=== PATIENT | female | born 1965 | race Caucasian/White ===

== ENCOUNTER 2017-03-09 13:43 | Inpatient (IN) | payer OTHER ==
[2017-03-09] VITALS (16 sets, daily range): BP systolic 72–174; BP diastolic 42–115; PULSE 92–115; RESP 16–28; TEMP 99.3–99.7; O2SAT 96–100
[~2017-03-09] VITALS: Ht 162.6 cm; Wt 67.2 kg
--- NOTE | 2017-03-09 13:57 | PD ---
HPI Chief Complaint: altered mental status, hypotension Time Seen by Provider: 13:57 Travel History International Travel<30 days: No Contact w/Intl Traveler<30days: No Traveled to known affect area: No History of Present Illness HPI 51-year-old female was taken by the assignment clerk to [facility] because her sister called them saying that she has been on 5 day alcohol binge and texted her saying that she wants to kill herself. At [facility] patient appeared to be altered mental status and blood pressure was 82 systolic. They sent her to the ER to be medically evaluated first. Patient's blood pressure in triage was 72 systolic. She was brought in as a straight back. Patient appeared very confused to me and was unable to answer my questions appropriately. She was maintaining her respirations initially. Her blood pressure was 80 systolic upon arrival. There was no family member to give any other history. The only thing she told me was that she has been vomiting since last night and has vomited multiple times. Patient was not a reliable historian at this point. She appeared disheveled and in significant distress. [facility] Past Medical History Narrative Medical List of her past medical, surgical, social and family history as reviewed from the nursing note. Social History Tobacco Use: Yes Allergies-Medications (Allergen,Severity, Reaction): Coded Allergies: UNOBTAINABLE (Unverified , 03/09/17) Comments Unavailable Narrative Medication Unavailable. Review of Systems Except as stated in HPI: all other systems reviewed are Neg Physical Exam Narrative GENERAL: Confused, moderate distress, disheveled SKIN: Focused skin assessment warm/dry. HEAD: Atraumatic. Normocephalic. EYES: Pupils equal and round. Scleral icterus. No injection or drainage. ENT: No nasal bleeding or discharge. Tongue is coated and brown/orange in color NECK: Trachea midline. No JVD. CARDIOVASCULAR: Regular rate and rhythm. No murmur appreciated. RESPIRATORY: No accessory muscle use. Clear to auscultation. Breath sounds equal bilaterally. GASTROINTESTINAL: Abdomen soft, non-tender, nondistended. Hepatic and splenic margins not palpable. MUSCULOSKELETAL: No obvious deformities. No clubbing. No cyanosis. No edema. NEUROLOGICAL: Confused, GCS of 13. No obvious cranial nerve deficits. Motor grossly within normal limits. Slurred speech. PSYCHIATRIC: Appropriate mood and affect; insight and judgment normal. Data Data Last Documented VS Vital Signs Date Time Temp Pulse Resp B/P Pulse Ox O2 Delivery O2 Flow Rate FiO2 03/09/17 15:18 100 100 03/09/17 14:12 80/48 03/09/17 13:58 94 18 03/09/17 13:50 Room Air Orders Electrocardiogram (03/09/17 14:07) Ammonia (03/09/17 14:07) Complete Blood Count With Diff (03/09/17 14:07) Comprehensive Metabolic Panel (03/09/17 14:07) Creatine Kinase (Cpk) (03/09/17 14:07) Prothrombin Time / Inr (Pt) (03/09/17 14:07) Troponin I (03/09/17 14:07) Thyroid Stimulating Hormone (03/09/17 14:07) Urinalysis - C+S If Indicated (03/09/17 14:07) Lactic Acid Sepsis Protocol (03/09/17 14:07) Arterial Blood Gas (Abg) (03/09/17 14:07) Blood Culture (03/09/17 14:07) Chest, Single Ap (03/09/17 14:07) Ct Brain W/O Iv Contrast(Rout) (03/09/17 14:07) Blood Glucose (03/09/17 14:07) Ecg Monitoring (03/09/17 14:07) Iv Access Insert/Monitor (03/09/17 14:07) Oximetry (03/09/17 14:07) Sodium Chloride 0.9% Flush (Ns Flush) (03/09/17 14:15) Sodium Chlor 0.9% 1000 Ml Inj (Ns 1000 M (03/09/17 14:07) Ct Abd/Pel W/O Iv Contrast (03/09/17 ) Pantoprazole Inj (Protonix Inj) (03/09/17 15:15) Pantoprazole Inj (Protonix Inj) (03/09/17 15:15) Type And Screen (03/09/17 14:10) Drug Screen, Random Urine (03/09/17 14:10) Sodium Chlor 0.9% 1000 Ml Inj (Ns 1000 M (03/09/17 14:45) Sodium Bicarb 8.4% (Ped) Inj (Sodium Bic (03/09/17 14:45) Sodium Chlor 0.9% 1... W/Sodium Bicarbon (03/09/17 14:34) Propofol 1000 Mg/100 Ml Inj (Diprivan 10 (03/09/17 14:56) Alcohol (Ethanol) (03/09/17 14:07) Midazolam Inj (Versed Inj) (03/09/17 15:21) Insert Temp Sensing Burden Cath (03/09/17 15:30) Succinylcholine Inj (Quelicin Inj) (03/09/17 15:45) Etomidate Inj (Amidate Inj) (03/09/17 15:45) Propofol 1000 Mg/100 Ml Inj (Diprivan 10 (03/09/17 15:45) ^ Infusion (03/09/17 15:43) RASS (03/09/17 15:43) Neurological Rass Scale KATARINA.Q2H (03/09/17 15:43) Midazolam Inj (Versed Inj) (03/09/17 15:45) Piperacil-Tazo 4.5 Gm Premix (Zosyn 4.5 (03/09/17 15:45) Vancomycin Inj (Vancomycin Inj) (03/09/17 15:45) Sodium Chlor 0.9% 1000 Ml Inj (Ns 1000 M (03/09/17 15:45) Urinary Catheter Insert/Apply (03/09/17 15:43) Christophe-Gastric Tube Insert/Mon (03/09/17 15:43) Lactulose Liq (Lactulose Liq) (03/09/17 16:00) Thiamine Inj (Thiamine Inj) (03/09/17 16:00) Admit Order (Ed Use Only) (03/09/17 15:53) CKMB (03/09/17 16:10) CKMB% (03/09/17 16:10) Labs Laboratory Tests Test 03/09/17 03/09/17 03/09/17 03/09/17 14:15 14:18 14:19 15:25 Blood Gas Puncture Site RT RADIAL Blood Gas Patient Temperature 98.6 Blood Gas HCO3 6 mmol/L Blood Gas Base Excess -21.9 mmol/L Blood Gas Oxygen Saturation 96 % Arterial Blood pH 7.14 Arterial Blood Partial 18 mmHg Pressure CO2 Arterial Blood Partial 125 mmHG Pressure O2 Arterial Blood Oxygen Content 16.5 Vol % Arterial Blood 0.7 % Carboxyhemoglobin Arterial Blood Methemoglobin 1.1 % Blood Gas Hemoglobin 12.1 G/DL Oxygen Delivery Device ROOM AIR Blood Gas Inspired Oxygen 21 % Ammonia 247 MCMOL/L Serum Osmolality 296 MOSM/KG White Blood Count 19.9 TH/MM3 Red Blood Count 4.21 MIL/MM3 Hemoglobin 13.5 GM/DL Hematocrit 41.8 % Mean Corpuscular Volume 99.3 FL Mean Corpuscular Hemoglobin 32.1 PG Mean Corpuscular Hemoglobin 32.3 % Concent Red Cell Distribution Width 13.0 % Platelet Count 220 TH/MM3 Mean Platelet Volume 7.7 FL Neutrophils (%) (Auto) 82.4 % Lymphocytes (%) (Auto) 14.2 % Monocytes (%) (Auto) 3.0 % Eosinophils (%) (Auto) 0.1 % Basophils (%) (Auto) 0.3 % Neutrophils # (Auto) 16.4 TH/MM3 Lymphocytes # (Auto) 2.8 TH/MM3 Monocytes # (Auto) 0.6 TH/MM3 Eosinophils # (Auto) 0.0 TH/MM3 Basophils # (Auto) 0.1 TH/MM3 CBC Comment AUTO DIFF Differential Total Cells 100 Counted Neutrophils % (Manual) 64 % Band Neutrophils % 16 % Lymphocytes % 17 % Monocytes % 3 % Neutrophils # (Manual) 15.9 TH/MM3 Differential Comment FINAL DIFF MANUAL Toxic Vacuolation PRESENT Platelet Estimate NORMAL Platelet Morphology Comment NORMAL Stomatocytes 1+ Su[place] Bodies PRESENT Prothrombin Time 11.0 SEC Prothromb Time International 1.0 RATIO Ratio Urine Color YELLOW Urine Turbidity CLOUDY Urine pH 5.5 Urine Specific [place] 1.013 Urine Protein 100 mg/dL Urine Glucose (UA) NEG mg/dL Urine Ketones TRACE mg/dL Urine Occult Blood MOD Urine Nitrite NEG Urine Bilirubin NEG Urine Urobilinogen LESS THAN 2.0 MG/DL Urine Leukocyte Esterase NEG Urine WBC 1 /hpf Urine Squamous Epithelial 2 /hpf Cells Urine Amorphous Sediment FEW Urine Hyaline Casts 24 /lpf Microscopic Urinalysis Comment CATH-CULT NOT IND Urine Opiates Screen NEG Urine Barbiturates Screen NEG Urine Amphetamines Screen NEG Urine Benzodiazepines Screen NEG Urine Cocaine Screen NEG Urine Cannabinoids Screen NEG MDM Medical Decision Making Medical Screen Exam Complete: Yes Emergency Medical Condition: Yes Medical Record Reviewed: Yes Interpretation(s) Twelve-lead EKG was reviewed by me. Normal sinus rhythm, normal axis, peaked T waves. Heart rate of 96 bpm. Differential Diagnosis Sepsis, alcoholic ketoacidosis, intracranial bleed, metabolic encephalopathy, electrolyte abnormality Narrative Course 5 PM the blood gas that I had asked for initially soon after seeing her showed severe metabolic acidosis. Based on that I decided to intubate her since patient had vomited about 4 or 5 times at this point and they were bilious in color and her mental status was not optimum. CT of her head did not show any abnormality. However CT of her abdomen and pelvis showed thickened gallbladder wall with signs of possible chronic cholecystitis. I had called for the general surgeon and the nurse from the OR call back who was assisting him and said he had let the surgeon know about the consult. Patient was given a total of 3 L of IV fluid bolus. I started her on 1 amp of sodium bicarbonate and a bicarbonate drip for the severe metabolic acidosis. She was also given IV Zosyn and vancomycin for sepsis coverage since her white count and lactic acid was elevated. Intubation and central line was done by me. Please refer to my procedure note. Chest x-ray after the central line showed a pneumothorax which was iatrogenic secondary to the central line placement. At this point a chest tube was placed by me to correct the pneumothorax. Please refer to my procedure note from that. Awaiting for the chest x-ray for the chest tube placement. Her calcium was critically low. 2 g of IV calcium chloride was ordered. Patient is admitted to the school cafeteria cook. Patient is in a critical condition. Critical Care Narrative Aggregate critical care time was 90 minutes. Time to perform other separately billable procedures was not included in the critical care time. My time did not include minutes spent treating any other patients simultaneously or on activities that did not directly contribute to the patient's treatment. The services I provided to this patient were to treat and/or prevent clinically significant deterioration that could result in: Septic shock, altered mental status, fulminant hepatitis, significantly abnormal electrolytes, respiratory failure I provided critical care services requiring my management, as noted below: Chart data review, documentation time, medication orders and management, vital sign assessments/reviewing monitor data, ordering and reviewing lab tests, ordering and interpreting/reviewing x-rays and diagnostic studies, care of the patient and discussion of the patient with the admitting physicians. Procedures Procedure Narrative After the risks and benefits were discussed the following procedure was performed: INTUBATION: The patient was put in optimal position for the procedure. Rapid sequence intubation was initiated by me using 20 milligrams of etomidate IV and 100 milligrams of succinyl choline IV. The patient was intubated with a 7.5 cuffed endotracheal tube. Tube placement was confirmed by visualization of the tube and balloon passing through the cords, capnometry and subsequent chest x-ray. Breath sounds were equal and well aerated bilaterally postintubation. No breath sounds over stomach. Patient tolerated procedure well. CENTRAL VENOUS LINE: The site was prepped with Betadine and sterilely draped. It was infiltrated with 1% lidocaine plain. The deep vein was cannulated using normal Seldinger technique. A triple lumen central line was placed in the right subclavian site and secured with simple interrupted suture. The site was sterilely dressed. The patient tolerated the procedure well. CHEST TUBE THORACOSTOMY: The 28 Turkmen chest was prepped with Betadine and sterilely draped. The area of the fifth intercostal interspace was infiltrated with 1% lidocaine plain. A 3 centimeter incision was made with a scalpel at the fifth intercostal space. Blunt dissection to the fourth intercostal interspace performed and the pleura was punctured with immediate garcia of air. Finger was inserted in the space and thoracostomy tube was placed, directed posteriorly and superiorly. Tube draining well. The thoracostomy tube was secured with suture. Sterile seal dressing placed. Patient tolerated procedure well. EKG Prior to Arrival: No HemaPrompt Point of Care Internal Pos. & Neg. Controls: Passed Fecal Specimen Occult Blood: Positive Physician Communication Physician Communication Dr. Mcfadden Diagnosis Primary Impression: Altered mental status Qualified Code: R41.0 - Disorientation Additional Impressions: Hyperammonemia Hyponatremia Fulminant hepatitis Sepsis Qualified Code: A41.9 - Sepsis, due to unspecified organism Hyperchloremia Metabolic acidosis Hypocalcemia Renal insufficiency Respiratory failure Qualified Code: J96.00 - Acute respiratory failure, unspecified whether with hypoxia or hypercapnia Hypotension Qualified Code: I95.9 - Hypotension, unspecified hypotension type Vomiting Qualified Code: R11.2 - Intractable vomiting with nausea, unspecified vomiting type Dehydration Cholecystitis Admitting Information Admitting Physician Requests: Admit Daisy Felix MD Mar 09, 2017 13:57
[2017-03-09] MEDS ORDERED: SODIUM CHLOR 0.9% 1000 ML INJ 1,000 ML IV SCH (14:07)
[2017-03-09] MEDS ORDERED: SODIUM CHLORIDE 0.9% FLUSH 5 ML FLUSH IV FLUSH PRN (14:15)
[2017-03-09] MEDS ORDERED: SODIUM CHLOR 0.9% 1000 ML INJ 1,000 ML IV ONE ×2 (14:45→15:45)
[2017-03-09] MEDS ORDERED: SODIUM BICARB 8.4% (PED) INJ 10 MEQ/10 ML SYR IV ONE (14:45)
[2017-03-09 14:47] LABS: BLOOD GAS BASE EXCESS -21.9 mmol/L (-2-2); BLOOD GAS CARBOXYHEMOGLOBIN 0.7 % (0-4); BLOOD GAS HCO3 6 mmol/L (22-26); BLOOD GAS METHEMOGLOBIN 1.1 % (0-2); BLOOD GAS O2 HGB SATURATION 96 % (90-100); BLOOD GAS OXYGEN CONTENT 16.5 Vol % (12.0-20.0); BLOOD GAS PCO2 18 mmHg (38-42); BLOOD GAS PO2 125 mmHG (61-120); BLOOD GAS TOTAL HGB 12.1 G/DL (12.0-16.0); TEMP CORR TO 98.6
[2017-03-09 14:48] LABS: CRITICAL VALUE YES; DRAW SITE RT RADIAL; FIO2 21 %; NUMBER OF ARTERIAL PUNCTURES 1; OXYGEN DEVICE ROOM AIR; STAT YES; ULNAR PULSE PRESENT
--- NOTE | 2017-03-09 14:52 | RADRPT ---
EXAM DATE/TIME: 03/09/2017 14:30 [facility] COMPARISON: No previous studies available for comparison. INDICATIONS : Altered mental status, vomiting, abdomen pain and diarhhea. RADIATION DOSE: 32.03 CTDIvol (mGy) MEDICAL HISTORY : SURGICAL HISTORY : ENCOUNTER: Initial ACUITY: 1 day PAIN SCALE: 1/10 LOCATION: cranial TECHNIQUE: Multiple contiguous axial images were obtained of the head. Using automated exposure control and adj ustment of the mA and/or kV according to patient size, radiation dose was kept as low as reasonably a chievable to obtain optimal diagnostic quality images. FINDINGS: CEREBRUM: The ventricles are normal for age. No evidence of midline shift, mass lesion, hemorrhage or acute in farction. No extra-axial fluid collections are seen. POSTERIOR FOSSA: The cerebellum and brainstem are intact. The 4th ventricle is midline. The cerebellopontine angle i s unremarkable. EXTRACRANIAL: The visualized portion of the orbits is intact. SKULL: The calvaria is intact. No evidence of skull fracture. CONCLUSION: Normal examination. Arturo Rivero Jr., MD on March 09, 2017 at 14:49 Board Certified Radiologist. This report was verified electronically.
[2017-03-09] MEDS ORDERED: PROPOFOL 1000 MG/100 ML INJ 100 ML ONE (14:56)
[2017-03-09] MEDS ORDERED: PANTOPRAZOLE INJ 80 MG in SODIUM CHLORIDE 0.9% INJ 35 ML IV ONE (15:15)
[2017-03-09 15:17] LABS: AUTOMATED NEUTROPHIL # 16.4 TH/MM3 (1.8-7.7); BASOPHIL # 0.1 TH/MM3 (0-0.2); BASOPHIL % 0.3 % (0.0-2.0); EOSINOPHIL % 0.1 % (0.0-4.0); HEMATOCRIT 41.8 % (35.0-46.0); LYMPH % 14.2 % (9.0-44.0); LYMPHOCYTE # 2.8 TH/MM3 (1.0-4.8); MEAN CELL VOLUME 99.3 FL (80.0-100.0); MEAN CORPUSCULAR HEMOGLOBIN 32.1 PG (27.0-34.0); MEAN CORPUSCULAR HGB CONC 32.3 % (32.0-36.0); NEUT % 82.4 % (16.0-70.0); PLATELET COUNT 220 TH/MM3 (150-450); RED BLOOD COUNT 4.21 MIL/MM3 (4.00-5.30); WHITE BLOOD COUNT 19.9 TH/MM3 (4.0-11.0)
[2017-03-09 15:18] LABS: HEMO FLAGS AUTO DIFF
--- NOTE | 2017-03-09 15:19 | RADRPT ---
EXAM DATE/TIME: 03/09/2017 14:36 [facility] COMPARISON: No previous studies available for comparison. INDICATIONS : Altered mental status, vomiting, abdomen pain and diarrhea ORAL CONTRAST: No oral contrast ingested. RADIATION DOSE: 5.28 CTDIvol (mGy) MEDICAL HISTORY : None SURGICAL HISTORY : None. ENCOUNTER: Initial ACUITY: 1 day PAIN SCALE: 2/10 LOCATION: Umbilical TECHNIQUE: Volumetric scanning of the abdomen and pelvis was performed. Using automated exposure control and ad justment of the mA and/or kV according to patient size, radiation dose was kept as low as reasonably achievable to obtain optimal diagnostic quality images. FINDINGS: Lung bases are clear. The liver shows some mild fatty replacement. The gallbladder is prominent wit h a thick-walled gallbladder. Spleen, pancreas, adrenals and kidneys are unremarkable. There is no asci linda or adenopathy appreciated. Pelvic contents are unremarkable. CONCLUSION: 1. Distended gallbladder with thick wall suspicious for at least chronic cholecystitis. Correlation is suggested. 2. Fatty replacement to the liver. Nitin Styles MD FACR on March 09, 2017 at 15:11 Board Certified Radiologist. This report was verified electronically.
[2017-03-09] MEDS ORDERED: MIDAZOLAM HCL 5 MG/ML VIAL (1 ML) ONE ×2 (15:21→16:44)
[2017-03-09] MEDS ORDERED: PIPERACIL-TAZO 4.5 GM PREMIX 100 ML IV ONE (15:45)
[2017-03-09] MEDS ORDERED: PROPOFOL 1000 MG/100 ML INJ 100 ML IV SCH (15:45)
[2017-03-09] MEDS ORDERED: MIDAZOLAM HCL 2 MG/2 ML VIAL IV PUSH ONE (15:45)
[2017-03-09] MEDS ORDERED: VANCOMYCIN INJ 1,000 MG in SODIUM CHLOR 0.9% 250 ML INJ 250 ML IV ONE (15:45)
[2017-03-09] MEDS ORDERED: ETOMIDATE 20 MG/10 ML VIAL IV PUSH ONE (15:45)
[2017-03-09] MEDS ORDERED: SUCCINYLCHOLINE CHLORIDE 200 MG/10 ML VIAL IV PUSH ONE (15:45)
[2017-03-09 15:47] LABS: BANDS 16 % (0-6); NEUTROPHIL # MANUAL DIFF 15.9 TH/MM3 (1.8-7.7); POLYS (SEG NEUTROPHILS) 64 % (16-70); WBC DIFF SAMPLE 100
[2017-03-09 15:55] LABS: HOWELL-JOLLY BODIES PRESENT (NONE SEEN); STOMATOCYTES 1+ (NORMAL); TOXIC VACUOLATION PRESENT (NONE SEEN)
[2017-03-09 15:56] LABS: PLATELET ESTIMATE SMEAR NORMAL (NORMAL); PLATELET MORPHOLOGY NORMAL (NORMAL); SCAN/DIFF FINAL DIFF MANUAL
[2017-03-09] MEDS ORDERED: SODIUM BICARBONATE 8.4% INJ 50 MEQ/50 ML SYR IV PUSH ONE (16:00)
[2017-03-09] MEDS ORDERED: Vancomycin Consult Pharmacy 1 EA OTHER SCH (16:00)
[2017-03-09] MEDS ORDERED: THIAMINE HCL 200 MG/2 ML VIAL IM ONE (16:00)
[2017-03-09] MEDS ORDERED: LACTULOSE SYRUP 20 GM/30 ML CUP OG-TUBE ONE (16:00)
[2017-03-09 16:16] LABS: BLOOD, URINE MOD (NEG); GLUCOSE,URINE NEG (NEG); HYALINE CAST, URINE 24 /lpf (RARE); KETONE, URINE TRACE mg/dL (NEG); NITRITE,URINE NEG (NEG); PH, URINE 5.5 (5.0-8.5); SQUAMOUS EPITHELIAL CELL URINE 2 /hpf (0-5); URINE COLOR YELLOW (YELLW/STRAW)
[2017-03-09 16:17] LABS: AMPHETAMINE, URINE NEG (NEG); BARBITURATES, URINE NEG (NEG); COCAINE, URINE NEG (NEG)
[2017-03-09] MEDS: PANTOPRAZOLE INJ 80 MG in SODIUM CHLORIDE 0.9% INJ 100 ML IV SCH ×2 (16:22→17:26)
[2017-03-09] MEDS: SODIUM BICARBONATE 8.4% INJ 154 MEQ in SODIUM CHLOR 0.9% 1000 ML INJ 846 ML IV SCH ×3 (16:22→18:32)
[2017-03-09 16:26] LABS: COMMENT (UR) CATH-CULT NOT IND; CULTURE IF INDICATED CATH CULTURE NOT IND
--- NOTE | 2017-03-09 16:27 | RADRPT ---
EXAM DATE/TIME: 03/09/2017 16:16 [facility] COMPARISON: CT ABDOMEN & PELVIS W/O CONTRAST, March 09, 2017, 14:36. INDICATIONS : Post intubation and central line placement. MEDICAL HISTORY : Unobtainable. SURGICAL HISTORY : Unobtainable. ENCOUNTER: Initial ACUITY: 1 day PAIN SCORE: Non-responsive. LOCATION: Bilateral chest FINDINGS: ET tube nasogastric tube central line are in good position. Minimal parenchymal changes are seen in the left base. There may be pneumothorax on the right. Repeat chest x-ray is pending. CONCLUSION: Possible right pneumothorax. Repeat chest x-ray is pending. Nitin Styles MD FACR on March 09, 2017 at 16:23 Board Certified Radiologist. This report was verified electronically.
[2017-03-09] MEDS ORDERED: NOREPINEPHRINE-DEXTROSE DRIP 250 ML IV SCH (16:30)
[2017-03-09] MEDS ORDERED: TERBUTALINE INJ 1 MG/ML AMP SQ PRN (16:30)
--- NOTE | 2017-03-09 16:34 | HHI.HP ---
[facility] Service Critical Care Medicine Primary Care Physician No Primary Care Physician Admission Diagnosis altered mental status, acute cholecystitis, sepsis, liver failure Diagnosis: (1) Septic shock Diagnosis: Principal (2) Acute respiratory failure Diagnosis: Principal (3) Hepatic encephalopathy Diagnosis: Principal (4) Metabolic acidemia Diagnosis: Principal (5) Upper gastrointestinal bleed Diagnosis: Principal (6) Probable acute cholecystitis Diagnosis: Principal (7) Acute kidney failure Diagnosis: Principal (8) Iatrogenic pneumothorax Diagnosis: Principal (9) Hypocalcemia Diagnosis: Principal (10) Hyponatremia Diagnosis: Principal (11) Transaminitis Diagnosis: Principal Chief Complaint: Severe lethargy, sepsis Travel History International Travel<30 Days: No Contact w/Intl Traveler <30 Da: No Traveled to Known Affected Are: No Sepsis Criteria SIRS Criteria (2 or more): Heart rate over 90, RR > 20 or PaCO2 < 32, WBC > 47308, < 4000 or > 10% bands Sepsis Criteria (SIRS+source): Infect source susp/known Severe Sepsis (+one): Hypotension, Lactate >2, Acute Oliguria/Renal Failure Criteria Outcome: Meets septic shock criteria History of Present Illness Patient is a 51-year-old female with past medical history of alcohol dependence , no other known history was brought in by the family members after she went on a heavy drinking binge for 5 days. Family initially took the patient to [facility] but they refused admit as a patient was too sick. No other history is available as the patient is intubated and there is no bystander. Initial vitals showed a blood pressure 72/42 patient was tachycardic. She received 3 L normal saline IV fluid bolus. ABG showed pH of 7.14 with a base excess of -22. Patient also had altered mental status. Patient was intubated due to severe metabolic acidosis and altered mental status. Lab work came back abnormal, white count was 19.9 with left shift, BUN 38 creatinine of 1.76, protein corrected calcium was 6.9 bicarbonate was 9.5 goal is to 14 AST was 4426. Ammonia level was 247. ALT and lactic acid are pending at this time. A CT abdomen pelvis showed a dilated gallbladder concerning for at least chronic cholecystitis. Gen. surgery had been consulted for possible acute cholecystitis I evaluated the patient in the ED. Hemodynamically improved after 3 L boluses, patient remains confused on the ventilator. Patient was noted to have coffee- ground material from NG tube. IV Protonix infusion started and I have added octreotide. I have discussed with Dr. Nelson, patient will undergo EGD tomorrow a.m. patient received vancomycin and Zosyn in the ED which will be continued. General surgery consulted with Dr. Dumont pending at this time. I have also requested Tylenol and salicylate levels, Liver enzymes are extremely elevated which could be from ischemic hepatitis. It was also noted that patient had pneumothorax after central line placement by the ER physician. I have discussed this with Dr. Felix and she will place a chest tube. Lactate pending at this time Review of Systems ROS Limitations: Intubated, Altered Mental Status Past Family Social History Allergies: Coded Allergies: UNOBTAINABLE (Unverified , 03/09/17) Past Medical History History of alcohol dependence Other history unknown Past Surgical History Unobtainable Reported Medications Unobtainable Active Ordered Medications Reviewed Family History Unobtainable Social History History of alcohol dependence other history is unknown Physical Exam Vital Signs Vital Signs Date Time Temp Pulse Resp B/P Pulse Ox O2 Delivery O2 Flow Rate FiO2 03/09/17 14:12 80/48 03/09/17 13:58 94 18 174/115 97 03/09/17 13:50 92 16 72/42 100 Room Air Physical Exam GENERAL: 51-year-old white female patient who is intubated sedated with propofol SKIN: Skin warm and dry HEAD: Atraumatic. Normocephalic. EYES: Pupils equal, reactive. No scleral icterus. ENT: Orotracheally intubated. Oral mucosa dry NECK: Trachea midline. No JVD. CARDIOVASCULAR: Tachycardic and regular. No murmurs RESPIRATORY: ACV. Breath sounds equal bilaterally. No wheezes or crackles GASTROINTESTINAL: Abdomen soft, patient has right upper quadrant and epigastric tenderness. No rebound MUSCULOSKELETAL: No obvious deformities. No clubbing. No cyanosis. No edema. NEUROLOGICAL: Intubated sedated. Opens eyes to stimulation. Moves all extremities but does not follow commands Laboratory Laboratory Tests Test 03/09/17 03/09/17 03/09/17 14:15 14:18 14:19 Blood Gas Puncture Site RT RADIAL Blood Gas Patient Temperature 98.6 Blood Gas HCO3 6 Blood Gas Base Excess -21.9 Blood Gas Oxygen Saturation 96 Arterial Blood pH 7.14 Arterial Blood Partial 18 Pressure CO2 Arterial Blood Partial 125 Pressure O2 Arterial Blood Oxygen Content 16.5 Arterial Blood 0.7 Carboxyhemoglobin Arterial Blood Methemoglobin 1.1 Blood Gas Hemoglobin 12.1 Oxygen Delivery Device ROOM AIR Blood Gas Inspired Oxygen 21 Ammonia 247 White Blood Count 19.9 Red Blood Count 4.21 Hemoglobin 13.5 Hematocrit 41.8 Mean Corpuscular Volume 99.3 Mean Corpuscular Hemoglobin 32.1 Mean Corpuscular Hemoglobin 32.3 Concent Red Cell Distribution Width 13.0 Platelet Count 220 Mean Platelet Volume 7.7 Neutrophils (%) (Auto) 82.4 Lymphocytes (%) (Auto) 14.2 Monocytes (%) (Auto) 3.0 Eosinophils (%) (Auto) 0.1 Basophils (%) (Auto) 0.3 Neutrophils # (Auto) 16.4 Lymphocytes # (Auto) 2.8 Monocytes # (Auto) 0.6 Eosinophils # (Auto) 0.0 Basophils # (Auto) 0.1 CBC Comment AUTO DIFF Differential Total Cells 100 Counted Neutrophils % (Manual) 64 Band Neutrophils % 16 Lymphocytes % 17 Monocytes % 3 Neutrophils # (Manual) 15.9 Differential Comment FINAL DIFF MANUAL Toxic Vacuolation PRESENT Platelet Estimate NORMAL Platelet Morphology Comment NORMAL Stomatocytes 1+ [place] Bodies PRESENT Prothrombin Time 11.0 Prothromb Time International 1.0 Ratio Result Diagram: 03/09/[address] abdomen pelvis shows thick dilated gallbladder concerning for acute or chronic cholecystitis Septic Shock Reassessment Heart: Other (tachycardic) Lungs: Clear Skin: Warm, Dry Peripheral Pulses: Weak Right Radial Weak Left Radial Assessment and Plan Assessment and Plan NEURO: Hepatic encephalopathy Alcohol dependence -Propofol and Versed for sedation and ventilator synchrony -Ammonia level is 247, repeat ammonia level in the AM -Start lactulose 30 mL to 6 hours -Start rifaximin 550 mg by mouth po q12 -Thiamine 100 mg daily IV -Check Tylenol and salicylate level. Urine drug screen is negative RESP: Acute respiratory failure Severe metabolic acidosis Iatrogenic right pneumothorax -Intubated for airway protection and significant metabolic acidosis -Repeat ABG pending, vent bundle -Continue ACV 16/450/5 and FiO2 40% -DuoNeb every 6 hours and when necessary -Bicarbonate infusion after 2 Amps IV -Right pneumothorax secondary to ER physician placing a right central line, ER will place a chest tube CV: Septic shock Lactic acidosis -Normal saline 4 L IV fluids bolus and bicarb infusion at 150 ml per hour -Levophed as needed to keep MAP >65 -Trend lactic acid GI: Hyperammonemia Probable acute cholecystitis Upper GI bleed Acute hepatitis with very elevated AST (ALT pending) -IV Protonix 80 mg 1 and 8 mg per hour infusion. Nothing by mouth -Start on octreotide infusion -General surgery and gastroenterology consulted pending -Broad-spectrum antibiotics -Hepatitis discriminant function is not elevated, no indication for steroids -I recommend medical management not a surgical candidate at this time, due to multiple metabolic derangements -Check Tylenol and salicylate level -D/W with Dr. Nelson, more likely to be ischemic hepatitis than alcohol induced. -EGD in AM : Acute kidney failure Severe Dehydration -Aggressive fluid resuscitation as above -Monitor renal function closely. Burden catheter ID: Septic shock Probable acute cholecystitis -IV vancomycin pharmacy to dose, Zosyn renally adjusted -F/u on Blood urine and sputum cultures -Gen. surgery consult is pending at this time HEME: -Monitor CBC, CMP, Coags -INR normal ENDO: Hypocalcemia Hyponatremia -Electrolyte replacement per protocol PROPH: -Bilateral lower extremity SCDs. IV Protonix infusion. Chemical DVT prophylaxis is contraindicated due to GI bleed LINES: -Right subclavian central line placed by ED physician CC time 95 min Patient is critically ill with guarded prognosis due to septic shock and multiorgan failure namely respiratory failure, shock, liver failure, hyperammonemia and renal failure with severe hepatic encephalopathy Code Status Full Discussed Condition With Laron Quach MD Mar 09, 2017 16:34
[2017-03-09] MEDS ORDERED: CHLORHEXIDINE GLUCONATE 2 % 1 PACK (2 CLOTHS) TOP PRN (16:45)
[2017-03-09] MEDS ORDERED: MISCELLANEOUS NURSING INFORMATION XX SCH (16:45)
[2017-03-09] MEDS ORDERED: RESP: ALBUTEROL 2.5 MG/3 ML NEB (PRN) INH (16:45)
--- NOTE | 2017-03-09 16:47 | RADRPT ---
EXAM DATE/TIME: 03/09/2017 16:37 [facility] COMPARISON: CHEST SINGLE AP, March 09, 2017, 16:16. INDICATIONS : Possible pneumothorax. MEDICAL HISTORY : Unobtainable SURGICAL HISTORY : Unobtainable ENCOUNTER: Subsequent ACUITY: 1 day PAIN SCORE: Non-responsive. LOCATION: Right upper chest FINDINGS: There is a pneumothorax on the right with moderate tension. Left lung is clear. Heart and pulmonary vascularity are normal. Central line is in good position. CONCLUSION: Moderate right pneumothorax with tension. Nitin Styles MD FACR on March 09, 2017 at 16:38 Board Certified Radiologist. This report was verified electronically.
[2017-03-09 16:52] LABS: BLOOD UREA NITROGEN 38 MG/DL (7-18)
[2017-03-09 16:57] LABS: ANION GAP 30 MEQ/L (5-15); BICARBONATE 9.5 MEQ/L (21.0-32.0); CHLORIDE 81 MEQ/L (98-107); GLOMERULAR FILTRATION RATE 30 ML/MIN (>89); POTASSIUM 4.7 MEQ/L (3.5-5.1)
[2017-03-09] MEDS ORDERED: LIDOCAINE 1%/EPINEPHrine 1:100,000 SOLN 20 ML VIAL INFIL ONE ×2 (17:00→17:15)
[2017-03-09 17:05] LABS: ALKALINE PHOSPHATASE 200 U/L (45-117); AST (GOT) 4426 U/L (15-37); CREATINE KINASE 637 U/L (26-192); TOTAL BILIRUBIN ADULT 1.2 MG/DL (0.2-1.0)
[2017-03-09 17:11] LABS: CALCIUM-PROTEIN CORRECTED 6.9 MG/DL (8.5-10.1); SODIUM (NA) 120 MEQ/L (136-145)
[2017-03-09] MEDS ORDERED: LIDOCAINE HCL 1% 50 ML VIAL INFIL ONE (17:15)
[2017-03-09] MEDS ORDERED: LIDOCAINE HCL 1% 30 ML VIAL INFIL ONE (17:15)
[2017-03-09] MEDS ORDERED: OCTREOTIDE INJ 50 MCG/ML AMP IV ONE (17:15)
[2017-03-09] MEDS: MIDAZOLAM 100 MG/ML INJ 100 ML IV SCH (17:25)
[2017-03-09] MEDS ORDERED: SODIUM BICARBONATE 8.4% INJ 75 MEQ in SODIUM CHLOR 0.45% 1000 ML INJ 1,000 ML IV SCH (17:30)
[2017-03-09] MEDS ORDERED: CALCIUM CHLORIDE 10% SOLN 1 GRAM/10 ML SYR IV PUSH ONE ×2 (17:45)
[2017-03-09 18:10] LABS: ALT (GPT) 967 U/L (10-53)
[2017-03-09] MEDS ORDERED: CALCIUM CHLORIDE INJ 2 GM in DEXTROSE 5% IN WATER 100ML INJ 100 ML IV ONE ×2 (18:15)
[2017-03-09 18:24] LABS: ACETAMINOPHEN 10.2 MCG/ML (10.0-30.0); MAGNESIUM 1.1 MG/DL (1.5-2.5)
[2017-03-09 18:41] LABS: LACTIC ACID GHOST NOT REPORTABLE
[2017-03-09 18:44] LABS: CKMB 10.2 NG/ML (0.5-3.6)
[2017-03-09 18:51] LABS: AUTOMATED NEUTROPHIL # 9.7 TH/MM3 (1.8-7.7); BASOPHIL % 0.4 % (0.0-2.0); EOSINOPHIL # 0.1 TH/MM3 (0-0.4); EOSINOPHIL % 0.6 % (0.0-4.0); HEMATOCRIT 34.8 % (35.0-46.0); LYMPH % 14.8 % (9.0-44.0); LYMPHOCYTE # 1.7 TH/MM3 (1.0-4.8); MEAN CELL VOLUME 94.1 FL (80.0-100.0); MEAN CORPUSCULAR HEMOGLOBIN 32.5 PG (27.0-34.0); MEAN CORPUSCULAR HGB CONC 34.6 % (32.0-36.0); MONO % 1.2 % (0.0-8.0); PLATELET COUNT 155 TH/MM3 (150-450); RED CELL DISTRIBUTION WIDTH 12.4 % (11.6-17.2); WHITE BLOOD COUNT 11.7 TH/MM3 (4.0-11.0)
[2017-03-09 18:55] LABS: HEMO FLAGS AUTO DIFF
--- NOTE | 2017-03-09 18:57 | RADRPT ---
EXAM DATE/TIME: 03/09/2017 18:19 [facility] COMPARISON: CHEST SINGLE AP, March 09, 2017, 16:37. INDICATIONS : Post chest tube placement. MEDICAL HISTORY : Moderate right pneumothorax with tension. SURGICAL HISTORY : None. ENCOUNTER: Initial ACUITY: 1 day PAIN SCORE: Non-responsive. LOCATION: Bilateral chest FINDINGS: There is a right-sided chest tube without pneumothorax. Right central line in superior vena cava. End otracheal tube in satisfactory position. NG enters stomach. Subcutaneous air right chest wall. Left l oj is clear. Minimal basal atelectasis. CONCLUSION: 1. Right-sided chest tube with resolution of previous right pneumothorax. Subcutaneous air in right c hest wall. Right central line, endotracheal tube and nasogastric tube in satisfactory position. Zac Matthews MD on March 09, 2017 at 18:54 Board Certified Radiologist. This report was verified electronically.
[2017-03-09 19:33] LABS: BANDS 16 % (0-6); METAMYELOCYTES 1 % (0-1); NEUTROPHIL # MANUAL DIFF 9.6 TH/MM3 (1.8-7.7); PLATELET ESTIMATE SMEAR NORMAL (NORMAL); PLATELET MORPHOLOGY NORMAL (NORMAL); POLYS (SEG NEUTROPHILS) 65 % (16-70); SCAN/DIFF FINAL DIFF MANUAL; WBC DIFF SAMPLE 100
[2017-03-09 19:34] LABS: BLOOD GAS BASE EXCESS -16.2 mmol/L (-2-2); BLOOD GAS CARBOXYHEMOGLOBIN 1.3 % (0-4); BLOOD GAS HCO3 10 mmol/L (22-26); BLOOD GAS O2 HGB SATURATION 95 % (90-100); BLOOD GAS OXYGEN CONTENT 16.3 Vol % (12.0-20.0); BLOOD GAS PCO2 22 mmHg (38-42); BLOOD GAS PO2 115 mmHg (61-120); BLOOD GAS TOTAL HGB 12.1 G/DL (12.0-16.0); TEMP CORR TO 98.6
[2017-03-09 19:35] LABS: CRITICAL VALUE YES; DRAW SITE RT BRACHIAL; FIO2 40 %; NUMBER OF ARTERIAL PUNCTURES 1; OXYGEN DEVICE VENTILATOR; STAT NO; VENT SETTINGS AC16/450/5PEEP
[2017-03-09] MEDS: PROPOFOL 1000 MG/100 ML INJ 100 ML IV SCH (19:38)
[2017-03-09] MEDS: OCTREOTIDE INJ 500 MCG in SODIUM CHLORID 0.9% 500 ML INJ 499.5 ML IV SCH (19:38)
[2017-03-09] MEDS: LACTULOSE SYRUP 20 GM/30 ML CUP PO SCH ×2 (19:38→21:02)
[2017-03-09] MEDS: PIPERACIL-TAZO 4.5 GM PREMIX 100 ML IV SCH (19:39)
[2017-03-09] MEDS: THIAMINE INJ 100 MG in SODIUM CHLORIDE 0.9% INJ 100 ML IV SCH (19:39)
[2017-03-09] MEDS: CHLORHEXIDINE 0.12% (ORAL KIT) 15 ML CUP MT SCH (19:42)
[2017-03-09] MEDS ORDERED: SODIUM BICARBONATE 8.4% SOLN 50 MEQ/50 ML VIAL IV ONE (20:30)
[2017-03-09] MEDS: RESP: ALBUTEROL 2.5 MG/IPRATROPIUM 0.5 MG NEB (SCH) NEB (20:35)
[2017-03-09] MEDS: RIFAXIMIN 550 MG TAB PO SCH (21:02)
[2017-03-09] MEDS: SODIUM BICARBONATE 8.4% INJ 150 MEQ in SODIUM CHLOR 0.45% 1000 ML INJ 1,000 ML IV SCH (21:21)
[2017-03-09 23:40] LABS: AUTOMATED NEUTROPHIL # 6.6 TH/MM3 (1.8-7.7); BASOPHIL % 0.1 % (0.0-2.0); HEMATOCRIT 35.4 % (35.0-46.0); HEMO FLAGS DIFF FINAL; LYMPH % 12.2 % (9.0-44.0); LYMPHOCYTE # 0.9 TH/MM3 (1.0-4.8); MEAN CELL VOLUME 94.2 FL (80.0-100.0); MEAN CORPUSCULAR HEMOGLOBIN 32.2 PG (27.0-34.0); MEAN CORPUSCULAR HGB CONC 34.2 % (32.0-36.0); MONO % 0.6 % (0.0-8.0); NEUT % 87.1 % (16.0-70.0); PLATELET COUNT 140 TH/MM3 (150-450); RED BLOOD COUNT 3.76 MIL/MM3 (4.00-5.30); RED CELL DISTRIBUTION WIDTH 12.6 % (11.6-17.2); WHITE BLOOD COUNT 7.6 TH/MM3 (4.0-11.0)
[2017-03-10] VITALS (22 sets, daily range): BP systolic 121–144; BP diastolic 68–80; PULSE 101–112; RESP 16–24; TEMP 98.7–100; O2SAT 99–100
[2017-03-10 00:09] LABS: ALKALINE PHOSPHATASE 179 U/L (45-117); ANION GAP 26 MEQ/L (5-15); AST (GOT) 3576 U/L (15-37); BICARBONATE 14.8 MEQ/L (21.0-32.0); BLOOD UREA NITROGEN 43 MG/DL (7-18); CHLORIDE 82 MEQ/L (98-107); GLOMERULAR FILTRATION RATE 26 ML/MIN (>89); MAGNESIUM 1.3 MG/DL (1.5-2.5); TOTAL BILIRUBIN ADULT 1.2 MG/DL (0.2-1.0)
[2017-03-10 00:27] LABS: POTASSIUM 4.4 MEQ/L (3.5-5.1)
[2017-03-10 00:28] LABS: ALT (GPT) 737 U/L (10-53)
[2017-03-10 00:30] LABS: SODIUM (NA) 123 MEQ/L (136-145)
[2017-03-10] MEDS: PROPOFOL 1000 MG/100 ML INJ 100 ML IV SCH ×5 (00:38→21:15)
[2017-03-10] MEDS: PIPERACIL-TAZO 4.5 GM PREMIX 100 ML IV SCH ×2 (01:25→09:23)
[2017-03-10] MEDS: RESP: ALBUTEROL 2.5 MG/IPRATROPIUM 0.5 MG NEB (SCH) NEB ×4 (03:01→20:06)
[2017-03-10] MEDS: CHLORHEXIDINE GLUCONATE 2 % 1 PACK (2 CLOTHS) TOP SCH (04:00)
[2017-03-10 04:32] LABS: AUTOMATED NEUTROPHIL # 9.8 TH/MM3 (1.8-7.7); BASOPHIL % 0.2 % (0.0-2.0); HEMATOCRIT 35.2 % (35.0-46.0); HEMO FLAGS DIFF FINAL; LYMPH % 2.3 % (9.0-44.0); LYMPHOCYTE # 0.2 TH/MM3 (1.0-4.8); MEAN CELL VOLUME 92.2 FL (80.0-100.0); MEAN CORPUSCULAR HEMOGLOBIN 32.4 PG (27.0-34.0); MEAN CORPUSCULAR HGB CONC 35.2 % (32.0-36.0); MONO % 0.9 % (0.0-8.0); NEUT % 96.6 % (16.0-70.0); PLATELET COUNT 132 TH/MM3 (150-450); RED BLOOD COUNT 3.82 MIL/MM3 (4.00-5.30); RED CELL DISTRIBUTION WIDTH 12.9 % (11.6-17.2); WHITE BLOOD COUNT 10.2 TH/MM3 (4.0-11.0)
[2017-03-10] MEDS: OCTREOTIDE INJ 500 MCG in SODIUM CHLORID 0.9% 500 ML INJ 499.5 ML IV SCH (04:35)
[2017-03-10] MEDS: MIDAZOLAM 100 MG/ML INJ 100 ML IV SCH (04:35)
[2017-03-10] MEDS: SODIUM BICARBONATE 8.4% INJ 150 MEQ in SODIUM CHLOR 0.45% 1000 ML INJ 1,000 ML IV SCH (04:35)
[2017-03-10 05:25] LABS: BICARBONATE 21.3 MEQ/L (21.0-32.0); TOTAL BILIRUBIN ADULT 1.2 MG/DL (0.2-1.0)
[2017-03-10 06:00] LABS: POTASSIUM 4.1 MEQ/L (3.5-5.1)
[2017-03-10] MEDS: CHLORHEXIDINE 0.12% (ORAL KIT) 15 ML CUP MT SCH ×2 (09:22→21:16)
[2017-03-10] MEDS: RIFAXIMIN 550 MG TAB PO SCH ×2 (09:24→21:15)
[2017-03-10] MEDS: LACTULOSE SYRUP 20 GM/30 ML CUP PO SCH ×4 (09:24→21:15)
[2017-03-10] MEDS: THIAMINE INJ 100 MG in SODIUM CHLORIDE 0.9% INJ 100 ML IV SCH (09:24)
--- NOTE | 2017-03-10 09:37 | PD.PN.STU ---
Subjective Remarks Patient initially presented to ED yesterday with altered mental status and shock with a 5 day history alcohol binge and a past medical history of alcohol dependence per ED note. Consulted for surgical eval for acute cholecystis as cause of sepsis given CT findings of enlarged gallbladder and thickened gallbladder wall. Objective Vitals Vital Signs Date Time Temp Pulse Resp B/P Pulse Ox O2 Delivery O2 Flow Rate FiO2 03/10/17 07:32 100 40 03/10/17 06:00 104 03/10/17 06:00 104 19 128/74 100 03/10/17 05:09 100 40 03/10/17 05:01 107 20 127/74 100 03/10/17 04:00 98.7 109 20 130/68 100 03/10/17 04:00 40 03/10/17 04:00 109 03/10/17 03:00 105 20 132/71 100 03/10/17 02:00 104 24 133/70 100 03/10/17 02:00 104 03/10/17 01:00 109 21 136/71 100 03/10/17 00:33 100 40 03/10/17 00:00 109 03/10/17 00:00 100.0 109 23 144/73 100 03/10/17 00:00 40 03/09/17 23:00 108 26 146/74 100 03/09/17 22:00 110 03/09/17 22:00 110 25 135/63 100 03/09/17 21:59 100 40 03/09/17 21:00 109 24 136/66 100 03/09/17 20:37 100 40 03/09/17 20:30 111 26 137/69 100 03/09/17 20:00 40 03/09/17 20:00 99.3 115 28 138/65 100 03/09/17 20:00 115 03/09/17 19:30 115 27 128/63 100 03/09/17 19:00 113 26 129/64 100 03/09/17 18:16 113 140/97 100 Ventilator 03/09/17 18:00 96 40 03/09/17 18:00 100 100 03/09/17 16:48 114 152/86 100 Ventilator 03/09/17 15:18 100 100 03/09/17 14:12 80/48 03/09/17 13:58 94 18 174/115 97 03/09/17 13:50 92 16 72/42 100 Room Air I/O 03/09/17 03/09/17 03/09/17 03/10/17 03/10/17 03/10/17 07:00 15:00 23:00 07:00 15:00 23:00 Intake Total 1110 ml 2215 ml Output Total 768 ml 1272 ml Balance 342 ml 943 ml Intake IV Total 1110 ml 2055 ml Tube Irrigant 160 ml Output Urine Total 700 ml 700 ml Gastric Drainage Total 50 ml 500 ml Chest Tube Drainage Total 18 ml 72 ml Result Diagram: 03/10/17 0405 03/10/17 0405 Other Results Laboratory Tests Test 03/09/17 03/09/17 03/09/17 03/09/17 14:15 14:18 14:19 15:25 Blood Gas HCO3 6 mmol/L (22-26) Blood Gas Base Excess -21.9 mmol/L (-2-2) Arterial Blood pH 7.14 (7.380-7.420) Arterial Blood Partial 18 mmHg (38-42) Pressure CO2 Arterial Blood Partial 125 mmHG Pressure O2 (61-120) Ammonia 247 MCMOL/L (11-32) Serum Osmolality 296 MOSM/KG (275-295) White Blood Count 19.9 TH/MM3 (4.0-11.0) Neutrophils (%) (Auto) 82.4 % (16.0-70.0) Neutrophils # (Auto) 16.4 TH/MM3 (1.8-7.7) Band Neutrophils % 16 % (0-6) Neutrophils # (Manual) 15.9 TH/MM3 (1.8-7.7) Toxic Vacuolation PRESENT (NONE SEEN) Stomatocytes 1+ (NORMAL) Urine Turbidity CLOUDY (CLEAR) Urine Protein 100 mg/dL (NEG-TRACE) Urine Ketones TRACE mg/dL (NEG) Urine Occult Blood MOD (NEG) Test 03/09/17 03/09/17 03/09/17 03/09/17 16:10 16:29 18:36 19:20 Sodium Level 120 MEQ/L (136-145) Chloride Level 81 MEQ/L (98-107) Carbon Dioxide Level 9.5 MEQ/L (21.0-32.0) Anion Gap 30 MEQ/L (5-15) Blood Urea Nitrogen 38 MG/DL (7-18) Creatinine 1.76 MG/DL (0.50-1.00) Estimat Glomerular Filtration 30 ML/MIN (>89) Rate Random Glucose 214 MG/DL (74-106) Calcium Level 5.8 MG/DL (8.5-10.1) Protein Corrected Calcium 6.9 MG/DL (8.5-10.1) Magnesium Level 1.1 MG/DL (1.5-2.5) Total Bilirubin 1.2 MG/DL (0.2-1.0) Aspartate Amino Transf 4426 U/L (AST/SGOT) (15-37) Alanine Aminotransferase 967 U/L (10-53) (ALT/SGPT) Alkaline Phosphatase 200 U/L (45-117) Total Creatine Kinase 637 U/L (26-192) Creatine Kinase MB 10.2 NG/ML (0.5-3.6) Troponin I 0.14 NG/ML (0.02-0.05) Total Protein 4.6 GM/DL (6.4-8.2) Albumin 2.6 GM/DL (3.4-5.0) Lactic Acid Level 3.9 mmol/L (0.4-2.0) White Blood Count 11.7 TH/MM3 (4.0-11.0) Red Blood Count 3.70 MIL/MM3 (4.00-5.30) Hematocrit 34.8 % (35.0-46.0) Neutrophils (%) (Auto) 83.0 % (16.0-70.0) Neutrophils # (Auto) 9.7 TH/MM3 (1.8-7.7) Band Neutrophils % 16 % (0-6) Neutrophils # (Manual) 9.6 TH/MM3 (1.8-7.7) Acetaminophen Level 8.4 MCG/ML (10.0-30.0) Blood Gas HCO3 10 mmol/L (22-26) Blood Gas Base Excess -16.2 mmol/L (-2-2) Arterial Blood pH 7.26 (7.380-7.420) Arterial Blood Partial 22 mmHg (38-42) Pressure CO2 Test 03/09/17 03/10/17 03/10/17 03/10/17 22:47 04:05 10:19 10:25 Red Blood Count 3.76 MIL/MM3 3.82 MIL/MM3 (4.00-5.30) (4.00-5.30) Platelet Count 140 TH/MM3 132 TH/MM3 (150-450) (150-450) Neutrophils (%) (Auto) 87.1 % 96.6 % (16.0-70.0) (16.0-70.0) Lymphocytes # (Auto) 0.9 TH/MM3 0.2 TH/MM3 (1.0-4.8) (1.0-4.8) Sodium Level 123 MEQ/L 126 MEQ/L (136-145) (136-145) Chloride Level 82 MEQ/L 85 MEQ/L (98-107) (98-107) Carbon Dioxide Level 14.8 MEQ/L (21.0-32.0) Anion Gap 26 MEQ/L (5-15) 20 MEQ/L (5-15) Blood Urea Nitrogen 43 MG/DL (7-18) 43 MG/DL (7-18) Creatinine 2.02 MG/DL 2.28 MG/DL (0.50-1.00) (0.50-1.00) Estimat Glomerular Filtration 26 ML/MIN (>89) 22 ML/MIN (>89) Rate Random Glucose 276 MG/DL 265 MG/DL (74-106) (74-106) Calcium Level 7.7 MG/DL 6.7 MG/DL (8.5-10.1) (8.5-10.1) Magnesium Level 1.3 MG/DL (1.5-2.5) Total Bilirubin 1.2 MG/DL 1.2 MG/DL (0.2-1.0) (0.2-1.0) Aspartate Amino Transf 3576 U/L 2404 U/L (AST/SGOT) (15-37) (15-37) Alanine Aminotransferase 737 U/L (10-53) 618 U/L (10-53) (ALT/SGPT) Alkaline Phosphatase 179 U/L 162 U/L (45-117) (45-117) Total Protein 4.6 GM/DL 4.6 GM/DL (6.4-8.2) (6.4-8.2) Albumin 2.5 GM/DL 2.4 GM/DL (3.4-5.0) (3.4-5.0) Lymphocytes (%) (Auto) 2.3 % (9.0-44.0) Neutrophils # (Auto) 9.8 TH/MM3 (1.8-7.7) Protein Corrected Calcium 8.0 MG/DL (8.5-10.1) Ammonia 122 MCMOL/L (11-32) Blood Gas Base Excess 2.6 mmol/L (-2-2) Arterial Blood pH 7.49 (7.380-7.420) Arterial Blood Partial 35 mmHg (38-42) Pressure CO2 Arterial Blood Partial 191 mmHg Pressure O2 (61-120) Arterial Blood Methemoglobin 2.1 % (0-2) Blood Gas Hemoglobin 11.4 G/DL (12.0-16.0) Serum Osmolality 303 MOSM/KG (275-295) Total Iron Binding Capacity 164 MCG/DL (250-450) Ferritin 15937 NG/ML (8-252) Imaging Last [address] 03/09/171406 Signed Impressions: Service Date/Time: Thursday, March 09, 2017 14:30 - CONCLUSION: Normal examination. Arturo Rivero Jr., MD Chest X-Ray 03/09/17 140 Signed Impressions: Service Date/Time: Thursday, March 09, 2017 16:16 - CONCLUSION: Possible right pneumothorax. Repeat chest x-ray is pending. Nitin Styles MD FACR Chest X-Ray 03/09/17 0000 Signed Impressions: Service Date/Time: Thursday, March 09, 2017 18:19 - CONCLUSION: 1. Right-sided chest tube with resolution of previous right pneumothorax. Subcutaneous air in right chest wall. Right central line, endotracheal tube and nasogastric tube in satisfactory position. Zac Matthews MD Chest X-Ray 03/09/17 0000 Signed Impressions: Service Date/Time: Thursday, March 09, 2017 16:37 - CONCLUSION: Moderate right pneumothorax with tension. Nitin Styles MD FACR Abdomen/Pelvis CT 03/09/17 0000 Signed Impressions: Service Date/Time: Thursday, March 09, 2017 14:36 - CONCLUSION: 1. Distended gallbladder with thick wall suspicious for at least chronic cholecystitis. Correlation is suggested. 2. Fatty replacement to the liver. Nitin Styles MD FACR Objective Remarks PE: Patient sedated with ET tube and NG tube in place. Chest tube in right anterior superior chest. Abdomen soft with some distension. Negative Velez's sign. Medications and IVs Current Medications Medications (Trade) Dose Ordered Sig/Rose Route PRN Reason Start Time Stop Time Status Last Admin Dose Admin IV Flush (NS Flush) 2 ml UNSCH PRN IV FLUSH FLUSH AFTER USING IV ACCESS 03/09/17 14:15 Lactulose (Lactulose Liq) 30 ml QID PO 03/09/17 18:00 03/10/17 09:24 Rifaximin 550 mg 550 mg BID PO 03/09/17 21:00 03/10/17 09:24 Pharmacy Profile Note (Vancomycin Consult Pharmacy) 0 ml @ 0 mls/hr UNSCH OTHER 03/09/17 16:00 Chlorhexidine Gluconate (Peridex 0.12% Liq) 15 ml BID@08,20 MT 03/09/17 20:00 03/10/17 09:22 Miscellaneous Information 1 Q361D XX 03/09/17 16:45 Chlorhexidine Gluconate (Chlorhexidine 2% Cloth) 3 pack Taper DAILY@04 TOP 03/10/17 04:00 03/06/18 03:59 03/10/17 04:00 Chlorhexidine Gluconate 3 pack 3 pack UNSCH PRN TOP HYGIENIC CARE 03/09/17 16:45 Propofol 100 ml @ 0 mls/hr TITRATE IV 03/09/17 16:45 03/10/17 09:28 Thiamine HCl 100 mg/Sodium Chloride 101 ml @ 101 mls/hr DAILY IV 03/09/17 19:00 03/11/17 23:59 03/10/17 09:24 Vancomycin HCl/ Sodium Chloride (Vancomycin Inj/ NS 250 ml Inj) 250 ml @ 250 mls/hr ONCE@1200 ONCE IV 03/10/17 12:00 03/10/17 12:59 03/10/17 11:57 Pantoprazole Sodium (Protonix Inj) 40 mg Q12H IV PUSH 03/10/17 11:00 03/10/17 11:56 Haloperidol Lactate (Haldol Inj) 5 mg Q4H PRN IV PUSH agitation 03/10/17 10:30 Melatonin (Melatonin) 5 mg HS PO 03/10/17 21:00 Olanzapine 5 mg 5 mg Q24H PRN PO if not asleep by 2300 03/10/17 23:00 Fentanyl Citrate (fentaNYL DRIP) 250 ml @ 0 mls/hr TITRATE IV 03/10/17 10:30 Thiamine HCl 100 mg 100 mg DAILY PO 03/14/17 09:00 Sodium Chloride 1,000 ml @ 150 mls/hr Q6H40M IV 03/10/17 10:30 03/10/17 10:48 Piperacillin Sod/ Tazobactam Sod (Zosyn 3.375 Gm Premix) 50 ml @ 100 mls/hr Q6H IV 03/10/17 15:00 Dextrose (D50w (Vial) Inj) 25 ml UNSCH PRN IV PUSH HYPOGLYCEMIA-SEE COMMENTS 03/10/17 10:30 Insulin Human Regular (NovoLIN R SUPPLEMENTAL SCALE) 1 Q6HR SQ 03/10/17 12:00 03/10/17 11:59 A/P Assessment and Plan A: Patient vitals are stable and labs show encouraging trend of liver and renal indicators. WBC has also decreased and is now normal. Clinical exam did not show evidence of acute cholecystitis. Patient is not in need of emergent surgery and is not a good surgical candidate with a [id number] class C designation for severe liver dysfunction. P: A more extensive history should be gathered and further evaluation done for cholecystitis when sedation is discontinued. Continue with prescribed therapy as indicated. The above is an exact scribed report of my findings and exam. Sreekanth Allen Mar 10, 2017 09:37 Toño Sargent MD Mar 16, 2017 11:38 100 mls/hr Q6H IV 03/10/17 15:00 Dextrose (D50w (Vial) Inj) 25 ml UNSCH PRN IV PUSH HYPOGLYCEMIA-SEE COMMENTS 03/10/17 10:30 Insulin Human Regular (NovoLIN R SUPPLEMENTAL SCALE) 1 Q6HR SQ 03/10/17 12:00 03/10/17 11:59 A/P Assessment and Plan A: Patient vitals are stable and labs show encouraging trend of liver and renal indicators. WBC has also decreased and is now normal. Clinical exam did not show evidence of acute cholecystitis. Patient is not in need of emergent surgery and is not a surgical candidate with a Sibob-Iwgfakbl-Vpob class C designation for severe liver dysfunction. P: A more extensive history should be gathered and further evaluation done for cholecystitis when sedation is removed. Continue with prescribed therapy as indicated. Sreekanth Allen M3 Mar 10, 2017 09:37
--- NOTE | 2017-03-10 09:51 | PD.CONS ---
HPI History of Present Illness This is a 51 year old female who is currently intubated and not able to provide any HPI, "therefore, most of HPI was obtained from EMR and nurse by bed side" who was brought to [facility] [address] by the family members after she went on a heavy drinking binge for 5 days after she was declined by Christopher Ying due to being too sick. On admission, patient was found hypotensive, tachycardic with sepsis, lactic acidosis, and hepatic encephalopathy. She also developed pneumothorax post central line, and there is a plan for chest tube. GI have been consulted for Coffee ground emesis in the NG tube and hepatic encephalopathy. A CT abdomen pelvis showed a dilated gallbladder concerning for at least chronic cholecystitis and fatty liver. Gen. surgery had been consulted for possible acute cholecystitis. Labs on admission revealed white count was 19.9 with left shift, H&H 13.5/41.8 BUN 38 creatinine of 1.76, AST was 4426. Ammonia level was 247 ALT 967 ALP 200 and lactic acid 3.9 Na 120. Patient was started on IV Protonix infusion octreotide. Also received vancomycin and Zosyn. Currently patient is still intubated, no signs of GI bleed reported. There is bile out put from NG tube, no hematochezia or melena reported by nurse. HH 12.4/35.2 today has dropped but stable and could be secondary to hydration (Samy Thurman) PFSH Past Medical History Alcohol dependance unable to obtain the rest Past Surgical History Unobtainable, patient is intubated (Samy Thurman) Coded Allergies: UNOBTAINABLE (Unverified , 03/09/17) Medications Current Medications Medications (Trade) Dose Ordered Sig/Rose Route Start Time Stop Time Status Last Admin IV Flush 2 ml 2 ml UNSCH PRN IV FLUSH 03/09/17 14:15 Pantoprazole Sodium 80 mg/ Sodium Chloride 100 ml @ 10 mls/hr Q10H IV 03/09/17 15:15 03/09/17 17:26 (Sodium Bicarbonate 8.4% Inj/NS 1000 ml Inj) 1,000 ml @ 0 mls/hr Q0M IV 03/09/17 14:34 03/09/17 17:27 (Lactulose Liq) 30 ml QID PO 03/09/17 18:00 03/09/17 21:02 Rifaximin 550 mg 550 mg BID PO 03/09/17 21:00 03/09/17 21:02 Pharmacy Profile Note 0 ml @ 0 mls/hr UNSCH OTHER 03/09/17 16:00 Piperacillin Sod/ Tazobactam Sod 100 ml @ 200 mls/hr Q6H IV 03/09/17 20:00 03/10/17 01:25 (Levophed-Dextrose Drip) 250 ml @ 0 mls/hr TITRATE IV 03/09/17 16:30 (Brethine Inj) 1 mg UNSCH PRN SQ 03/09/17 16:30 (fentaNYL INJ) 50 mcg Q1H PRN IV 03/09/17 16:45 (Peridex 0.12% Liq) 15 ml BID@08,20 MT 03/09/17 20:00 03/09/17 19:42 Miscellaneous Information 1 Q361D XX 03/09/17 16:45 (Chlorhexidine 2% Cloth) 3 pack Taper DAILY@04 TOP 03/10/17 04:00 03/06/18 03:59 03/10/17 04:00 Chlorhexidine Gluconate 3 pack 3 pack UNSCH PRN TOP 03/09/17 16:45 Propofol 100 ml @ 0 mls/hr TITRATE IV 03/09/17 16:45 03/10/17 04:35 Midazolam HCl 100 ml @ 0 mls/hr TITRATE IV 03/09/17 16:45 03/10/17 04:35 Thiamine HCl 100 mg/Sodium Chloride 101 ml @ 101 mls/hr DAILY IV 03/09/17 19:00 03/09/17 19:39 Octreotide Acetate 500 mcg/ Sodium Chloride 500.0 ml @ 50 mls/hr Q10H IV 03/09/17 19:15 03/10/17 04:35 (Sodium Bicarbonate 8.4% Inj/1/2 NS 1000 ml Inj) 1,150 ml @ 150 mls/hr Q7H40M IV 03/09/17 20:23 03/10/17 04:35 Family History Unobtainable Social History History of alcohol dependence other history is unknown (Samy Thurman) Review of Systems ROS Unobtainable, patient is intubated (Samy Thurman) GI Exam Vitals I&O Vital Signs Date Time Temp Pulse Resp B/P Pulse Ox O2 Delivery O2 Flow Rate FiO2 03/10/17 07:32 100 40 03/10/17 06:00 104 03/10/17 06:00 104 19 128/74 100 03/10/17 05:09 100 40 03/10/17 05:01 107 20 127/74 100 03/10/17 04:00 98.7 109 20 130/68 100 03/10/17 04:00 40 03/10/17 04:00 109 03/10/17 03:00 105 20 132/71 100 03/10/17 02:00 104 24 133/70 100 03/10/17 02:00 104 03/10/17 01:00 109 21 136/71 100 03/10/17 00:33 100 40 03/10/17 00:00 109 03/10/17 00:00 100.0 109 23 144/73 100 03/10/17 00:00 40 03/09/17 23:00 108 26 146/74 100 03/09/17 22:00 110 03/09/17 22:00 110 25 135/63 100 03/09/17 21:59 100 40 03/09/17 21:00 109 24 136/66 100 03/09/17 20:37 100 40 03/09/17 20:30 111 26 137/69 100 03/09/17 20:00 40 03/09/17 20:00 99.3 115 28 138/65 100 03/09/17 20:00 115 03/09/17 19:30 115 27 128/63 100 03/09/17 19:00 113 26 129/64 100 03/09/17 18:16 113 140/97 100 Ventilator 03/09/17 18:00 96 40 03/09/17 18:00 100 100 03/09/17 16:48 114 152/86 100 Ventilator 03/09/17 15:18 100 100 03/09/17 14:12 80/48 03/09/17 13:58 94 18 174/115 97 03/09/17 13:50 92 16 72/42 100 Room Air I/O 03/09/17 03/09/17 03/09/17 03/10/17 03/10/17 03/10/17 07:00 15:00 23:00 07:00 15:00 23:00 Intake Total 1110 ml 2215 ml Output Total 768 ml 1272 ml Balance 342 ml 943 ml Intake IV Total 1110 ml 2055 ml Tube Irrigant 160 ml Output Urine Total 700 ml 700 ml Gastric Drainage Total 50 ml 500 ml Chest Tube Drainage Total 18 ml 72 ml Imaging Last Impressions Head CT 03/09/17 1407 Signed Impressions: Service Date/Time: Thursday, March 09, 2017 14:30 - CONCLUSION: Normal examination. Arturo Rivero Jr., MD Chest X-Ray 03/09/17 1407 Signed Impressions: Service Date/Time: Thursday, March 09, 2017 16:16 - CONCLUSION: Possible right pneumothorax. Repeat chest x-ray is pending. Nitin Styles MD FACR Abdomen/Pelvis CT 03/09/17 0000 Signed Impressions: Service Date/Time: Thursday, March 09, 2017 14:36 - CONCLUSION: 1. Distended gallbladder with thick wall suspicious for at least chronic cholecystitis. Correlation is suggested. 2. Fatty replacement to the liver. Nitin Styles MD FACR Laboratory Test 03/09/17 03/09/17 03/09/17 03/09/17 14:15 14:18 14:19 15:25 Blood Gas Puncture Site RT RADIAL Blood Gas Patient Temperature 98.6 Blood Gas HCO3 6 mmol/L Blood Gas Base Excess -21.9 mmol/L Blood Gas Oxygen Saturation 96 % Arterial Blood pH 7.14 Arterial Blood Partial 18 mmHg Pressure CO2 Arterial Blood Partial 125 mmHG Pressure O2 Arterial Blood Oxygen Content 16.5 Vol % Arterial Blood 0.7 % Carboxyhemoglobin Arterial Blood Methemoglobin 1.1 % Blood Gas Hemoglobin 12.1 G/DL Oxygen Delivery Device ROOM AIR Blood Gas Inspired Oxygen 21 % Ammonia 247 MCMOL/L White Blood Count 19.9 TH/MM3 Red Blood Count 4.21 MIL/MM3 Hemoglobin 13.5 GM/DL Hematocrit 41.8 % Mean Corpuscular Volume 99.3 FL Mean Corpuscular Hemoglobin 32.1 PG Mean Corpuscular Hemoglobin 32.3 % Concent Red Cell Distribution Width 13.0 % Platelet Count 220 TH/MM3 Mean Platelet Volume 7.7 FL Neutrophils (%) (Auto) 82.4 % Lymphocytes (%) (Auto) 14.2 % Monocytes (%) (Auto) 3.0 % Eosinophils (%) (Auto) 0.1 % Basophils (%) (Auto) 0.3 % Neutrophils # (Auto) 16.4 TH/MM3 Lymphocytes # (Auto) 2.8 TH/MM3 Monocytes # (Auto) 0.6 TH/MM3 Eosinophils # (Auto) 0.0 TH/MM3 Basophils # (Auto) 0.1 TH/MM3 CBC Comment AUTO DIFF Differential Total Cells 100 Counted Neutrophils % (Manual) 64 % Band Neutrophils % 16 % Lymphocytes % 17 % Monocytes % 3 % Neutrophils # (Manual) 15.9 TH/MM3 Differential Comment FINAL DIFF MANUAL Toxic Vacuolation PRESENT Platelet Estimate NORMAL Platelet Morphology Comment NORMAL Stomatocytes 1+ [place] Bodies PRESENT Prothrombin Time 11.0 SEC Prothromb Time International 1.0 RATIO Ratio Urine Color YELLOW Urine Turbidity CLOUDY Urine pH 5.5 Urine Specific [place] 1.013 Urine Protein 100 mg/dL Urine Glucose (UA) NEG mg/dL Urine Ketones TRACE mg/dL Urine Occult Blood MOD Urine Nitrite NEG Urine Bilirubin NEG Urine Urobilinogen LESS THAN 2.0 MG/DL Urine Leukocyte Esterase NEG Urine WBC 1 /hpf Urine Squamous Epithelial 2 /hpf Cells Urine Amorphous Sediment FEW Urine Hyaline Casts 24 /lpf Microscopic Urinalysis Comment CATH-CULT NOT IND Urine Opiates Screen NEG Urine Barbiturates Screen NEG Urine Amphetamines Screen NEG Urine Benzodiazepines Screen NEG Urine Cocaine Screen NEG Urine Cannabinoids Screen NEG Test 03/09/17 03/09/17 03/09/17 03/09/17 16:10 16:29 18:00 18:36 Sodium Level 120 MEQ/L Potassium Level 4.7 MEQ/L Chloride Level 81 MEQ/L Carbon Dioxide Level 9.5 MEQ/L Anion Gap 30 MEQ/L Blood Urea Nitrogen 38 MG/DL Creatinine 1.76 MG/DL Estimat Glomerular Filtration 30 ML/MIN Rate Random Glucose 214 MG/DL Calcium Level 5.8 MG/DL Protein Corrected Calcium 6.9 MG/DL Magnesium Level 1.1 MG/DL Total Bilirubin 1.2 MG/DL Aspartate Amino Transf 4426 U/L (AST/SGOT) Alanine Aminotransferase 967 U/L (ALT/SGPT) Alkaline Phosphatase 200 U/L Total Creatine Kinase 637 U/L Creatine Kinase MB 10.2 NG/ML Creatine Kinase MB % 1.6 % Troponin I 0.14 NG/ML Total Protein 4.6 GM/DL Albumin 2.6 GM/DL Thyroid Stimulating Hormone 1.460 uIU/ML 3rd Gen Acetaminophen Level 10.2 MCG/ML 8.4 MCG/ML Ethyl Alcohol Level LESS THAN 3 MG/DL Lactic Acid Level 3.9 mmol/L Nasal Screen MRSA (PCR) MRSA NOT DETECTED White Blood Count 11.7 TH/MM3 Red Blood Count 3.70 MIL/MM3 Hemoglobin 12.0 GM/DL Hematocrit 34.8 % Mean Corpuscular Volume 94.1 FL Mean Corpuscular Hemoglobin 32.5 PG Mean Corpuscular Hemoglobin 34.6 % Concent Red Cell Distribution Width 12.4 % Platelet Count 155 TH/MM3 Mean Platelet Volume 7.1 FL Neutrophils (%) (Auto) 83.0 % Lymphocytes (%) (Auto) 14.8 % Monocytes (%) (Auto) 1.2 % Eosinophils (%) (Auto) 0.6 % Basophils (%) (Auto) 0.4 % Neutrophils # (Auto) 9.7 TH/MM3 Lymphocytes # (Auto) 1.7 TH/MM3 Monocytes # (Auto) 0.1 TH/MM3 Eosinophils # (Auto) 0.1 TH/MM3 Basophils # (Auto) 0.0 TH/MM3 CBC Comment AUTO DIFF Differential Total Cells 100 Counted Neutrophils % (Manual) 65 % Band Neutrophils % 16 % Lymphocytes % 17 % Monocytes % 1 % Neutrophils # (Manual) 9.6 TH/MM3 Metamyelocytes 1 % Differential Comment FINAL DIFF MANUAL Platelet Estimate NORMAL Platelet Morphology Comment NORMAL Salicylates Level 3.2 MG/DL Blood Type O POSITIVE Antibody Screen NEGATIVE Blood Bank Comment Test 03/09/17 03/09/17 03/09/17 03/10/17 19:20 19:56 22:47 02:01 Blood Gas Puncture Site RT BRACHIAL Blood Gas Patient Temperature 98.6 Blood Gas HCO3 10 mmol/L Blood Gas Base Excess -16.2 mmol/L Blood Gas Oxygen Saturation 95 % Arterial Blood pH 7.26 Arterial Blood Partial 22 mmHg Pressure CO2 Arterial Blood Partial 115 mmHg Pressure O2 Arterial Blood Oxygen Content 16.3 Vol % Arterial Blood 1.3 % Carboxyhemoglobin Arterial Blood Methemoglobin 2.0 % Blood Gas Hemoglobin 12.1 G/DL Oxygen Delivery Device VENTILATOR Blood Gas Ventilator Setting AC16/450/5PEEP Blood Gas Inspired Oxygen 40 % Lactic Acid Level 1.3 mmol/L 0.7 mmol/L White Blood Count 7.6 TH/MM3 Red Blood Count 3.76 MIL/MM3 Hemoglobin 12.1 GM/DL Hematocrit 35.4 % Mean Corpuscular Volume 94.2 FL Mean Corpuscular Hemoglobin 32.2 PG Mean Corpuscular Hemoglobin 34.2 % Concent Red Cell Distribution Width 12.6 % Platelet Count 140 TH/MM3 Mean Platelet Volume 7.6 FL Neutrophils (%) (Auto) 87.1 % Lymphocytes (%) (Auto) 12.2 % Monocytes (%) (Auto) 0.6 % Eosinophils (%) (Auto) 0.0 % Basophils (%) (Auto) 0.1 % Neutrophils # (Auto) 6.6 TH/MM3 Lymphocytes # (Auto) 0.9 TH/MM3 Monocytes # (Auto) 0.0 TH/MM3 Eosinophils # (Auto) 0.0 TH/MM3 Basophils # (Auto) 0.0 TH/MM3 CBC Comment DIFF FINAL Differential Comment Sodium Level 123 MEQ/L Potassium Level 4.4 MEQ/L Chloride Level 82 MEQ/L Carbon Dioxide Level 14.8 MEQ/L Anion Gap 26 MEQ/L Blood Urea Nitrogen 43 MG/DL Creatinine 2.02 MG/DL Estimat Glomerular Filtration 26 ML/MIN Rate Random Glucose 276 MG/DL Calcium Level 7.7 MG/DL Magnesium Level 1.3 MG/DL Total Bilirubin 1.2 MG/DL Aspartate Amino Transf 3576 U/L (AST/SGOT) Alanine Aminotransferase 737 U/L (ALT/SGPT) Alkaline Phosphatase 179 U/L Total Protein 4.6 GM/DL Albumin 2.5 GM/DL Test 03/10/17 04:05 White Blood Count 10.2 TH/MM3 Red Blood Count 3.82 MIL/MM3 Hemoglobin 12.4 GM/DL Hematocrit 35.2 % Mean Corpuscular Volume 92.2 FL Mean Corpuscular Hemoglobin 32.4 PG Mean Corpuscular Hemoglobin 35.2 % Concent Red Cell Distribution Width 12.9 % Platelet Count 132 TH/MM3 Mean Platelet Volume 7.6 FL Neutrophils (%) (Auto) 96.6 % Lymphocytes (%) (Auto) 2.3 % Monocytes (%) (Auto) 0.9 % Eosinophils (%) (Auto) 0.0 % Basophils (%) (Auto) 0.2 % Neutrophils # (Auto) 9.8 TH/MM3 Lymphocytes # (Auto) 0.2 TH/MM3 Monocytes # (Auto) 0.1 TH/MM3 Eosinophils # (Auto) 0.0 TH/MM3 Basophils # (Auto) 0.0 TH/MM3 CBC Comment DIFF FINAL Differential Comment Sodium Level 126 MEQ/L Potassium Level 4.1 MEQ/L Chloride Level 85 MEQ/L Carbon Dioxide Level 21.3 MEQ/L Anion Gap 20 MEQ/L Blood Urea Nitrogen 43 MG/DL Creatinine 2.28 MG/DL Estimat Glomerular Filtration 22 ML/MIN Rate Random Glucose 265 MG/DL Calcium Level 6.7 MG/DL Protein Corrected Calcium 8.0 MG/DL Total Bilirubin 1.2 MG/DL Aspartate Amino Transf 2404 U/L (AST/SGOT) Alanine Aminotransferase 618 U/L (ALT/SGPT) Alkaline Phosphatase 162 U/L Ammonia 122 MCMOL/L Total Protein 4.6 GM/DL Albumin 2.4 GM/DL Date/Time Procedure Status Source Growth 03/09/17 15:35 Aerobic Blood Culture Received Blood Peripheral Pending 03/09/17 15:35 Anaerobic Blood Culture Received Blood Peripheral Pending Physical Examination HEENT: normocephalic; atraumatic; no jaundice. NECK: Neck is supple, no JVD, no lymphadenopathy. CHEST: Chest is clear to auscultation and percussion. CARDIAC: Regular rate and rhythm with no murmur gallop or rubs. ABDOMEN: Soft, nondistended, nontender; no hepatosplenomegaly; bowel sounds are present in all four quadrants. EXTREMITIES: No clubbing, cyanosis, or edema. SKIN: Normal; no rash; no jaundice. 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 upper GI bleed- consulted for Coffee ground emesis in the NG tube and hepatic encephalopathy. There is bile out put from NG tube, no hematochezia or melena reported by nurse. H&H 13.5/41 --->12.4/35.2 today has dropped but stable and could be secondary to hydration. Patient was started on IV Protonix infusion octreotide. - Hepatic encephalopathy- Improving On admission, ammonia was 247, started on lactulose and Xifaxan , today levels are 122 - Elevated LFTs- Trending down. likely shocked liver due to hypotension, but could be combined with underlying liver dz and alcohol abuse, toxicology negative On admission AST was 4426 ALT 967 ALP 200 - Cholecystitis- CT abdomen pelvis showed a dilated gallbladder concerning for at least chronic Cholecystitis and fatty liver. Gen. surgery had been consulted for possible acute cholecystitis. This is pending - Respiratory failure/ septic shock- intubated per [facility] - Leukocytosis- improving vancomycin and Zosyn - Alcohol abuse, hx of abisai drinking X 5 days, was declined by [facility] Ying due to being too sick - Electrolyte abnormalities- per CCM - Acute renal failure- secondary to above Plan: - NPO - KOBI, ASMA, AMA, ceruloplasmin, alpha- 1 antitrypsin deficiency, celiac panel, iron studies, hepatitis panel, AFP - Monitor labs - EGD - Await GS eval. - Cont. lactulose, Xifaxan, abx - Cont. PPI - LFTs, ammonia, Pt/inr in the am - if no signs of bleeding, can DC octreotide - Monitor - Notify Gi for active bleeding - Alcohol cessation - Patient was seen and examined by Dr. mancuso and myself and this note is written on his behalf. (Samy Thurman) Physician Comments Patient is seen and examined Agree with above Continue with current supportive care Monitor labs Rectal electrolytes Proceed with EGD (Joseph Mancuso MD) Samy Thurman Mar 10, 2017 09:50 Joseph Mancuso MD Mar 10, 2017 12:33
[2017-03-10 10:25] LABS: BLOOD GAS BASE EXCESS 2.6 mmol/L (-2-2); BLOOD GAS CARBOXYHEMOGLOBIN 1.6 % (0-4); BLOOD GAS HCO3 26 mmol/L (22-26); BLOOD GAS METHEMOGLOBIN 2.1 % (0-2); BLOOD GAS O2 HGB SATURATION 96 % (90-100); BLOOD GAS OXYGEN CONTENT 15.8 Vol % (12.0-20.0); BLOOD GAS PCO2 35 mmHg (38-42); BLOOD GAS PO2 191 mmHg (61-120); BLOOD GAS TOTAL HGB 11.4 G/DL (12.0-16.0); CRITICAL VALUE NO; DRAW SITE RT RADIAL; FIO2 40 %; NUMBER OF ARTERIAL PUNCTURES 1; OXYGEN DEVICE VENTILATOR; STAT NO; TEMP CORR TO 98.6; ULNAR PULSE PRESENT; VENT SETTINGS CPAP 5/10PS
[2017-03-10] MEDS ORDERED: HALOPERIDOL LACTATE 5 MG/ML AMP IV PUSH PRN (10:30)
[2017-03-10] MEDS ORDERED: fentaNYL DRIP 250 ML IV SCH (10:30)
[2017-03-10] MEDS ORDERED: DEXTROSE 50% IN WATER 50 ML VIAL(D50) IV PUSH PRN (10:30)
--- NOTE | 2017-03-10 10:40 | HHI.CCPN ---
Subjective Remarks/Hospital Course Hospital Course: Patient is a 51-year-old female with past medical history of alcohol dependence , no other known history was brought in by the family members after she went on a heavy drinking binge for 5 days. Family initially took the patient to [facility] but they refused admit as a patient was too sick. No other history is available as the patient is intubated and there is no bystander. Initial vitals showed a blood pressure 72/42 patient was tachycardic. She received 3 L normal saline IV fluid bolus. ABG showed pH of 7.14 with a base excess of -22. Patient also had altered mental status. Patient was intubated due to severe metabolic acidosis and altered mental status. Lab work came back abnormal, white count was 19.9 with left shift, BUN 38 creatinine of 1.76, protein corrected calcium was 6.9 bicarbonate was 9.5 goal is to 14 AST was 4426. Ammonia level was 247. ALT and lactic acid are pending at this time. A CT abdomen pelvis showed a dilated gallbladder concerning for at least chronic cholecystitis. Gen. surgery had been consulted for possible acute cholecystitis I evaluated the patient in the ED. Hemodynamically improved after 3 L boluses, patient remains confused on the ventilator. Patient was noted to have coffee- ground material from NG tube. IV Protonix infusion started and I have added octreotide. I have discussed with Dr. Nelson, patient will undergo EGD tomorrow a.m. patient received vancomycin and Zosyn in the ED which will be continued. General surgery consulted with Dr. Dumont pending at this time. I have also requested Tylenol and salicylate levels, Liver enzymes are extremely elevated which could be from ischemic hepatitis. It was also noted that patient had pneumothorax after central line placement by the ER physician. I have discussed this with Dr. Felix and she will place a chest tube. Lactate pending at this time Subjective: 03/10: remains intubated and sedated. acidosis persists, although is slightly better. serum sodium also slightly improved. no more evidence of acute active GI bleed and hgb stable. Objective Vital Signs Date Time Temp Pulse Resp B/P Pulse Ox O2 Delivery O2 Flow Rate FiO2 03/10/17 10:04 40 03/10/17 07:32 100 03/10/17 06:00 104 03/10/17 06:00 19 128/74 03/10/17 04:00 98.7 03/09/17 18:16 Ventilator Intake and Output 03/09/17 03/09/17 03/10/17 08:00 16:00 00:00 Intake Total 1110 ml Output Total 768 ml Balance 342 ml Result Diagram: 03/10/17 0405 03/10/17 0405 Other Results Laboratory Tests Test 03/09/17 03/09/17 14:15 19:20 Blood Gas Puncture Site RT RADIAL RT BRACHIAL Blood Gas Patient Temperature 98.6 98.6 Blood Gas HCO3 6 mmol/L 10 mmol/L (22-26) (22-26) Blood Gas Base Excess -21.9 mmol/L -16.2 mmol/L (-2-2) (-2-2) Blood Gas Oxygen Saturation 96 % (90-100) 95 % (90-100) Arterial Blood pH 7.14 7.26 (7.380-7.420) (7.380-7.420) Arterial Blood Partial 18 mmHg (38-42) 22 mmHg (38-42) Pressure CO2 Arterial Blood Partial 125 mmHG 115 mmHg Pressure O2 (61-120) (61-120) Arterial Blood Oxygen Content 16.5 Vol % 16.3 Vol % (12.0-20.0) (12.0-20.0) Arterial Blood 0.7 % (0-4) 1.3 % (0-4) Carboxyhemoglobin Arterial Blood Methemoglobin 1.1 % (0-2) 2.0 % (0-2) Blood Gas Hemoglobin 12.1 G/DL 12.1 G/DL (12.0-16.0) (12.0-16.0) Oxygen Delivery Device ROOM AIR VENTILATOR Blood Gas Inspired Oxygen 21 % 40 % Blood Gas Ventilator Setting AC16/450/5PEEP Imaging CT abdomen pelvis shows thick dilated gallbladder concerning for acute or chronic cholecystitis Objective Remarks GENERAL: 51-year-old white female patient who is intubated sedated with propofol SKIN: Skin warm and dry HEAD: Atraumatic. Normocephalic. EYES: Pupils equal, reactive. No scleral icterus. ENT: Orotracheally intubated. Oral mucosa dry NECK: Trachea midline. No JVD. CARDIOVASCULAR: Tachycardic and regular. No murmurs RESPIRATORY: ACV. Breath sounds equal bilaterally. No wheezes or crackles GASTROINTESTINAL: Abdomen soft, patient has right upper quadrant and epigastric tenderness. No rebound MUSCULOSKELETAL: No obvious deformities. No clubbing. No cyanosis. No edema. NEUROLOGICAL: Intubated sedated. Opens eyes to stimulation. Moves all extremities but does not follow commands A/P Assessment and Plan NEURO: Hepatic encephalopathy Alcohol dependence Agitated Delirium -d/c versed -add fentanyl to propofol for RASS goal -2 -add haldol 5mg iv q4h prn for agitation. -initial ammonia 247, repeat today 122. continue daily ammonia levels. -continue lactulose 30 mL to 6 hours -continue rifaximin 550 mg by mouth po q12 -Thiamine 100 mg daily IV x 3 days then change to PO. -Tylenol and ASA levels normal. Urine drug screen is negative RESP: Acute hypoxic respiratory failure Severe metabolic acidosis- resolved. Iatrogenic right pneumothorax -Intubated for airway protection and significant metabolic acidosis -vent bundle -Continue ACV 16/450/5 and FiO2 40% -DuoNeb every 6 hours and when necessary -d/c bicarb infusion. -Right pneumothorax secondary to ER physician placing a right central line, s/p chest tube placement. no air leak today. place to water seal and get 4h post cxr. -am CXR CV: Shock- likely not septic, no infectious etiology identified. Lactic acidosis- resolving. Likely severe dehydration -stop bicarb infusion -start NS @ 150cc/hr. -lactate downtrending. GI: Hyperammonemia Upper GI bleed Acute hepatitis with very elevated Transaminases -no more evidence of active bleeding. stop protonix and octreotide drips -start BID IV PPI. -General surgery and gastroenterology following. -no active intervention for gallbladder at this time, felt to be more likely secondary to acute hepatitis. -Broad-spectrum antibiotics -Hepatitis discriminant function is not elevated, no indication for steroids -D/W with Dr. Nelson, more likely to be ischemic hepatitis than alcohol induced. -send hepatitis panel. -check serum Osm and calculated osmolar gap. Ethylene glycol could be in the differential diagnosis. Urine without crystals on admission u/a. : Acute kidney injury Severe Dehydration -Aggressive fluid resuscitation as above -Monitor renal function closely. Burden catheter ID: Possible cholecystitis -initial hemodynamics concerning for shock, however the only suspected source would be gallbladder, and in discussions with GI, gen surg, and radiology, likely not acute infectious cholecystitis. acute hepatitis could be a cause, however septic shock at this point is much less likely. -IV vancomycin pharmacy to dose, Zosyn renally adjusted -F/u on Blood urine and sputum cultures HEME: -Monitor CBC, CMP, Coags -INR normal ENDO: Hypocalcemia Hyponatremia Hyperglycemia -Electrolyte replacement per protocol -start SSI, med scale, q6h PROPH: -Bilateral lower extremity SCDs. IV BID PPI. hold on starting chemical DVT prophylaxis at least for another 24h given prior concern for GI bleed. LINES: -Right subclavian central line placed by ED physician 03/09 -Burden CC time 77 minutes, exclusive of separately billable procedures. Patient is critically ill with guarded prognosis due to septic shock and multiorgan failure namely respiratory failure, shock, liver failure, hyperammonemia and renal failure with severe hepatic encephalopathy Aashish Jones MD Mar 10, 2017 10:40
[2017-03-10] MEDS: SODIUM CHLOR 0.9% 1000 ML INJ 1,000 ML IV SCH ×3 (10:48→23:04)
[2017-03-10 11:21] LABS: TRANSFERRIN IRON PROFILE 117 MG/DL (200-360)
[2017-03-10 11:26] LABS: FERRITIN 13571 NG/ML (8-252)
[2017-03-10] MEDS: PANTOPRAZOLE SODIUM 40 MG VIAL IV PUSH SCH ×2 (11:56→23:03)
[2017-03-10] MEDS: INSULIN NovoLIN REGULAR SUPPLEMENTAL SCALE SQ SCH ×2 (11:59→17:24)
[2017-03-10] MEDS ORDERED: VANCOMYCIN 1,000 MG/NS 250 ML IV ONE ×2 (12:00)
--- NOTE | 2017-03-10 12:35 | PD.PROCEDR ---
GI Procedure REFERRING PHYSICIAN Dr. Mcfadden PROCEDURE PERFORMED EGD INDICATION FOR PROCEDURE Coffee-ground emesis PROCEDURE: The procedure, risks and benefits were discussed with Ms. Kumar and informed consent was obtained. Anesthesia sedated her with Diprivan. She was placed in the left lateral decubitus position. EGD: The Pentax videoscope was introduced through the oropharynx and advanced to the second portion of the duodenum under direct visualization. Retroflexion was performed in the stomach. FINDINGS: The esophagus there was distal esophageal mucosal erythema suggestive of reflux esophagitis no ulcerations no erosions no varices The stomach there was punctate and patchy erythema in the antrum but no ulcerations or erosions no blood or bleeding retroflexion was unremarkable no gastric varices The duodenum this was normal ESTIMATED BLOOD LOSS: None SPECIMENS REMOVED: None COMPLICATIONS: None IMPRESSION: Esophagitis Gastritis PLAN: Continue PPI Continue present supportive care Joseph Nelson MD Mar 10, 2017 12:35
[2017-03-10 14:37] LABS: BACTERIA, URINE RARE /hpf; BLOOD, URINE MOD (NEG); GLUCOSE,URINE NEG (NEG); KETONE, URINE NEG (NEG); MUCUS URINE FEW /lpf (OCC); NITRITE,URINE NEG (NEG); SQUAMOUS EPITHELIAL CELL URINE <1 /hpf (0-5); URINE COLOR LIGHT-YELLOW (YELLW/STRAW)
[2017-03-10] MEDS: PIPERACIL-TAZO 3.375 GM PREMIX 50 ML IV SCH ×2 (14:38→21:15)
--- NOTE | 2017-03-10 15:38 | RADRPT ---
EXAM DATE/TIME: 03/10/2017 15:03 [facility] COMPARISON: CHEST SINGLE AP, March 09, 2017, 18:19. INDICATIONS : Evaluate for pneumothorax. Status post 4 hour water seal on chest tube. MEDICAL HISTORY : Moderate right pneumothorax with tension. SURGICAL HISTORY : None. ENCOUNTER: Subsequent ACUITY: 2 days PAIN SCORE: Non-responsive. LOCATION: chest FINDINGS: Right chest tube remains in place, tip at the apex. Tiny amount of air seen in the adjacent pleural s pace. No large pneumothorax. Chest wall emphysema decreased. No infiltrate or effusion. Heart size stable, normal. Endotracheal tube tip is about 4 cm above the nancy. Nasogastric tube courses into the stomach. Ther e is a right subclavian central venous catheter with tip in the right atrium. CONCLUSION: Miniscule right apical pneumothorax. Chest tube remains in place. Unchanged lines and tubes. Bogdan López MD on March 10, 2017 at 15:34 Board Certified Radiologist. This report was verified electronically.
--- NOTE | 2017-03-10 17:02 | MB ---
cc: ALEXA ROJO M.D. DATE OF CONSULTATION 03/10/2017 REASON FOR CONSULTATION Cholecystitis. HISTORY OF PRESENT ILLNESS The patient is a 51-year-old female who had a past medical history of alcohol dependence who was brought in by family members after a 5-day binge of drinking. The patient was septic, hypotensive and tachycardia and was given volume bolus as well as currently on a bicarbonate drip for a severe acidosis with a base deficit of 22. The patient had CT of the abdomen and pelvis which showed a dilated gallbladder concerning for at least a chronic cholecystitis. The patient had a central line placed with a pneumothorax requiring chest tube placement. Other drug screen is negative on the patient at the time. The patient's base deficit is now corrected. PAST MEDICAL HISTORY Unknown except for history of alcohol dependence. The remaining history is unable to be obtained as the patient is intubated. PHYSICAL EXAMINATION GENERAL: Physical exam reveals a patient who is intubated and sedated. She is not any pressors. VITAL SIGNS: BP 134/80, pulse 103, respirations 18, temperature 99.0. The patient is now on 35% FIO2 which has been decreased from 40% earlier this morning. She is 100% saturation by pulse oximetry. CHEST: Chest is clear to auscultation. CARDIOVASCULAR: Cardiac exam reveals tachycardia without murmurs. ABDOMEN: Abdomen is soft and nontender to deep palpation. There is a negative Velez sign. EXTREMITIES: Pulses are present. NEURO: The patient is currently sedated and not responsive. Pupils are reactive, however. LABORATORY DATA Laboratory values demonstrate WBCs of 10.2, platelets are 132,000. Chemistries demonstrate a lactate level of 1.50, serum osmolality is 303, BUN and creatinine are 43 and 2.28. Liver function tests demonstrate a bilirubin of 1.2, AST of 2404, ALT of 618 and alkaline phosphatase of 162, ammonia level was 122. Coagulation is normal with INR of 1.0. Toxicology screen is negative. Immunology is pending for KOBI screen. Hepatitis screen is pending as well. Urinalysis demonstrates negative leukocyte esterase and 1 WBC, [address] scan demonstrates a distended gallbladder with a thick wall suspicious for at least chronic cholecystitis. Head CT demonstrates a normal examination. ASSESSMENT Severe metabolic derangement with sepsis, currently being corrected. No acute signs and symptoms at this time, however, the patient is sedated. Given the fact the patient does not look like she has cholangitis or cholecystitis with sepsis, would hold on any intervention at this time. We will follow with you and after the patient is extubated, reassess. She is not a candidate for surgery at this time unless she deteriorates. Cholecystostomy tube would be the best option currently given her health status. However, we will follow with you. MD MATTHEW Melvin/EO /1:09 PM /4:53 PM
[2017-03-10] MEDS: MELATONIN 5 MG TAB PO SCH (21:15)
[2017-03-11] VITALS (16 sets, daily range): BP systolic 120–144; BP diastolic 69–89; PULSE 96–115; RESP 16–33; TEMP 97.9–99.7; O2SAT 96–100
[2017-03-11] MEDS: PIPERACIL-TAZO 3.375 GM PREMIX 50 ML IV SCH ×4 (03:00→20:43)
[2017-03-11] MEDS: RESP: ALBUTEROL 2.5 MG/IPRATROPIUM 0.5 MG NEB (SCH) NEB ×4 (03:46→21:04)
[2017-03-11] MEDS: CHLORHEXIDINE GLUCONATE 2 % 1 PACK (2 CLOTHS) TOP SCH (04:00)
[2017-03-11 04:56] LABS: HEMATOCRIT 24.8 % (35.0-46.0); MEAN CELL VOLUME 90.4 FL (80.0-100.0); MEAN CORPUSCULAR HEMOGLOBIN 32.4 PG (27.0-34.0); MEAN CORPUSCULAR HGB CONC 35.8 % (32.0-36.0); PLATELET COUNT 72 TH/MM3 (150-450); RED BLOOD COUNT 2.74 MIL/MM3 (4.00-5.30); RED CELL DISTRIBUTION WIDTH 12.9 % (11.6-17.2); WHITE BLOOD COUNT 8.2 TH/MM3 (4.0-11.0)
[2017-03-11 05:00] LABS: APTT (PATIENT) 27.2 SEC (24.3-30.1); INTERNATIONAL NORMALIZED RATIO 0.9 RATIO; PROTHROMBIN TIME - PATIENT 10.4 SEC (9.8-11.6); REVIEW FLAG FINAL
[2017-03-11] MEDS: INSULIN NovoLIN REGULAR SUPPLEMENTAL SCALE SQ SCH ×3 (06:00→17:20)
[2017-03-11] MEDS: PROPOFOL 1000 MG/100 ML INJ 100 ML IV SCH (06:30)
[2017-03-11 07:00] LABS: BICARBONATE 30.2 MEQ/L (21.0-32.0); CALCIUM-PROTEIN CORRECTED 8.2 MG/DL (8.5-10.1); MAGNESIUM 1.7 MG/DL (1.5-2.5); TOTAL BILIRUBIN ADULT 0.6 MG/DL (0.2-1.0)
[2017-03-11 07:10] LABS: POTASSIUM 2.7 MEQ/L (3.5-5.1)
[2017-03-11] MEDS ORDERED: POTASSIUM CHLORIDE 25 MEQ EFFERVESCENT TAB PO ONE (07:45)
[2017-03-11] MEDS ORDERED: POTASSIUM CHLOR 40 MEQ PREMIX 100 ML IV ONE (07:45)
[2017-03-11] MEDS: RIFAXIMIN 550 MG TAB PO SCH ×2 (08:10→20:43)
--- NOTE | 2017-03-11 08:10 | HHI.CCPN ---
Subjective Remarks/Hospital Course Hospital Course: Patient is a 51-year-old female with past medical history of alcohol dependence , no other known history was brought in by the family members after she went on a heavy drinking binge for 5 days. Family initially took the patient to [facility] but they refused admit as a patient was too sick. No other history is available as the patient is intubated and there is no bystander. Initial vitals showed a blood pressure 72/42 patient was tachycardic. She received 3 L normal saline IV fluid bolus. ABG showed pH of 7.14 with a base excess of -22. Patient also had altered mental status. Patient was intubated due to severe metabolic acidosis and altered mental status. Lab work came back abnormal, white count was 19.9 with left shift, BUN 38 creatinine of 1.76, protein corrected calcium was 6.9 bicarbonate was 9.5 goal is to 14 AST was 4426. Ammonia level was 247. ALT and lactic acid are pending at this time. A CT abdomen pelvis showed a dilated gallbladder concerning for at least chronic cholecystitis. Gen. surgery had been consulted for possible acute cholecystitis I evaluated the patient in the ED. Hemodynamically improved after 3 L boluses, patient remains confused on the ventilator. Patient was noted to have coffee- ground material from NG tube. IV Protonix infusion started and I have added octreotide. I have discussed with Dr. Nelson, patient will undergo EGD tomorrow a.m. patient received vancomycin and Zosyn in the ED which will be continued. General surgery consulted with Dr. Dumont pending at this time. I have also requested Tylenol and salicylate levels, Liver enzymes are extremely elevated which could be from ischemic hepatitis. It was also noted that patient had pneumothorax after central line placement by the ER physician. I have discussed this with Dr. Felix and she will place a chest tube. Lactate pending at this time Subjective: 03/10: remains intubated and sedated. acidosis persists, although is slightly better. serum sodium also slightly improved. no more evidence of acute active GI bleed and hgb stable. 03/11: much more awake today. briskly purposeful. not quite following commands, but more alert than yesterday. currently on SBT. Cr worsening despite fluid resuscitation, but made 2L urine yesterday. hgb decreased from 12 --> 8 today, but no evidence of melanotic stools. Objective Vital Signs Date Time Temp Pulse Resp B/P Pulse Ox O2 Delivery O2 Flow Rate FiO2 03/11/17 07:33 35 03/11/17 07:30 99 03/11/17 04:00 99.5 115 16 120/69 03/09/17 18:16 Ventilator Intake and Output 03/10/17 03/10/17 03/11/17 08:00 16:00 00:00 Intake Total 2215 ml 2336 ml 1663 ml Output Total 1272 ml 1372 ml 1200 ml Balance 943 ml 964 ml 463 ml Result Diagram: 03/11/17 0430 03/11/17 0430 Other Results Laboratory Tests Test 03/10/17 10:19 Blood Gas Puncture Site RT RADIAL Blood Gas Patient Temperature 98.6 Blood Gas HCO3 26 mmol/L (22-26) Blood Gas Base Excess 2.6 mmol/L (-2-2) Blood Gas Oxygen Saturation 96 % (90-100) Arterial Blood pH 7.49 (7.380-7.420) Arterial Blood Partial 35 mmHg (38-42) Pressure CO2 Arterial Blood Partial 191 mmHg Pressure O2 (61-120) Arterial Blood Oxygen Content 15.8 Vol % (12.0-20.0) Arterial Blood 1.6 % (0-4) Carboxyhemoglobin Arterial Blood Methemoglobin 2.1 % (0-2) Blood Gas Hemoglobin 11.4 G/DL (12.0-16.0) Oxygen Delivery Device VENTILATOR Blood Gas Ventilator Setting CPAP 5/10PS Blood Gas Inspired Oxygen 40 % Imaging CT abdomen pelvis shows thick dilated gallbladder concerning for acute or chronic cholecystitis Objective Remarks GENERAL: 51-year-old white female patient who is intubated sedated with propofol SKIN: Skin warm and dry HEAD: Atraumatic. Normocephalic. EYES: Pupils equal, reactive. No scleral icterus. ENT: Orotracheally intubated. Oral mucosa moist. NECK: Trachea midline. No JVD. CARDIOVASCULAR: Tachycardic and regular. No murmurs RESPIRATORY: ACV. Breath sounds equal bilaterally. No wheezes or crackles GASTROINTESTINAL: Abdomen soft, patient has right upper quadrant and epigastric tenderness, although improved from yesterday. No rebound MUSCULOSKELETAL: No obvious deformities. No clubbing. No cyanosis. No edema. NEUROLOGICAL: Intubated sedated. Opens eyes to stimulation. Moves all extremities, briskly purposeful. can follow simple commands, moves arms to commands, does not follow more complex commands like "show me two fingers." A/P Assessment and Plan NEURO: Hepatic encephalopathy Alcohol dependence Agitated Delirium - fentanyl and propofol for RASS goal 0 - haldol 5mg iv q4h prn for agitation. -ammonia now downtrended. -continue lactulose 30 mL to 6 hours -continue rifaximin 550 mg by mouth po q12 -Thiamine 100 mg daily IV x 3 days then change to PO. -Tylenol and ASA levels normal. Urine drug screen is negative RESP: Acute hypoxic respiratory failure Severe metabolic acidosis- resolved. Iatrogenic right pneumothorax -Intubated for airway protection and significant metabolic acidosis -vent bundle -Continue ACV 16/450/5 and FiO2 40% -DuoNeb every 6 hours and when necessary -Right pneumothorax secondary to ER physician placing a right central line, s/p chest tube placement. currently on water seal. will check CXR this AM, if no residual ptx, will d/c. CV: Shock- likely not septic, no infectious etiology identified, resolved. Lactic acidosis- resolved Likely severe dehydration -decrease NS to 75cc/hr. -lactate downtrending. GI: Hyperammonemia Upper GI bleed Acute hepatitis with very elevated Transaminases -no more evidence of active bleeding. s/p protonix and octreotide drips -BID IV PPI. -General surgery and gastroenterology following. -no active intervention for gallbladder at this time, felt to be more likely secondary to acute hepatitis. -Broad-spectrum antibiotics -Hepatitis discriminant function is not elevated, no indication for steroids -D/W with Dr. Nelson, more likely to be ischemic hepatitis than alcohol induced. -hepatitis panel pending. -Osmolar gap on admission 30, but this delayed out, no way to confirm or check for solvent ingestion. no crystals in u/a. : Acute kidney injury Severe Dehydration- resolving. -Aggressive fluid resuscitation as above -Monitor renal function closely. Burden catheter - send urine electrolytes and renal ultrasound. hyaline casts on u/a on admission, likely ATN. monitor. ID: Possible cholecystitis -initial hemodynamics concerning for shock, however the only suspected source would be gallbladder, and in discussions with GI, gen surg, and radiology, likely not acute infectious cholecystitis. acute hepatitis could be a cause, however septic shock at this point is much less likely. -IV vancomycin pharmacy to dose, Zosyn renally adjusted -blood cultures 03/09: NGTD. HEME: -Monitor CBC, CMP, Coags -INR normal -hgb dropped. will recheck in the afternoon. ENDO: Hypocalcemia Hypernatremia Hyperglycemia Hypokalemia -Electrolyte replacement per protocol, K 75meq po, 40meq iv. - stop NS. start d5w at 75cc/hr. check serial sodiums. will give 1 dose DDAVP 2 mcg. -SSI, med scale, q6h PROPH: -Bilateral lower extremity SCDs. IV BID PPI. hold on starting chemical DVT prophylaxis given concern for GI bleed and drop in hgb. LINES: -Right subclavian central line placed by ED physician 03/09 -Burden CC time 37 minutes, exclusive of separately billable procedures. Patient is critically ill with guarded prognosis due to ongoing concern for bleeding, severe hyponatremia, liver failure, worsening kidney injury and persistent encephalopathy. multiple organs invovled which are life-threatening on an ongoing basis. Aashish Jones MD Mar 11, 2017 08:10
[2017-03-11] MEDS: THIAMINE INJ 100 MG in SODIUM CHLORIDE 0.9% INJ 100 ML IV SCH (08:11)
[2017-03-11] MEDS ORDERED: DESMOPRESSIN ACETATE 4 MCG/ML VIAL IV PUSH ONE (08:15)
[2017-03-11] MEDS: LACTULOSE SYRUP 20 GM/30 ML CUP PO SCH ×5 (08:37→20:43)
[2017-03-11] MEDS: CHLORHEXIDINE 0.12% (ORAL KIT) 15 ML CUP MT SCH (08:37)
--- NOTE | 2017-03-11 09:03 | RADRPT ---
EXAM DATE/TIME: 03/11/2017 08:05 [facility] COMPARISON: CHEST SINGLE AP, March 10, 2017, 15:03. INDICATIONS : Pneumothorax. Central line. MEDICAL HISTORY : None. SURGICAL HISTORY : None. ENCOUNTER: Subsequent ACUITY: 3 days PAIN SCORE: Non-responsive. LOCATION: Bilateral chest FINDINGS: Chest tube is in place on the right without pneumothorax. Support apparatus is in good position. Betzy ngs are clear. CONCLUSION: Negative for pneumothorax. Nitin Styles MD FACR on March 11, 2017 at 9:00 Board Certified Radiologist. This report was verified electronically.
--- NOTE | 2017-03-11 09:25 | RADRPT ---
EXAM DATE/TIME: 03/11/2017 08:19 [facility] COMPARISON: No previous studies available for comparison. INDICATIONS : Increased BUN/creatinine. MEDICAL HISTORY : Altered mental status. Sepsis. Alcohol abuse. Tobacco use. SURGICAL HISTORY : Unable to obtain. ENCOUNTER: Initial ACUITY: 1 day PAIN SCORE: Nonresponsive. LOCATION: Bilateral flank MEASUREMENTS: RIGHT KIDNEY: 10.5 x 5.0 x 5.0 cm LEFT KIDNEY: 11.2 x 5.9 x 6.2 cm FINDINGS: RIGHT KIDNEY: Renal cortex is normal in thickness and echotexture. No hydronephrosis, stone, or mass. LEFT KIDNEY: Renal cortex is normal in thickness and echotexture. No hydronephrosis, stone, or mass. BLADDER: Within normal limits given the degree of distension. Trace ascites is evident. Left pleural effusion is evident. CONCLUSION: Kidneys are normal in size. Trace ascites and pleural effusion. Nitin Styles MD FACR on March 11, 2017 at 9:20 Board Certified Radiologist. This report was verified electronically.
--- NOTE | 2017-03-11 10:07 | EKG ---
Date Performed: 03/09/2017 Time Performed: 15:49:41 PTAGE: 51 years EKG: Sinus rhythm EARLY REPOLARIZATION MODERATE ST DEPRESSION ABNORMAL ECG NO PREVIOUS TRACING DOCTOR: Saulo Villegas Interpretating Date/Time 03/11/2017 09:52:39
[2017-03-11] MEDS: DEXTROSE 5% IN WATE 1000ML INJ 1,000 ML IV SCH ×2 (10:24→20:43)
[2017-03-11] MEDS: PANTOPRAZOLE SODIUM 40 MG VIAL IV PUSH SCH ×2 (10:27→23:02)
--- NOTE | 2017-03-11 10:51 | HHI.PR ---
Subjective Subjective Notes extubated, with confusion, denying abd pain Objective Vitals/I&O Vital Signs Date Time Temp Pulse Resp B/P Pulse Ox O2 Delivery O2 Flow Rate FiO2 03/11/17 09:35 98 Nasal Cannula 2 03/11/17 07:33 35 03/11/17 06:00 115 03/11/17 04:00 99.5 16 120/69 Labs Laboratory Tests Test 03/10/17 03/10/17 03/11/17 12:55 22:30 04:30 Urine Color LIGHT-YELLOW Urine Turbidity CLEAR Urine pH 6.0 Urine Specific [place] 1.006 Urine Protein TRACE Urine Glucose (UA) NEG Urine Ketones NEG Urine Occult Blood MOD Urine Nitrite NEG Urine Bilirubin NEG Urine Urobilinogen LESS THAN 2.0 Urine Leukocyte Esterase NEG Urine RBC LESS THAN 1 Urine WBC 1 Urine Squamous Epithelial <1 Cells Urine Amorphous Sediment RARE Urine Bacteria RARE Urine Mucus FEW Lactic Acid Level 0.6 White Blood Count 8.2 Red Blood Count 2.74 Hemoglobin 8.9 Hematocrit 24.8 Mean Corpuscular Volume 90.4 Mean Corpuscular Hemoglobin 32.4 Mean Corpuscular Hemoglobin 35.8 Concent Red Cell Distribution Width 12.9 Platelet Count 72 Mean Platelet Volume 8.0 Prothrombin Time 10.4 Prothromb Time International 0.9 Ratio Activated Partial 27.2 Thromboplast Time Sodium Level 145 Potassium Level 2.7 Chloride Level 105 Carbon Dioxide Level 30.2 Anion Gap 10 Blood Urea Nitrogen 39 Creatinine 2.87 Estimat Glomerular Filtration 17 Rate Random Glucose 138 Calcium Level 6.8 Protein Corrected Calcium 8.2 Phosphorus Level 2.3 Magnesium Level 1.7 Total Bilirubin 0.6 Aspartate Amino Transf 699 (AST/SGOT) Alanine Aminotransferase 327 (ALT/SGPT) Alkaline Phosphatase 117 Ammonia 17 Total Protein 4.4 Albumin 2.1 Random Vancomycin Level 17.9 Date/Time Procedure Status Source Growth 03/09/17 15:35 Aerobic Blood Culture - Preliminary Resulted Blood Peripheral NO GROWTH IN 1 DAY 03/09/17 15:35 Anaerobic Blood Culture - Preliminary Resulted Blood Peripheral NO GROWTH IN 1 DAY Abdomen: Other (soft nt/nd) A/P Assessment and Plan etoh, Severe metabolic derangement with sepsis, no current abdominal pain PLAN Will continue to monitor abdominal exams non op mgnt for now f/u labs Javier Dumont MD Mar 11, 2017 10:51
[2017-03-11] MEDS ORDERED: VANCOMYCIN 1,000 MG/NS 250 ML IV ONE ×2 (12:00)
[2017-03-11 19:35] LABS: HEMATOCRIT 27.9 % (35.0-46.0)
[2017-03-11 19:36] LABS: REVIEW FLAG FINAL
[2017-03-11] MEDS: MELATONIN 5 MG TAB PO SCH (20:43)
--- NOTE | 2017-03-11 20:56 | HHI.GIFU ---
Subjective Remarks Comfortable in bed no complaints Objective Vitals I&O Vital Signs Date Time Temp Pulse Resp B/P Pulse Ox O2 Delivery O2 Flow Rate FiO2 03/11/17 18:00 105 03/11/17 16:00 98.8 98 24 128/76 96 03/11/17 16:00 98 03/11/17 14:00 96 03/11/17 12:00 103 03/11/17 12:00 97.9 103 20 140/81 99 03/11/17 10:00 110 03/11/17 09:35 98 Nasal Cannula 2 03/11/17 09:35 98 Nasal Cannula 2.00 03/11/17 08:30 35 03/11/17 08:00 35 03/11/17 08:00 99.1 101 16 130/76 100 03/11/17 08:00 101 03/11/17 07:33 Nasal Cannula 35 03/11/17 07:30 99 35 03/11/17 06:00 115 03/11/17 04:00 98 35 03/11/17 04:00 115 03/11/17 04:00 99.5 115 16 120/69 98 03/11/17 04:00 35 03/11/17 02:00 112 03/11/17 01:45 98 35 03/11/17 00:00 112 03/11/17 00:00 35 03/11/17 00:00 99.7 115 20 144/75 98 03/10/17 22:02 100 35 03/10/17 22:00 112 I/O 03/10/17 03/10/17 03/10/17 03/11/17 03/11/17 03/11/17 07:00 15:00 23:00 07:00 15:00 23:00 Intake Total 2215 ml 2336 ml 1663 ml 1837 ml 1230 ml Output Total 1272 ml 1372 ml 1200 ml 1120 ml 490 ml Balance 943 ml 964 ml 463 ml 717 ml 740 ml Intake Oral 240 ml IV Total 2055 ml 2336 ml 1444 ml 1323 ml 990 ml Tube Feeding 219 ml 514 ml Tube Irrigant 160 ml Output Urine Total 700 ml 1300 ml 850 ml 550 ml 450 ml Stool Total 350 ml 550 ml Gastric Drainage Total 500 ml Chest Tube Drainage Total 72 ml 72 ml 0 ml 20 ml 40 ml Laboratory Laboratory Tests Test 03/10/17 03/11/17 03/11/17 03/11/17 22:30 04:30 12:00 18:00 Lactic Acid Level 0.6 White Blood Count 8.2 Red Blood Count 2.74 Hemoglobin 8.9 9.6 Hematocrit 24.8 27.9 Mean Corpuscular Volume 90.4 Mean Corpuscular Hemoglobin 32.4 Mean Corpuscular Hemoglobin 35.8 Concent Red Cell Distribution Width 12.9 Platelet Count 72 Mean Platelet Volume 8.0 Prothrombin Time 10.4 Prothromb Time International 0.9 Ratio Activated Partial 27.2 Thromboplast Time Sodium Level 145 147 145 Potassium Level 2.7 Chloride Level 105 Carbon Dioxide Level 30.2 Anion Gap 10 Blood Urea Nitrogen 39 Creatinine 2.87 Estimat Glomerular Filtration 17 Rate Random Glucose 138 Calcium Level 6.8 Protein Corrected Calcium 8.2 Phosphorus Level 2.3 Magnesium Level 1.7 Total Bilirubin 0.6 Aspartate Amino Transf 699 (AST/SGOT) Alanine Aminotransferase 327 (ALT/SGPT) Alkaline Phosphatase 117 Ammonia 17 Total Protein 4.4 Albumin 2.1 Random Vancomycin Level 17.9 Urine Eosinophils NONE SEEN Urine Random Creatinine 78.3 Urine Random Sodium 52 Date/Time Procedure Status Source Growth 03/09/17 15:35 Aerobic Blood Culture - Preliminary Resulted Blood Peripheral NO GROWTH IN 2 DAYS 03/09/17 15:35 Anaerobic Blood Culture - Preliminary Resulted Blood Peripheral NO GROWTH IN 2 DAYS Imaging Last 48 hours Impressions Renal Ultrasound 03/11/17 0000 Signed Impressions: Service Date/Time: Saturday, March 11, 2017 08:19 - CONCLUSION: Kidneys are normal in size. Trace ascites and pleural effusion. Nitin Styles MD FACR Chest X-Ray 03/11/17 0000 Signed Impressions: Service Date/Time: Saturday, March 11, 2017 08:05 - CONCLUSION: Negative for pneumothorax. Nitin Styles MD FACR Chest X-Ray 03/10/17 1500 Signed Impressions: Service Date/Time: Friday, March 10, 2017 15:03 - CONCLUSION: Miniscule right apical pneumothorax. Chest tube remains in place. Unchanged lines and tubes. Bogdan López MD Physical Exam HEENT: normocephalic; atraumatic; no jaundice. Throat is clear. NECK: Neck is supple,. CHEST: Chest is clear to auscultation and percussion. CARDIAC: Regular rate and rhythm with no murmur gallop or rubs. ABDOMEN: Soft, nondistended, nontender; no hepatosplenomegaly; bowel sounds are present in all four quadrants. EXTREMITIES: No clubbing, cyanosis, or edema. SKIN: Normal; no rash; no jaundice. BE[employer] SAW OPERATOR: No focal deficits; alert and oriented times three. Assessment and Plan Plan -upper GI bleed- consulted for Coffee ground emesis in the NG tube and hepatic encephalopathy. No active bleed endoscopy unremarkable for cause for bleed with noted esophagitis and gastritis but no varices or portal gastropathy - Hepatic encephalopathy- Improving On admission, ammonia was 247, started on lactulose and Xifaxan - Elevated LFTs- Trending down. likely shocked liver due to hypotension, but could be combined with underlying liver dz and alcohol abuse, toxicology negative On admission AST was 4426 ALT 967 ALP 200 - Cholecystitis- CT abdomen pelvis showed a dilated gallbladder concerning for at least chronic Cholecystitis and fatty liver. Does not appear to be in acute cholecystitis at this point but will defer to the Gen. surgery service - Respiratory failure/ septic shock- intubated per [facility] patient has been extubated and this seems to have resolved - Leukocytosis- improving vancomycin and Zosyn - Alcohol abuse, hx of abisai drinking X 5 days, was declined by Christopher Ying due to being too sick - Electrolyte abnormalities- per [facility] - Acute renal failure- secondary to above Plan: -Diet as tolerated low-salt - KOBI, ASMA, AMA, ceruloplasmin, alpha- 1 antitrypsin deficiency, celiac panel, iron studies, hepatitis panel, AFP workup in progress - Monitor labs -Continue PPI - Cont. lactulose, Xifaxan, abx - Notify Gi for active bleeding - Alcohol cessation - Joseph Nelson MD Mar 11, 2017 20:56
[2017-03-12] VITALS (22 sets, daily range): BP systolic 121–156; BP diastolic 67–83; PULSE 68–100; RESP 9–33; TEMP 98.1–98.5; O2SAT 93–100
[2017-03-12] MEDS: PIPERACIL-TAZO 3.375 GM PREMIX 50 ML IV SCH ×4 (02:18→20:40)
[2017-03-12] MEDS: RESP: ALBUTEROL 2.5 MG/IPRATROPIUM 0.5 MG NEB (SCH) NEB ×4 (02:37→21:32)
[2017-03-12 03:28] LABS: MEAN CELL VOLUME 93.3 FL (80.0-100.0); MEAN CORPUSCULAR HEMOGLOBIN 31.5 PG (27.0-34.0); MEAN CORPUSCULAR HGB CONC 33.7 % (32.0-36.0); PLATELET COUNT 59 TH/MM3 (150-450); RED BLOOD COUNT 2.79 MIL/MM3 (4.00-5.30); WHITE BLOOD COUNT 9.8 TH/MM3 (4.0-11.0)
[2017-03-12 03:32] LABS: REVIEW FLAG FINAL
[2017-03-12 03:39] LABS: APTT (PATIENT) 26.7 SEC (24.3-30.1); INTERNATIONAL NORMALIZED RATIO 0.9 RATIO; PROTHROMBIN TIME - PATIENT 9.9 SEC (9.8-11.6)
[2017-03-12 03:43] LABS: ANION GAP 8 MEQ/L (5-15); AST (GOT) 292 U/L (15-37); BICARBONATE 30.3 MEQ/L (21.0-32.0); BLOOD UREA NITROGEN 31 MG/DL (7-18); CHLORIDE 106 MEQ/L (98-107); GLOMERULAR FILTRATION RATE 19 ML/MIN (>89); MAGNESIUM 1.6 MG/DL (1.5-2.5); POTASSIUM 3.2 MEQ/L (3.5-5.1); SODIUM (NA) 144 MEQ/L (136-145)
[2017-03-12 03:46] LABS: ALKALINE PHOSPHATASE 98 U/L (45-117); ALT (GPT) 204 U/L (10-53); TOTAL BILIRUBIN ADULT 0.6 MG/DL (0.2-1.0)
--- NOTE | 2017-03-12 04:58 | RADRPT ---
EXAM DATE/TIME: 03/12/2017 04:13 [facility] COMPARISON: CHEST SINGLE AP, March 11, 2017, 8:05. INDICATIONS : Shortness of breath. possible pulmonary disease. MEDICAL HISTORY : None. SURGICAL HISTORY : None. ENCOUNTER: Subsequent ACUITY: 4 - 6 days PAIN SCORE: Non-responsive. LOCATION: Bilateral chest FINDINGS: Right subclavian line is present with tip overlapping the expected region of the SVC. Previously seen NG tube and ET tube have been removed. Previously seen right chest tube has been removed. No definit e pneumothorax is seen for technique. There is mild haziness to the left lung base and probable mild case of pulmonary edema diffusely. CONCLUSION: Mild haziness left lung base and probable mild case of pulmonary edema. Lester Lawton MD on March 12, 2017 at 4:55 Board Certified Radiologist. This report was verified electronically.
[2017-03-12] MEDS: INSULIN NovoLIN REGULAR SUPPLEMENTAL SCALE SQ SCH ×4 (06:00→18:00)
--- NOTE | 2017-03-12 08:36 | HHI.CCPN ---
Subjective Remarks/Hospital Course Hospital Course: Patient is a 51-year-old female with past medical history of alcohol dependence , no other known history was brought in by the family members after she went on a heavy drinking binge for 5 days. Family initially took the patient to [facility] but they refused admit as a patient was too sick. No other history is available as the patient is intubated and there is no bystander. Initial vitals showed a blood pressure 72/42 patient was tachycardic. She received 3 L normal saline IV fluid bolus. ABG showed pH of 7.14 with a base excess of -22. Patient also had altered mental status. Patient was intubated due to severe metabolic acidosis and altered mental status. Lab work came back abnormal, white count was 19.9 with left shift, BUN 38 creatinine of 1.76, protein corrected calcium was 6.9 bicarbonate was 9.5 goal is to 14 AST was 4426. Ammonia level was 247. ALT and lactic acid are pending at this time. A CT abdomen pelvis showed a dilated gallbladder concerning for at least chronic cholecystitis. Gen. surgery had been consulted for possible acute cholecystitis I evaluated the patient in the ED. Hemodynamically improved after 3 L boluses, patient remains confused on the ventilator. Patient was noted to have coffee- ground material from NG tube. IV Protonix infusion started and I have added octreotide. I have discussed with Dr. Nelson, patient will undergo EGD tomorrow a.m. patient received vancomycin and Zosyn in the ED which will be continued. General surgery consulted with Dr. Dumont pending at this time. I have also requested Tylenol and salicylate levels, Liver enzymes are extremely elevated which could be from ischemic hepatitis. It was also noted that patient had pneumothorax after central line placement by the ER physician. I have discussed this with Dr. Felix and she will place a chest tube. Lactate pending at this time Subjective: 03/10: remains intubated and sedated. acidosis persists, although is slightly better. serum sodium also slightly improved. no more evidence of acute active GI bleed and hgb stable. 03/11: much more awake today. briskly purposeful. not quite following commands, but more alert than yesterday. currently on SBT. Cr worsening despite fluid resuscitation, but made 2L urine yesterday. hgb decreased from 12 --> 8 today, but no evidence of melanotic stools. 03/12: No acute issues overnight. Patient awake alert and oriented 3. Patient complains of diffuse weakness. Continue monitoring of hemoglobin. No noted emesis. Urine output adequate despite worsening creatinine. Hemoglobin 8.8 today from 9.6 yesterday. Objective Vital Signs Date Time Temp Pulse Resp B/P Pulse Ox O2 Delivery O2 Flow Rate FiO2 03/12/17 06:00 74 03/12/17 04:00 98.3 20 121/68 98 03/11/17 21:05 Nasal Cannula 2.00 03/11/17 08:30 35 Intake and Output 03/11/17 03/11/17 03/12/17 08:00 16:00 00:00 Intake Total 1837 ml 1230 ml 2083 ml Output Total 1120 ml 490 ml 900 ml Balance 717 ml 740 ml 1183 ml Result Diagram: 03/12/17 0315 03/12/[address] abdomen pelvis shows thick dilated gallbladder concerning for acute or chronic cholecystitis Objective Remarks GENERAL: 51-year-old white female patient, awake alert and oriented 3 pleasantly conversant SKIN: Skin warm and dry HEAD: Atraumatic. Normocephalic. EYES: Pupils equal, reactive. No scleral icterus. ENT: Oral mucosa moist. NECK: Trachea midline. No JVD. CARDIOVASCULAR: Regular rate and rhythm. No murmurs RESPIRATORY: ACV. Breath sounds equal bilaterally. No wheezes or crackles GASTROINTESTINAL: Abdomen soft, patient has right upper quadrant and epigastric tenderness. No rebound tenderness noted MUSCULOSKELETAL: No obvious deformities. No clubbing. No cyanosis. No edema. NEUROLOGICAL: GCS 15, alert and oriented 3. Moves all extremities x 4. Neurologically intact. Vascular Central Line Catheter: Yes Side: Right Location: Subclavian Reason for Continuation Medication infusion, CVP monitoring if needed. A/P Assessment and Plan NEURO: Hepatic encephalopathy-resolved Alcohol dependence Agitated Delirium - GCS 15, status post extubation - Haldol 5mg iv q 4h prn for agitation. -ammonia now downtrending -continue lactulose 30 mL to 6 hours -continue rifaximin 550 mg by mouth po q12 -Thiamine 100 mg daily IV x 3 days then change to PO. -Tylenol and ASA levels normal. Urine drug screen is negative RESP: Acute hypoxic respiratory failure Severe metabolic acidosis- resolved. Iatrogenic right pneumothorax -Intubated for airway protection and significant metabolic acidosis -Begin incentive spirometry every hour while awake -Continue nasal cannula 2 LP/M -DuoNeb every 6 hours and when necessary -Right pneumothorax secondary to ER physician placing a right central line, s/p chest tube placement. Chest tube discontinued 03/11 CV: Shock- likely not septic, no infectious etiology identified, resolved. Lactic acidosis- resolved Likely severe dehydration-resolved -lactate downtrending -Telemetry normal sinus rhythm GI: Hyperammonemia Upper GI bleed Acute hepatitis with very elevated Transaminases -no more evidence of active bleeding. s/p protonix and octreotide drips -Protonix BID IV PPI. -General surgery and gastroenterology following. -no active intervention for gallbladder at this time, felt to be more likely secondary to acute hepatitis. -Broad-spectrum antibiotics -Hepatitis discriminant function is not elevated, no indication for steroids -D/W with Dr. Nelson, more likely to be ischemic hepatitis than alcohol induced. -hepatitis panel pending. -Osmolar gap on admission 30, but this delayed out, no way to confirm or check for solvent ingestion. no crystals in u/a. : Acute kidney injury-secondary to hypotension Severe Dehydration- resolving -Aggressive fluid resuscitation as above -Monitor renal function closely. Burden catheter - send urine electrolytes and renal ultrasound. hyaline casts on u/a on admission, likely ATN. monitor. -Creatinine 2.87-> 2.59 today, will continue to monitor, urine output adequate -Avoid nephrotoxins ID: Possible cholecystitis -initial hemodynamics concerning for shock, however the only suspected source would be gallbladder, and in discussions with GI, gen surg, and radiology, likely not acute infectious cholecystitis. acute hepatitis could be a cause, however septic shock at this point is much less likely. -IV vancomycin pharmacy to dose, Zosyn renally adjusted -03/12-DC vancomycin -blood cultures 03/09: NGTD. HEME: -Monitor CBC, CMP, Coags -INR normal -Hgb 9.6-> 8.8 today , follow-up this afternoon ENDO: Hypocalcemia Hypernatremia Hyperglycemia Hypokalemia -Electrolyte replacement per protocol, K 75meq po, 40meq iv. - stop NS. start d5w at 75cc/hr. check serial sodiums. will give 1 dose DDAVP 2 mcg. -SSI, med scale, q6h PROPH: -Bilateral lower extremity SCDs. IV BID PPI. hold on starting chemical DVT prophylaxis given concern for GI bleed and drop in hgb. LINES: -Right subclavian central line placed by ED physician 03/09 -Burden CC time 30 minutes, exclusive of separately billable procedures. Patient is critically ill secondary to ongoing concern for bleeding, severe hyponatremia, liver failure, worsening kidney injury and persistent encephalopathyand multiple organ involvement which are life-threatening on an ongoing basis. Physician Doreen Love MD Mar 12, 2017 08:36
[2017-03-12] MEDS ORDERED: MAGNESIUM SULFATE 1 GM PREMIX 100 ML IV ONE (09:00)
[2017-03-12] MEDS ORDERED: POTASSIUM CHLOR 20 MEQ PREMIX 100 ML IV ONE (09:00)
[2017-03-12] MEDS: LACTULOSE SYRUP 20 GM/30 ML CUP PO SCH ×3 (09:11→14:14)
[2017-03-12] MEDS: PANTOPRAZOLE SODIUM 40 MG VIAL IV PUSH SCH ×2 (09:12→22:40)
[2017-03-12] MEDS: RIFAXIMIN 550 MG TAB PO SCH ×2 (09:12→20:40)
[2017-03-12] MEDS ORDERED: POTASSIUM PHOSPHATE MONOBASIC 500 MG TAB PO ONE (12:15)
--- NOTE | 2017-03-12 14:52 | HHI.GIFU ---
Subjective Remarks Resting in bed. No active bleeding. No nausea, vomiting, abdominal pain. Pt and nurse report constant diarrhea- liquid brown stool. (Saba Garcia) Objective Vitals I&O Vital Signs Date Time Temp Pulse Resp B/P Pulse Ox O2 Delivery O2 Flow Rate FiO2 03/12/17 14:00 84 22 143/82 99 03/12/17 14:00 84 03/12/17 13:00 87 22 132/80 98 03/12/17 13:00 87 03/12/17 12:00 98.5 90 24 131/73 99 03/12/17 12:00 90 03/12/17 11:00 95 24 125/71 96 03/12/17 11:00 95 03/12/17 10:00 86 03/12/17 10:00 86 29 133/77 96 03/12/17 09:00 95 03/12/17 09:00 95 21 131/67 93 03/12/17 08:52 95 Nasal Cannula 2.00 03/12/17 08:00 98.2 83 21 127/68 97 03/12/17 08:00 83 03/12/17 06:00 74 03/12/17 04:00 68 03/12/17 04:00 98.3 68 20 121/68 98 03/12/17 02:00 91 03/12/17 00:00 98.2 100 19 124/77 99 03/12/17 00:00 100 03/11/17 22:00 101 03/11/17 21:05 100 Nasal Cannula 2.00 03/11/17 20:00 103 03/11/17 20:00 98.3 104 33 137/89 99 03/11/17 18:00 105 03/11/17 16:00 98.8 98 24 128/76 96 03/11/17 16:00 98 I/O 03/11/17 03/11/17 03/11/17 03/12/17 03/12/17 03/12/17 07:00 15:00 23:00 07:00 15:00 23:00 Intake Total 1837 ml 1230 ml 2083 ml 1402 ml Output Total 1120 ml 490 ml 900 ml 600 ml Balance 717 ml 740 ml 1183 ml 802 ml Intake Oral 240 ml 1420 ml 640 ml IV Total 1323 ml 990 ml 663 ml 762 ml Tube Feeding 514 ml Output Urine Total 550 ml 450 ml 400 ml 450 ml Stool Total 550 ml 500 ml 150 ml Chest Tube Drainage Total 20 ml 40 ml Laboratory Laboratory Tests Test 03/11/17 03/12/17 03/12/17 03/12/17 18:00 00:45 03:15 06:10 Hemoglobin 9.6 8.8 Hematocrit 27.9 26.0 Sodium Level 145 144 144 141 White Blood Count 9.8 Red Blood Count 2.79 Mean Corpuscular Volume 93.3 Mean Corpuscular Hemoglobin 31.5 Mean Corpuscular Hemoglobin 33.7 Concent Red Cell Distribution Width 13.0 Platelet Count 59 Mean Platelet Volume 8.5 Prothrombin Time 9.9 Prothromb Time International 0.9 Ratio Activated Partial 26.7 Thromboplast Time Potassium Level 3.2 Chloride Level 106 Carbon Dioxide Level 30.3 Anion Gap 8 Blood Urea Nitrogen 31 Creatinine 2.59 Estimat Glomerular Filtration 19 Rate Random Glucose 116 Calcium Level 7.5 Phosphorus Level 2.0 Magnesium Level 1.6 Total Bilirubin 0.6 Aspartate Amino Transf 292 (AST/SGOT) Alanine Aminotransferase 204 (ALT/SGPT) Alkaline Phosphatase 98 Ammonia 22 Total Protein 4.4 Albumin 2.1 Random Vancomycin Level 21.0 Test 03/12/17 11:51 Sodium Level 138 Date/Time Procedure Status Source Growth 03/09/17 15:35 Aerobic Blood Culture - Preliminary Resulted Blood Peripheral NO GROWTH IN 3 DAYS 03/09/17 15:35 Anaerobic Blood Culture - Preliminary Resulted Blood Peripheral NO GROWTH IN 3 DAYS Imaging Last Impressions Chest X-Ray 03/12/17 0000 Signed Impressions: Service Date/Time: Sunday, March 12, 2017 04:13 - CONCLUSION: Mild haziness left lung base and probable mild case of pulmonary edema. Lester Lawton MD Renal Ultrasound 03/11/17 0000 Signed Impressions: Service Date/Time: Saturday, March 11, 2017 08:19 - CONCLUSION: Kidneys are normal in size. Trace ascites and pleural effusion. Nitin Styles MD FACR Head CT 03/09/17 1407 Signed Impressions: Service Date/Time: Thursday, March 09, 2017 14:30 - CONCLUSION: Normal examination. Arturo Rivero Jr., MD Abdomen/Pelvis CT 03/09/17 0000 Signed Impressions: Service Date/Time: Thursday, March 09, 2017 14:36 - CONCLUSION: 1. Distended gallbladder with thick wall suspicious for at least chronic cholecystitis. Correlation is suggested. 2. Fatty replacement to the liver. Nitin Styles MD FACR Physical Exam HEENT: Normocephalic; atraumatic; no jaundice. CHEST: CTA CARDIAC: RRR ABDOMEN: Soft, nondistended, nontender; no hepatosplenomegaly; bowel sounds are present in all four quadrants. Rectal bag with liquid brown stool EXTREMITIES: No clubbing, cyanosis, or edema. SKIN: Normal; no rash; no jaundice. SUPERINTENDENT INSTITUTION: No focal deficits; alert and oriented times three. (Saba Garcia COMPUTER TECHNICAL SUPPORT SPECIALIST) Assessment and Plan Plan ASSESSMENT: - Upper GI bleed, Coffee ground emesis. EGD (03/10/17)---> Esophagitis, gastritis. No further active bleeding. HH 8.8/26.0. - Hepatic encephalopathy. IMPROVED. Ammonia 22. Lactulose QID, Xifaxan. Having constant liquid brown diarrhea. A/Ox 3. - Elevated LFTs- Trending down. likely shocked liver due to hypotension, but could be combined with underlying liver dz and alcohol abuse, toxicology negative Hepatitis negative, KOBI/ASMA/AMA pending, Ceruloplasmin/Alpha 1 Antitrypsin pending. Iron saturation 47.6%. Ferritin 13,571. - Cholecystitis- CT abdomen pelvis showed a dilated gallbladder concerning for at least chronic Cholecystitis and fatty liver. Does not appear to be in acute cholecystitis at this point but will defer to the Gen. surgery service - Respiratory failure/septic shock/leukocytosis. Improved. Now extubated. Zosyn - Alcohol abuse, hx of binge drinking X 5 days, was declined by Christopher Ying due to being too sick - Electrolyte abnormalities, improved - Acute renal failure- secondary to above Plan: - Diet as tolerated low-salt - D/C Lactulose. - Await KOBI, ASMA, AMA, ceruloplasmin, alpha- 1 antitrypsin deficiency, celiac pane - Hfe gene - Monitor labs - Continue PPI - Cont. Abx - Notify Gi for active bleeding - Alcohol cessation, verbalizes understanding - Supportive care - Further recommendations to follow based on results of above. - Pt seen and examined by Dr. Jesus and myself and this note is written on his behalf (Saba Garcia) Physician Comments Seen and examined, elevated ferritin. HFE gene ordered. Monitor labs. (Regina Jesus MD) Saba Garcia Mar 12, 2017 14:52 Regina Jesus MD Mar 12, 2017 19:32
--- NOTE | 2017-03-12 15:14 | HHI.PR ---
Subjective Subjective Notes Resting in bed Complains of no abdominal pain Objective Vitals/I&O Vital Signs Date Time Temp Pulse Resp B/P Pulse Ox O2 Delivery O2 Flow Rate FiO2 03/12/17 14:00 84 22 143/82 99 03/12/17 12:00 98.5 03/12/17 08:52 Nasal Cannula 2.00 03/11/17 08:30 35 Labs Laboratory Tests Test 03/11/17 03/12/17 03/12/17 03/12/17 18:00 00:45 03:15 06:10 Hemoglobin 9.6 8.8 Hematocrit 27.9 26.0 Sodium Level 145 144 144 141 White Blood Count 9.8 Red Blood Count 2.79 Mean Corpuscular Volume 93.3 Mean Corpuscular Hemoglobin 31.5 Mean Corpuscular Hemoglobin 33.7 Concent Red Cell Distribution Width 13.0 Platelet Count 59 Mean Platelet Volume 8.5 Prothrombin Time 9.9 Prothromb Time International 0.9 Ratio Activated Partial 26.7 Thromboplast Time Potassium Level 3.2 Chloride Level 106 Carbon Dioxide Level 30.3 Anion Gap 8 Blood Urea Nitrogen 31 Creatinine 2.59 Estimat Glomerular Filtration 19 Rate Random Glucose 116 Calcium Level 7.5 Phosphorus Level 2.0 Magnesium Level 1.6 Total Bilirubin 0.6 Aspartate Amino Transf 292 (AST/SGOT) Alanine Aminotransferase 204 (ALT/SGPT) Alkaline Phosphatase 98 Ammonia 22 Total Protein 4.4 Albumin 2.1 Random Vancomycin Level 21.0 Test 03/12/17 11:51 Sodium Level 138 Date/Time Procedure Status Source Growth 03/09/17 15:35 Aerobic Blood Culture - Preliminary Resulted Blood Peripheral NO GROWTH IN 3 DAYS 03/09/17 15:35 Anaerobic Blood Culture - Preliminary Resulted Blood Peripheral NO GROWTH IN 3 DAYS Cardiovascular: Regular Lungs: Clear Abdomen: Non-distended, Non-tender Extremities: No edema A/P Assessment and Plan 51 year old female + ETOH, Severe metabolic derangement with sepsis -Will continue to monitor abdominal exams---currently no abdominal pain -Start PO diet -non op mgnt for now -GI following Attending Note - Dr. Sargent Abdomen completely nontender Will sign off if no probs with diet The exam, history, and the medical decision-making described in the above note were completed with the assistance of the mid-level provider. I reviewed and agree with the findings presented. I attest that I had a [id number] encounter with the patient on the same day, and personally performed and documented my assessment and findings in the medical record. Edna Cheema Mar 12, 2017 15:14 Toño Sargent MD Mar 13, 2017 19:42
[2017-03-12 15:37] LABS: ANA SCREEN NEG (NEG)
[2017-03-12] MEDS: DEXTROSE 5% IN WATE 1000ML INJ 1,000 ML IV SCH (15:56)
[2017-03-12 16:21] LABS: HEMATOCRIT 27.3 % (35.0-46.0)
[2017-03-12 16:22] LABS: REVIEW FLAG FINAL
[2017-03-12] MEDS: MELATONIN 5 MG TAB PO SCH (20:40)
[2017-03-13] VITALS (17 sets, daily range): BP systolic 123–171; BP diastolic 63–93; PULSE 87–111; RESP 12–37; TEMP 98.2–99.3; O2SAT 90–100
[2017-03-13] MEDS: RESP: ALBUTEROL 2.5 MG/IPRATROPIUM 0.5 MG NEB (SCH) NEB ×4 (03:34→20:57)
[2017-03-13] MEDS ORDERED: ONDANSETRON HCL 4 MG/2 ML VIAL ONE (03:57)
[2017-03-13] MEDS: PIPERACIL-TAZO 3.375 GM PREMIX 50 ML IV SCH ×4 (04:00→21:02)
[2017-03-13] MEDS: ONDANSETRON HCL 4 MG/2 ML VIAL IV PRN ×2 (04:01→22:33)
[2017-03-13 04:12] LABS: ALT (GPT) 144 U/L (10-53); ANION GAP 7 MEQ/L (5-15); AST (GOT) 118 U/L (15-37); BICARBONATE 27.6 MEQ/L (21.0-32.0); BLOOD UREA NITROGEN 30 MG/DL (7-18); CHLORIDE 106 MEQ/L (98-107); GLOMERULAR FILTRATION RATE 23 ML/MIN (>89); HEMATOCRIT 24.8 % (35.0-46.0); MAGNESIUM 1.7 MG/DL (1.5-2.5); MEAN CELL VOLUME 93.9 FL (80.0-100.0); MEAN CORPUSCULAR HEMOGLOBIN 31.6 PG (27.0-34.0); MEAN CORPUSCULAR HGB CONC 33.7 % (32.0-36.0); PLATELET COUNT 47 TH/MM3 (150-450); POTASSIUM 3.1 MEQ/L (3.5-5.1); RED BLOOD COUNT 2.64 MIL/MM3 (4.00-5.30); SODIUM (NA) 141 MEQ/L (136-145)
[2017-03-13 04:15] LABS: ALKALINE PHOSPHATASE 103 U/L (45-117); TOTAL BILIRUBIN ADULT 0.7 MG/DL (0.2-1.0)
[2017-03-13 04:16] LABS: APTT (PATIENT) 25.8 SEC (24.3-30.1); INTERNATIONAL NORMALIZED RATIO 0.9 RATIO; PROTHROMBIN TIME - PATIENT 9.6 SEC (9.8-11.6)
[2017-03-13 04:20] LABS: REVIEW FLAG FINAL
[2017-03-13] MEDS: INSULIN NovoLIN REGULAR SUPPLEMENTAL SCALE SQ SCH ×3 (05:22→11:34)
[2017-03-13] MEDS: DEXTROSE 5% IN WATE 1000ML INJ 1,000 ML IV SCH (05:22)
[2017-03-13] MEDS: RIFAXIMIN 550 MG TAB PO SCH ×2 (08:25→21:02)
--- NOTE | 2017-03-13 09:12 | HHI.CCPN ---
Subjective Remarks/Hospital Course Hospital Course: Patient is a 51-year-old female with past medical history of alcohol dependence , no other known history was brought in by the family members after she went on a heavy drinking binge for 5 days. Family initially took the patient to [facility] but they refused admit as a patient was too sick. No other history is available as the patient is intubated and there is no bystander. Initial vitals showed a blood pressure 72/42 patient was tachycardic. She received 3 L normal saline IV fluid bolus. ABG showed pH of 7.14 with a base excess of -22. Patient also had altered mental status. Patient was intubated due to severe metabolic acidosis and altered mental status. Lab work came back abnormal, white count was 19.9 with left shift, BUN 38 creatinine of 1.76, protein corrected calcium was 6.9 bicarbonate was 9.5 goal is to 14 AST was 4426. Ammonia level was 247. ALT and lactic acid are pending at this time. A CT abdomen pelvis showed a dilated gallbladder concerning for at least chronic cholecystitis. Gen. surgery had been consulted for possible acute cholecystitis I evaluated the patient in the ED. Hemodynamically improved after 3 L boluses, patient remains confused on the ventilator. Patient was noted to have coffee- ground material from NG tube. IV Protonix infusion started and I have added octreotide. I have discussed with Dr. Nelson, patient will undergo EGD tomorrow a.m. patient received vancomycin and Zosyn in the ED which will be continued. General surgery consulted with Dr. Dumont pending at this time. I have also requested Tylenol and salicylate levels, Liver enzymes are extremely elevated which could be from ischemic hepatitis. It was also noted that patient had pneumothorax after central line placement by the ER physician. I have discussed this with Dr. Felix and she will place a chest tube. Lactate pending at this time Subjective: 03/10: remains intubated and sedated. acidosis persists, although is slightly better. serum sodium also slightly improved. no more evidence of acute active GI bleed and hgb stable. 03/11: much more awake today. briskly purposeful. not quite following commands, but more alert than yesterday. currently on SBT. Cr worsening despite fluid resuscitation, but made 2L urine yesterday. hgb decreased from 12 --> 8 today, but no evidence of melanotic stools. 03/12: No acute issues overnight. Patient awake alert and oriented 3. Patient complains of diffuse weakness. Continue monitoring of hemoglobin. No noted emesis. Urine output adequate despite worsening creatinine. Hemoglobin 8.8 today from 9.6 yesterday. 03/13: Afebrile Hemoglobin stable. The patient was advanced out of bed to chair yesterday without any difficulty. The patient's diet was advanced to a regular diet, and lactulose was discontinued. Noted creatinine continues to down trend. Lately count noted to be downtrending, currently 47, planned transfusion of 1 unit of platelets today. Objective Vital Signs Date Time Temp Pulse Resp B/P Pulse Ox O2 Delivery O2 Flow Rate FiO2 03/13/17 06:00 89 34 158/88 90 03/13/17 04:00 98.6 03/12/17 21:33 21 03/12/17 08:52 Nasal Cannula 2.00 Intake and Output 03/12/17 03/12/17 03/13/17 08:00 16:00 00:00 Intake Total 1402 ml 1613 ml 1021 ml Output Total 600 ml 1300 ml 575 ml Balance 802 ml 313 ml 446 ml Result Diagram: 03/13/17 0330 03/13/[address] abdomen pelvis shows thick dilated gallbladder concerning for acute or chronic cholecystitis Objective Remarks GENERAL: 51-year-old white female patient, awake alert and oriented 3. SKIN: Skin warm and dry HEAD: Atraumatic. Normocephalic. EYES: Pupils equal, reactive. No scleral icterus. ENT: Oral mucosa moist. NECK: Trachea midline. No JVD. CARDIOVASCULAR: Regular rate and rhythm. No murmurs RESPIRATORY: ACV. Breath sounds equal bilaterally. No wheezes or crackles GASTROINTESTINAL: Abdomen soft, patient has right upper quadrant and epigastric tenderness. No rebound tenderness noted MUSCULOSKELETAL: No obvious deformities. No clubbing. No cyanosis. No edema. NEUROLOGICAL: GCS 15, alert and oriented 3. Moves all extremities x 4. Neurologically intact. Urinary Catheter: Yes Assessment to: Remove Side: Right Location: Subclavian A/P Assessment and Plan NEURO: Hepatic encephalopathy-resolved Alcohol dependence Agitated Delirium - GCS 15, status post extubation - Haldol 5mg iv q 4h prn for agitation. -ammonia now downtrending -Discontinued lactulose 30 mL to 6 hours on 03/13 -continue rifaximin 550 mg by mouth po q12 -Thiamine 100 mg daily IV x 3 days then change to PO. -Tylenol and ASA levels normal. Urine drug screen is negative RESP: Acute hypoxic respiratory failure Severe metabolic acidosis- resolved. Iatrogenic right pneumothorax -Intubated for airway protection and significant metabolic acidosis -Incentive spirometry every hour while awake -Room air O2 sat 92% -DuoNeb every 6 hours and when necessary -Right pneumothorax secondary to ER physician placing a right central line, s/p chest tube placement. Chest tube discontinued 03/11 -03/12 chest x-ray no pneumothorax CV: Shock- likely not septic, no infectious etiology identified, resolved. Lactic acidosis- resolved Likely severe dehydration-resolved -Telemetry normal sinus rhythm GI: Hyperammonemia-resolved Upper GI bleed Acute hepatitis with very elevated Transaminases -no more evidence of active bleeding. s/p protonix and octreotide drips -Protonix BID IV PPI. -General surgery and gastroenterology following. -no active intervention for gallbladder at this time, felt to be more likely secondary to acute hepatitis. -Broad-spectrum antibiotics -Hepatitis discriminant function is not elevated, no indication for steroids -D/W with Dr. Nelson, more likely to be ischemic hepatitis than alcohol induced. -hepatitis panel pending. -Osmolar gap on admission 30, but this delayed out, no way to confirm or check for solvent ingestion. no crystals in u/a. : Acute kidney injury-secondary to hypotension Severe Dehydration- resolving -Aggressive fluid resuscitation as above -Monitor renal function closely. Burden catheter - send urine electrolytes and renal ultrasound. hyaline casts on u/a on admission, likely ATN. monitor. -Creatinine 2.87-> 2.59 today, will continue to monitor, urine output adequate -Avoid nephrotoxins ID: Possible cholecystitis -initial hemodynamics concerning for shock, however the only suspected source would be gallbladder, and in discussions with GI, gen surg, and radiology, likely not acute infectious cholecystitis. acute hepatitis could be a cause, however septic shock at this point is much less likely. -IV vancomycin pharmacy to dose, Zosyn renally adjusted -03/12-DC vancomycin -blood cultures 03/09: NGTD. HEME: Thrombocytopenia -Monitor CBC, CMP, Coags -Platelet count 47, transfuse 1 unit of platelets -Hgb 9.6-> 8.8 today , follow-up this afternoon ENDO: Hypocalcemia-resolved Hypernatremia-resolved Hyperglycemia-resolved Hypokalemia -Electrolyte replacement per ICU protocol - D/C IVF's -SSI, med scale, q6h PROPH: -Bilateral lower extremity SCDs. Patient to ambulate around the room out of bed to chair IV BID PPI. hold on starting chemical DVT prophylaxis given concern for GI bleed and drop in hgb. LINES: -Right subclavian central line placed by ED physician 03/09 -Jenise Dispo: Level 3. Discussed with patient and ARCHITECTURAL RENDERER at bedside. Plan transfer to [facility] in a.m. Physician Doreen Love MD Mar 13, 2017 09:12
[2017-03-13] MEDS ORDERED: POTASSIUM PHOSPHATE INJ 15 MMOL in SODIUM CHLORIDE 0.9% INJ 150 ML IV ONE (10:00)
--- NOTE | 2017-03-13 10:31 | HHI.GIFU ---
Subjective Remarks Resting in bed. No n/v, abdominal pain. Diarrhea improved. Started on diet. (Saba Garcia) Objective Vitals I&O Vital Signs Date Time Temp Pulse Resp B/P Pulse Ox O2 Delivery O2 Flow Rate FiO2 03/13/17 06:00 89 34 158/88 90 03/13/17 06:00 89 03/13/17 05:01 111 35 163/93 93 03/13/17 05:01 111 03/13/17 04:00 106 03/13/17 04:00 98.6 106 37 131/79 94 03/13/17 03:00 90 34 123/63 93 03/13/17 03:00 90 03/13/17 02:00 100 03/13/17 02:00 100 34 143/79 92 03/13/17 01:00 98 03/13/17 01:00 98 28 152/83 92 03/13/17 00:00 98.2 97 17 171/86 91 03/13/17 00:00 97 03/12/17 23:00 97 24 144/80 94 03/12/17 23:00 97 03/12/17 22:00 99 03/12/17 22:00 99 9 156/76 93 03/12/17 21:33 98 21 03/12/17 21:00 100 33 155/80 95 03/12/17 21:00 100 03/12/17 20:00 85 03/12/17 20:00 98.1 85 28 143/81 96 03/12/17 19:00 98.1 86 24 97 03/12/17 19:00 86 03/12/17 18:00 93 26 132/71 97 03/12/17 18:00 93 03/12/17 17:00 92 19 132/73 100 03/12/17 17:00 92 03/12/17 16:00 89 12 125/68 97 03/12/17 16:00 89 03/12/17 15:00 85 03/12/17 15:00 85 11 139/83 100 03/12/17 14:00 84 22 143/82 99 03/12/17 14:00 84 03/12/17 13:00 87 22 132/80 98 03/12/17 13:00 87 03/12/17 12:00 98.5 90 24 131/73 99 03/12/17 12:00 90 03/12/17 11:00 95 24 125/71 96 03/12/17 11:00 95 I/O 03/12/17 03/12/17 03/12/17 03/13/17 03/13/17 03/13/17 07:00 15:00 23:00 07:00 15:00 23:00 Intake Total 1402 ml 1613 ml 1021 ml 710 ml Output Total 600 ml 1300 ml 575 ml 950 ml Balance 802 ml 313 ml 446 ml -240 ml Intake Oral 640 ml 480 ml 480 ml 240 ml IV Total 762 ml 1133 ml 541 ml 470 ml Output Urine Total 450 ml 600 ml 425 ml 500 ml Stool Total 150 ml 700 ml 150 ml 450 ml Laboratory Laboratory Tests Test 03/12/17 03/12/17 03/12/17 03/13/17 11:51 15:15 18:20 03:30 Sodium Level 138 139 141 Hemoglobin 9.1 8.3 Hematocrit 27.3 24.8 White Blood Count 8.0 Red Blood Count 2.64 Mean Corpuscular Volume 93.9 Mean Corpuscular Hemoglobin 31.6 Mean Corpuscular Hemoglobin 33.7 Concent Red Cell Distribution Width 13.0 Platelet Count 47 Mean Platelet Volume 8.9 Prothrombin Time 9.6 Prothromb Time International 0.9 Ratio Activated Partial 25.8 Thromboplast Time Potassium Level 3.1 Chloride Level 106 Carbon Dioxide Level 27.6 Anion Gap 7 Blood Urea Nitrogen 30 Creatinine 2.22 Estimat Glomerular Filtration 23 Rate Random Glucose 101 Calcium Level 7.8 Phosphorus Level 2.9 Magnesium Level 1.7 Total Bilirubin 0.7 Aspartate Amino Transf 118 (AST/SGOT) Alanine Aminotransferase 144 (ALT/SGPT) Alkaline Phosphatase 103 Ammonia 11 Total Protein 4.7 Albumin 2.1 Test 03/13/17 03/13/17 09:07 09:55 Blood Bank Comment Blood Type O POSITIVE Date/Time Procedure Status Source Growth 03/09/17 15:35 Aerobic Blood Culture - Preliminary Resulted Blood Peripheral NO GROWTH IN 3 DAYS 03/09/17 15:35 Anaerobic Blood Culture - Preliminary Resulted Blood Peripheral NO GROWTH IN 3 DAYS Imaging Last Impressions Chest X-Ray 03/12/17 0000 Signed Impressions: Service Date/Time: Sunday, March 12, 2017 04:13 - CONCLUSION: Mild haziness left lung base and probable mild case of pulmonary edema. K. Jluis Lawton MD Renal Ultrasound 03/11/17 0000 Signed Impressions: Service Date/Time: Saturday, March 11, 2017 08:19 - CONCLUSION: Kidneys are normal in size. Trace ascites and pleural effusion. Nitin Styles MD FACR Head CT 03/09/17 1407 Signed Impressions: Service Date/Time: Thursday, March 09, 2017 14:30 - CONCLUSION: Normal examination. Arturo Rivero Jr., MD Abdomen/Pelvis CT 03/09/17 0000 Signed Impressions: Service Date/Time: Thursday, March 09, 2017 14:36 - CONCLUSION: 1. Distended gallbladder with thick wall suspicious for at least chronic cholecystitis. Correlation is suggested. 2. Fatty replacement to the liver. Nitin Styles MD FACR Physical Exam HEENT: Normocephalic; atraumatic; no jaundice. CHEST: CTA CARDIAC: RRR ABDOMEN: Soft, nondistended, nontender; no hepatosplenomegaly; bowel sounds are present in all four quadrants. EXTREMITIES: No clubbing, cyanosis, or edema. SKIN: Normal; no rash; no jaundice. 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 (Saba Garcia) Assessment and Plan Plan ASSESSMENT: - Upper GI bleed, Coffee ground emesis. EGD (03/10/17)---> Esophagitis, gastritis. No further active bleeding. HH 8.3/24.8. - Hepatic encephalopathy. IMPROVED. Ammonia 11. Xifaxan. Lactulose d/c'd secondary to diarrhea (A/Ox3, nL ammonia). - Elevated LFTs, likely shocked liver due to hypotension, but could be combined with underlying liver dz and alcohol abuse, toxicology negative Hepatitis negative, KOBI negative, ASMA/AMA pending, Ceruloplasmin/Alpha 1 Antitrypsin pending. AFP 2.7, Iron saturation 47.6%. Ferritin 13,571, T. Bilirubin 0.7, AST 118, ALT 144, Alk Phosph 103. - Cholecystitis. CT abdomen pelvis showed a dilated gallbladder concerning for at least chronic Cholecystitis and fatty liver. Does not appear to be in acute cholecystitis at this point but will defer to the Gen. surgery service. GS following, started diet. - Respiratory failure/septic shock/leukocytosis. Improved. Now extubated. Zosyn - Alcohol abuse, hx of binge drinking X 5 days, was declined by Christopher Ying due to being too sick - Acute renal failure with electrolyte abnormalities, per primary/renal. Plan: - Diet as tolerated low-salt - Await ASMA, AMA, ceruloplasmin, alpha- 1 antitrypsin deficiency, celiac panel , Hfe gene - Monitor labs - Continue PPI - Cont. Abx - Notify Gi for active bleeding - Alcohol cessation, verbalizes understanding - Supportive care - Further recommendations to follow based on results of above. - Consider liver biopsy pending Hfe results - Pt seen and examined by Dr. Jesus and myself and this note is written on his behalf (Saba Garcia) Physician Comments Seen and examined with ANJELICA, doing better today. Figueroa in progress for elevated LFTs. Diarrhea and renal functions improved. (Regina Jseus MD) Saba Garcia Mar 13, 2017 10:31 Regina Jesus MD Mar 13, 2017 14:28
[2017-03-13] MEDS: PANTOPRAZOLE SODIUM 40 MG VIAL IV PUSH SCH ×2 (11:34→22:33)
--- NOTE | 2017-03-13 13:27 | HHI.PR ---
Subjective Subjective Notes Sitting up in bed Eating lunch; tolerating diet but does not like food Had had no abdominal pain Family at bedside Objective Vitals/I&O Vital Signs Date Time Temp Pulse Resp B/P Pulse Ox O2 Delivery O2 Flow Rate FiO2 03/13/17 12:00 87 03/13/17 12:00 98.8 12 149/88 93 03/12/17 21:33 21 03/12/17 08:52 Nasal Cannula 2.00 Labs Laboratory Tests Test 03/12/17 03/12/17 03/13/17 03/13/17 15:15 18:20 03:30 09:07 Hemoglobin 9.1 8.3 Hematocrit 27.3 24.8 Sodium Level 139 141 White Blood Count 8.0 Red Blood Count 2.64 Mean Corpuscular Volume 93.9 Mean Corpuscular Hemoglobin 31.6 Mean Corpuscular Hemoglobin 33.7 Concent Red Cell Distribution Width 13.0 Platelet Count 47 Mean Platelet Volume 8.9 Prothrombin Time 9.6 Prothromb Time International 0.9 Ratio Activated Partial 25.8 Thromboplast Time Potassium Level 3.1 Chloride Level 106 Carbon Dioxide Level 27.6 Anion Gap 7 Blood Urea Nitrogen 30 Creatinine 2.22 Estimat Glomerular Filtration 23 Rate Random Glucose 101 Calcium Level 7.8 Phosphorus Level 2.9 Magnesium Level 1.7 Total Bilirubin 0.7 Aspartate Amino Transf 118 (AST/SGOT) Alanine Aminotransferase 144 (ALT/SGPT) Alkaline Phosphatase 103 Ammonia 11 Total Protein 4.7 Albumin 2.1 Blood Bank Comment Test 03/13/17 09:55 Blood Type O POSITIVE Date/Time Procedure Status Source Growth 03/09/17 15:35 Aerobic Blood Culture - Preliminary Resulted Blood Peripheral NO GROWTH IN 4 DAYS 03/09/17 15:35 Anaerobic Blood Culture - Preliminary Resulted Blood Peripheral NO GROWTH IN 4 DAYS Cardiovascular: Regular Lungs: Clear Abdomen: Non-distended, Non-tender Extremities: No edema A/P Assessment and Plan 51 year old female + ETOH, Severe metabolic derangement with sepsis -Will continue to monitor abdominal exams---currently no abdominal pain -Tolerating heart healthy diet -No operative plans at this time -GS will sign off; please call with questions Attending Note - Dr. Sargent Abdomen benign Nonoperative management The exam, history, and the medical decision-making described in the above note were completed with the assistance of the mid-level provider. I reviewed and agree with the findings presented. I attest that I had a [id number] encounter with the patient on the same day, and personally performed and documented my assessment and findings in the medical record. Edna Cheema Mar 13, 2017 13:26 Toño Sargent MD Mar 13, 2017 19:45
[2017-03-13] MEDS: MELATONIN 5 MG TAB PO SCH (21:02)
[2017-03-14] VITALS (9 sets, daily range): BP systolic 114–153; BP diastolic 69–93; PULSE 90–116; RESP 16–32; TEMP 98.4–100.4; O2SAT 96–100
[2017-03-14] MEDS: OLANZapine ODT 5 MG TAB PO PRN (01:42)
[2017-03-14] MEDS: PIPERACIL-TAZO 3.375 GM PREMIX 50 ML IV SCH ×2 (03:44→07:49)
[2017-03-14 04:14] LABS: HEMATOCRIT 23.2 % (35.0-46.0); MEAN CORPUSCULAR HEMOGLOBIN 32.1 PG (27.0-34.0); MEAN CORPUSCULAR HGB CONC 34.5 % (32.0-36.0); PLATELET COUNT 87 TH/MM3 (150-450); WHITE BLOOD COUNT 6.5 TH/MM3 (4.0-11.0)
[2017-03-14 04:17] LABS: REVIEW FLAG FINAL
[2017-03-14 04:29] LABS: APTT (PATIENT) 26.5 SEC (24.3-30.1); INTERNATIONAL NORMALIZED RATIO 0.9 RATIO; PROTHROMBIN TIME - PATIENT 10.2 SEC (9.8-11.6)
[2017-03-14 04:41] LABS: BICARBONATE 23.1 MEQ/L (21.0-32.0); CALCIUM-PROTEIN CORRECTED 8.5 MG/DL (8.5-10.1); MAGNESIUM 1.6 MG/DL (1.5-2.5); TOTAL BILIRUBIN ADULT 0.5 MG/DL (0.2-1.0)
[2017-03-14 04:50] LABS: POTASSIUM 2.7 MEQ/L (3.5-5.1)
[2017-03-14] MEDS: POTASSIUM CHLORIDE 20 MEQ CONTROLLED RELEASE TAB PO SCH ×2 (06:08→10:04)
[2017-03-14] MEDS: RIFAXIMIN 550 MG TAB PO SCH ×2 (07:49→21:03)
[2017-03-14] MEDS: THIAMINE HCL 100 MG TAB PO SCH (07:49)
[2017-03-14] MEDS: PANTOPRAZOLE SODIUM 40 MG VIAL IV PUSH SCH (10:05)
--- NOTE | 2017-03-14 14:20 | HHI.PR ---
Subjective Remarks Follow-up for multiple medical issues Patient denies any shortness of breathing, pain, or nausea vomiting. She stated that she is able to talk by mouth intake but has loss of appetite so has not been eating much. She remains afebrile. Patient asking to speak to him regards to disability. When I ask her what type disability she stated that for her anxiety multiple issues. Objective Vitals Vital Signs Date Time Temp Pulse Resp B/P Pulse Ox O2 Delivery O2 Flow Rate FiO2 03/14/17 10:45 98.9 96 20 133/84 98 03/14/17 10:00 98 03/14/17 08:00 90 03/14/17 08:00 99.9 90 24 136/69 100 03/14/17 06:00 112 03/14/17 04:00 95 03/14/17 04:00 98.5 95 32 149/80 03/14/17 02:00 93 03/14/17 00:00 116 03/14/17 00:00 98.9 116 22 144/79 96 03/13/17 22:00 95 03/13/17 20:57 100 21 03/13/17 20:00 99.3 110 20 165/89 95 03/13/17 20:00 110 03/13/17 18:00 111 03/13/17 16:00 92 03/13/17 16:00 98.5 92 16 152/79 98 03/13/17 15:33 96 21 I/O 03/13/17 03/13/17 03/13/17 03/14/17 03/14/17 03/14/17 07:00 15:00 23:00 07:00 15:00 23:00 Intake Total 710 ml 1309 ml 550 ml 580 ml 600 ml Output Total 950 ml 751 ml Balance -240 ml 558 ml 550 ml 580 ml 600 ml Intake Oral 240 ml 600 ml 480 ml 480 ml 480 ml IV Total 470 ml 419 ml 70 ml 100 ml 120 ml Platelets 290 ml Output Urine Total 500 ml 750 ml Stool Total 450 ml 1 ml # Voids 2 3 1 # Bowel Movements 2 1 1 Result Diagram: 03/14/17 0340 03/14/17 0340 Objective Remarks GENERAL: in nad SKIN: Warm and dry. HEAD: Normocephalic. EYES: No scleral icterus. No injection or drainage. NECK: Supple, trachea midline. No JVD or lymphadenopathy. CARDIOVASCULAR: Regular rate and rhythm without murmurs, gallops, or rubs. RESPIRATORY: Breath sounds equal bilaterally. No accessory muscle use. GASTROINTESTINAL: Abdomen soft, non-tender, nondistended. MUSCULOSKELETAL: No cyanosis, or edema. BACK: Nontender without obvious deformity. No CVA tenderness. Medications and IVs Current Medications IV Flush 2 ml 2 ml UNSCH PRN IV FLUSH FLUSH AFTER USING IV ACCESS; Start at 14:15 Sodium Chloride 1,000 ml @ 1,000 mls/hr Q1H IV Last administered on 03/09/17 15:29; Start 03/09/17 at 14:07; Stop 03/09/17 at 15:06; Status DC Pantoprazole Sodium 80 mg/ Sodium Chloride 35 ml @ 420 mls/hr ONCE ONCE IV Last administered on 03/09/17 16:22; Start 03/09/17 at 15:15; Stop 03/09/17 at 15: 19; Status DC Pantoprazole Sodium 80 mg/ Sodium Chloride 100 ml @ 10 mls/hr Q10H IV Last administered on 03/09/17 17:26; Start 03/09/17 at 15:15; Stop 03/10/17 at 10:16; Status DC Sodium Chloride (NS 1000 ml Inj) 1,000 ml @ 999 mls/hr BOLUS ONCE IV Last administered on 03/09/17 15:29; Start 03/09/17 at 14:45; Stop 03/09/17 at 15:45; Status DC Sodium Bicarbonate 10 meq 10 meq ONCE ONCE IV ; Start 03/09/17 at 14:45; Stop at 15:59; Status DC Sodium Bicarbonate 154 meq/Sodium Chloride 1,000 ml @ 0 mls/hr Q0M IV Last administered on 03/09/17 17:27; Start 03/09/17 at 14:34; Stop 03/10/17 at 10:16; Status DC Propofol (Diprivan 1000 Mg/100ml Inj) 100 ml @ As Directed STK-MED ONCE .ROUTE Last administered on 03/09/17 15:28; Start 03/09/17 at 14:56; Stop 03/09/17 at 14:57; Status DC Midazolam HCl (Versed Inj) 5 mg STK-MED ONCE .ROUTE Last administered on 15:32; Start 03/09/17 at 15:21; Stop 03/09/17 at 15:22; Status DC Succinylcholine Chloride (Quelicin Inj) 100 mg ONCE ONCE IV PUSH Last administered on 03/09/17 15:49; Start 03/09/17 at 15:45; Stop 03/09/17 at 15:47; Status DC Etomidate 20 mg 20 mg ONCE ONCE IV PUSH Last administered on 03/09/17 15:49; Start 03/09/17 at 15:45; Stop 03/09/17 at 15:47; Status DC Propofol (Diprivan 1000 Mg/100ml Inj) 100 ml @ 0 mls/hr TITRATE IV ; Start at 15:45; Stop 03/09/17 at 17:04; Status DC Midazolam HCl 5 mg 5 mg ONCE ONCE IV PUSH Last administered on 03/09/17 15:50 ; Start 03/09/17 at 15:45; Stop 03/09/17 at 15:47; Status DC Piperacillin Sod/ Tazobactam Sod 100 ml @ 200 mls/hr ONCE ONCE IV Last administered on 03/09/17 16:14; Start 03/09/17 at 15:45; Stop 03/09/17 at 16:14; Status DC Vancomycin HCl 1000 mg/Sodium Chloride 250 ml @ 250 mls/hr ONCE ONCE IV Last administered on 03/09/17 16:15; Start 03/09/17 at 15:45; Stop 03/09/17 at 16:44; Status DC Sodium Chloride (NS 1000 ml Inj) 1,000 ml @ 999 mls/hr BOLUS ONCE IV Last administered on 03/09/17 16:23; Start 03/09/17 at 15:45; Stop 03/09/17 at 16:45; Status DC Lactulose (Lactulose Liq) 30 ml ONCE ONCE OG-TUBE Last administered on 16:14; Start 03/09/17 at 16:00; Stop 03/09/17 at 16:01; Status DC Thiamine HCl (Thiamine Inj) 100 mg ONCE ONCE IM Last administered on 03/09/17 16:14; Start 03/09/17 at 16:00; Stop 03/09/17 at 16:01; Status DC Sodium Bicarbonate (Sodium Bicarbonate 8.4% Inj) 25 meq ONCE ONCE IV PUSH ; Start 03/09/17 at 16:00; Stop 03/09/17 at 16:01; Status DC Lactulose (Lactulose Liq) 30 ml QID PO Last administered on 03/12/17 09:11; Start 03/09/17 at 18:00; Stop 03/12/17 at 14:53; Status DC Rifaximin 550 mg 550 mg BID PO Last administered on 03/12/17 09:12; Start 03/09 at 21:00; Stop 03/12/17 at 14:53; Status DC Pharmacy Profile Note 0 ml @ 0 mls/hr UNSCH OTHER ; Start 03/09/17 at 16:00; Stop 03/12/17 at 08:39; Status DC Piperacillin Sod/ Tazobactam Sod 100 ml @ 200 mls/hr Q6H IV Last administered on 03/10/17 09:23; Start 03/09/17 at 20:00; Stop 03/10/17 at 10:35; Status DC Norepinephrine Bitartrate (Levophed-Dextrose Drip) 250 ml @ 0 mls/hr TITRATE IV ; Start 03/09/17 at 16:30; Stop 03/10/17 at 10:16; Status DC Terbutaline Sulfate (Brethine Inj) 1 mg UNSCH PRN SQ For Extravasation; Start 03/09/17 at 16:30; Stop 03/10/17 at 10:17; Status DC Fentanyl Citrate (fentaNYL INJ) 50 mcg Q1H PRN IV SEE LABEL COMMENTS; Start 03/09/17 at 16:45; Stop 03/10/17 at 10:19; Status DC Albuterol/ Ipratropium (Duoneb Neb) 1 ampule Q6HR NEB NEB Last administered on 03/13/17 20:57; Start 03/09/17 at 22:00; Stop 03/13/17 at 22:00; Status DC Albuterol Sulfate (Albuterol Neb) 2.5 mg Q4HR NEB PRN INH SHORTNESS OF BREATH; Start 03/09/17 at 16:45 Chlorhexidine Gluconate (Peridex 0.12% Liq) 15 ml BID@08,20 MT Last administered on 03/11/17 08:37; Start 03/09/17 at 20:00; Stop 03/11/17 at 11:49 ; Status DC Miscellaneous Information 1 [id number] XX Last administered on 03/09/17 16:45; Start 03/09/17 at 16:45 Chlorhexidine Gluconate (Chlorhexidine 2% Cloth) 3 pack Taper DAILY@04 TOP Last administered on 03/11/17 04:00; Start 03/10/17 at 04:00; Stop 03/11/17 at 11:49; Status DC Chlorhexidine Gluconate 3 pack 3 pack UNSCH PRN TOP HYGIENIC CARE; Start at 16:45; Stop 03/11/17 at 11:49; Status DC Propofol 100 ml @ 0 mls/hr TITRATE IV Last administered on 03/11/17 06:30; Start 03/09/17 at 16:45; Stop 03/11/17 at 11:49; Status DC Midazolam HCl (Versed Inj) 100 ml @ 0 mls/hr TITRATE IV Last administered on 04:35; Start 03/09/17 at 16:45; Stop 03/10/17 at 10:17; Status DC Midazolam HCl 5 mg 5 mg STK-MED ONCE .ROUTE ; Start 03/09/17 at 16:44; Stop at 16:45; Status DC Thiamine HCl/ Sodium Chloride (Thiamine Inj/NS Inj) 101 ml @ 101 mls/hr DAILY IV Last administered on 03/11/17 08:11; Start 03/09/17 at 19:00; Stop 03/11/17 at 23:59; Status DC Lidocaine/ Epinephrine (Xylocaine-Epi 1%-1:100,000 Inj) 30 ml ONCE ONCE INFIL ; Start 03/09/17 at 17:00; Stop 03/09/17 at 17:01; Status DC Lidocaine HCl (Xylocaine 1% Inj) 30 ml ONCE ONCE INFIL ; Start 03/09/17 at 17:15 ; Stop 03/09/17 at 17:16; Status DC Lidocaine/ Epinephrine (Xylocaine-Epi 1%-1:100,000 Inj) 20 ml ONCE ONCE INFIL ; Start 03/09/17 at 17:15; Stop 03/09/17 at 17:16; Status DC Lidocaine HCl (Xylocaine 1% Inj (50 ml)) 50 ml ONCE ONCE INFIL ; Start 03/09/17 at 17:15; Stop 03/09/17 at 17:16; Status DC Octreotide Acetate 50 mcg 50 mcg ONCE ONCE IV Last administered on 03/09/17 19 :39; Start 03/09/17 at 17:15; Stop 03/09/17 at 17:23; Status DC Octreotide Acetate 500 mcg/ Sodium Chloride 500.0 ml @ 50 mls/hr Q10H IV Last administered on 03/10/17 04:35; Start 03/09/17 at 19:15; Stop 03/10/17 at 10:17 ; Status DC Sodium Bicarbonate/ Sodium Chloride (Sodium Bicarbonate 8.4% Inj/1/2 NS 1000 ml Inj) 1,075 ml @ 150 mls/hr Q7H10M IV Last administered on 03/09/17 19:37; Start 03/09/17 at 17:30; Stop 03/09/17 at 20:23; Status DC Calcium Chloride (Calcium Chloride Inj) 1 gm ONCE ONCE IV PUSH ; Start 03/09/17 at 17:45; Stop 03/09/17 at 17:46; Status DC Calcium Chloride 1 gm 1 gm ONCE ONCE IV PUSH ; Start 03/09/17 at 17:45; Stop 03/09/17 at 17:46; Status DC Calcium Chloride/ Dextrose (Calcium Chloride Inj/D5W 100 ml Inj) 120 ml @ 120 mls/hr ONCE ONCE IV Last administered on 03/09/17 19:38; Start 03/09/17 at 18: 15; Stop 03/09/17 at 19:14; Status DC Sodium Bicarbonate 100 meq 100 meq NOW ONCE IV Last administered on 03/09/17 20:30; Start 03/09/17 at 20:30; Stop 03/09/17 at 20:31; Status DC Sodium Bicarbonate 150 meq/Sodium Chloride 1,150 ml @ 150 mls/hr Q7H40M IV Last administered on 03/10/17 04:35; Start 03/09/17 at 20:23; Stop 03/10/17 at 10:29; Status DC Vancomycin HCl/ Sodium Chloride (Vancomycin Inj/ NS 250 ml Inj) 250 ml @ 250 mls/hr ONCE@1200 ONCE IV Last administered on 03/10/17 11:57; Start 03/10/17 at 12:00; Stop 03/10/17 at 12:59; Status DC Pantoprazole Sodium (Protonix Inj) 40 mg Q12H IV PUSH Last administered on 03/14 10:05; Start 03/10/17 at 11:00 Haloperidol Lactate (Haldol Inj) 5 mg Q4H PRN IV PUSH agitation; Start at 10:30 Melatonin (Melatonin) 5 mg HS PO Last administered on 03/13/17 21:02; Start at 21:00 Olanzapine 5 mg 5 mg Q24H PRN PO if not asleep by 2300 Last administered on 01:42; Start 03/10/17 at 23:00 Fentanyl Citrate (fentaNYL DRIP) 250 ml @ 0 mls/hr TITRATE IV ; Start 03/10/17 at 10:30; Stop 03/11/17 at 11:49; Status DC Thiamine HCl 100 mg 100 mg DAILY PO Last administered on 03/14/17 07:49; Start 03/14/17 at 09:00 Sodium Chloride 1,000 ml @ 75 mls/hr [id number] IV Last administered on 23:04; Start 03/10/17 at 10:30; Stop 03/11/17 at 08:07; Status DC Piperacillin Sod/ Tazobactam Sod (Zosyn 3.375 Gm Premix) 50 ml @ 100 mls/hr Q6H IV Last administered on 03/14/17 07:49; Start 03/10/17 at 15:00 Dextrose (D50w (Vial) Inj) 25 ml UNSCH PRN IV PUSH HYPOGLYCEMIA-SEE COMMENTS; Start 03/10/17 at 10:30; Stop 03/13/17 at 17:16; Status DC Insulin Human Regular 1 1 Q6HR SQ Last administered on 03/11/17 17:20; Start 03/10/17 at 12:00; Stop 03/13/17 at 17:16; Status DC Potassium Chloride (KCl 40 Meq Premix Inj) 100 ml @ 50 mls/hr BOLUS ONCE IV Last administered on 03/11/17 08:11; Start 03/11/17 at 07:45; Stop 03/11/17 at 09:44; Status DC Potassium Bicarb/ Potassium Chloride 75 meq 75 meq ONCE ONCE PO Last administered on 03/11/17 08:11; Start 03/11/17 at 07:45; Stop 03/11/17 at 07:46 ; Status DC Dextrose (D5W 1000 ml Inj) 1,000 ml @ 75 mls/hr [id number] IV Last administered on 03/13/17 05:22; Start 03/11/17 at 08:15; Stop 03/13/17 at 08:53; Status DC Desmopressin Acetate 2 mcg 2 mcg ONCE ONCE IV PUSH Last administered on 10:26; Start 03/11/17 at 08:15; Stop 03/11/17 at 08:16; Status DC Vancomycin HCl 1000 mg/Sodium Chloride 250 ml @ 250 mls/hr ONCE ONCE IV Last administered on 03/11/17 12:47; Start 03/11/17 at 12:00; Stop 03/11/17 at 12:59 ; Status DC Potassium Chloride 100 ml @ 50 mls/hr BOLUS ONCE IV Last administered on 03/12 09:12; Start 03/12/17 at 09:00; Stop 03/12/17 at 10:59; Status DC Magnesium Sulfate/ Dextrose (Magnesium Sulfate 1 Gm Premix) 100 ml @ 100 mls/ hr ONCE ONCE IV Last administered on 03/12/17 09:12; Start 03/12/17 at 09:00 ; Stop 03/12/17 at 09:59; Status DC Potassium Phosphate (K-Phos) 500 mg ONCE ONCE PO Last administered on 14:14; Start 03/12/17 at 12:15; Stop 03/12/17 at 12:20; Status DC Rifaximin (Xifaxan) 550 mg BID PO Last administered on 03/14/17 07:49; Start 03/12/17 at 21:00 Ondansetron HCl (Zofran Inj) 4 mg STK-MED ONCE .ROUTE ; Start 03/13/17 at 03:57 ; Stop 03/13/17 at 03:58; Status DC Ondansetron HCl 4 mg 4 mg Q6H PRN IV NAUSEA OR VOMITING Last administered on 22:33; Start 03/13/17 at 04:00 Potassium Phosphate/Sodium Chloride (Potassium Phosphate Inj/NS Inj) 155 ml @ 38.75 mls/ hr ONCE ONCE IV Last administered on 03/13/17 11:43; Start at 10:00; Stop 03/13/17 at 13:59; Status DC Potassium Chloride (KCl) 40 meq Q4H PO Last administered on 03/14/17 10:04; Start 03/14/17 at 06:00; Stop 03/14/17 at 10:01; Status DC Side: Right Location: Subclavian A/P Problem List: (1) Septic shock ICD Code: A41.9 Status: Acute (2) Acute respiratory failure ICD Code: J96.00 Status: Acute (3) Hepatic encephalopathy ICD Code: K72.90 Status: Acute (4) Metabolic acidemia ICD Code: E87.2 Status: Acute (5) Upper gastrointestinal bleed ICD Code: K92.2 Status: Acute (6) Probable acute cholecystitis Status: Acute (7) Acute kidney failure ICD Code: N17.9 Status: Acute (8) Iatrogenic pneumothorax ICD Code: J95.811 Status: Acute (9) Hypocalcemia ICD Code: E83.51 Status: Acute (10) Hyponatremia ICD Code: E87.1 Status: Acute (11) Transaminitis ICD Code: R74.0 Status: Acute Assessment and Plan Hepatic encephalopathy-resolved Alcohol dependence Agitated Delirium -Symptoms resolved completely. - Patient was initially intubated in which she was successfully extubated in the ICU. - She was given Haldol 5mg iv q 4h prn for agitation and now agitation has resolved completely. -Her ammonia was elevated. -She was initially on lactulose 30 mL to 6 hours but that was discontinued on -She was then put on rifaximin 550 mg by mouth po q12 -Thiamine 100 mg daily IV x 3 days then change to PO. -Tylenol and ASA levels normal. Urine drug screen is negative Acute hypoxic respiratory failure Severe metabolic acidosis- resolved. Iatrogenic right pneumothorax -Intubated for airway protection and significant metabolic acidosis -Incentive spirometry every hour while awake -Room air O2 sat 92% -DuoNeb every 6 hours and when necessary -Right pneumothorax secondary to ER physician placing a right central line, s/p chest tube placement. Chest tube discontinued 03/11 -03/12 chest x-ray no pneumothorax -Patient currently asymptomatic. Shock- likely not septic, no infectious etiology identified, resolved. Lactic acidosis- resolved Likely severe dehydration-resolved -Patient was given aggressive fluid resuscitation and which shock resolved. -Telemetry normal sinus rhythm Upper GI bleed Acute hepatitis with very elevated Transaminases -no more evidence of active bleeding. s/p protonix and octreotide drips -Protonix BID IV PPI. -General surgery and gastroenterology following. -no active intervention for gallbladder at this time, felt to be more likely secondary to acute hepatitis. -Broad-spectrum antibiotics but since there are no signs of infection clinically patient is doing very well will check with GI to see if they are okay with discontinuing antibiotics and monitor patient off of antibiotics. - Per Dr. Nelson, more likely to be ischemic hepatitis than alcohol induced. -hepatitis panel pending. Acute kidney injury-secondary to hypotension -Due to severe hypotension. -Aggressive fluid resuscitation as above -Monitor renal function closely. Burden catheter - send urine electrolytes and renal ultrasound. hyaline casts on u/a on admission, likely ATN. monitor. -Creatinine continues to improve. Patient has good urine output. -Avoid nephrotoxins. Thrombocytopenia -Monitor CBC, CMP, Coags -Platelet count 47, transfuse 1 unit of platelets on cysts 03/13/17 -Hemoglobin is stable. Platelets have improved. No signs of any bleeding. -Continue to monitor. Hypocalcemia-resolved Hypernatremia-resolved Hyperglycemia-resolved Hypokalemia -Will recheck potassium magnesium and replace as needed. PROPH: -Bilateral lower extremity SCDs. Patient to ambulate around the room out of bed to chair IV BID PPI. hold on starting chemical DVT prophylaxis given concern for GI bleed and drop in hgb. Discharge Planning Patient clinically is doing well. Will need to continue to replenish potassium as needed. Will need to monitor off antibiotics since there are no source of infection, but will need to speak to GI be d/isis. Shelby Negron MD Mar 14, 2017 14:20
--- NOTE | 2017-03-14 16:02 | HHI.GIFU ---
Subjective Remarks Sitting up in bed. No n/v. No abdominal pain. Tolerating diet. Only complaint is that she is retaining fluids. (Saba Garcia) Objective Vitals I&O Vital Signs Date Time Temp Pulse Resp B/P Pulse Ox O2 Delivery O2 Flow Rate FiO2 03/14/17 10:45 98.9 96 20 133/84 98 03/14/17 10:00 98 03/14/17 08:00 90 03/14/17 08:00 99.9 90 24 136/69 100 03/14/17 06:00 112 03/14/17 04:00 95 03/14/17 04:00 98.5 95 32 149/80 03/14/17 02:00 93 03/14/17 00:00 116 03/14/17 00:00 98.9 116 22 144/79 96 03/13/17 22:00 95 03/13/17 20:57 100 21 03/13/17 20:00 99.3 110 20 165/89 95 03/13/17 20:00 110 03/13/17 18:00 111 03/13/17 16:00 92 03/13/17 16:00 98.5 92 16 152/79 98 I/O 03/13/17 03/13/17 03/13/17 03/14/17 03/14/17 03/14/17 06:59 14:59 22:59 06:59 14:59 22:59 Intake Total 710 ml 1309 ml 550 ml 580 ml 600 ml Output Total 950 ml 751 ml Balance -240 ml 558 ml 550 ml 580 ml 600 ml Intake Oral 240 ml 600 ml 480 ml 480 ml 480 ml IV Total 470 ml 419 ml 70 ml 100 ml 120 ml Platelets 290 ml Output Urine Total 500 ml 750 ml Stool Total 450 ml 1 ml # Voids 2 3 1 # Bowel Movements 2 1 1 Laboratory Laboratory Tests Test 03/14/17 03:40 White Blood Count 6.5 Red Blood Count 2.50 Hemoglobin 8.0 Hematocrit 23.2 Mean Corpuscular Volume 93.0 Mean Corpuscular Hemoglobin 32.1 Mean Corpuscular Hemoglobin 34.5 Concent Red Cell Distribution Width 13.0 Platelet Count 87 Mean Platelet Volume 9.1 Prothrombin Time 10.2 Prothromb Time International 0.9 Ratio Activated Partial 26.5 Thromboplast Time Sodium Level 140 Potassium Level 2.7 Chloride Level 103 Carbon Dioxide Level 23.1 Anion Gap 14 Blood Urea Nitrogen 24 Creatinine 1.93 Estimat Glomerular Filtration 27 Rate Random Glucose 87 Calcium Level 7.3 Protein Corrected Calcium 8.5 Phosphorus Level 3.7 Magnesium Level 1.6 Total Bilirubin 0.5 Aspartate Amino Transf 47 (AST/SGOT) Alanine Aminotransferase 101 (ALT/SGPT) Alkaline Phosphatase 90 Ammonia 10 Total Protein 4.9 Albumin 2.1 Imaging Last Impressions Chest X-Ray 03/12/17 0000 Signed Impressions: Service Date/Time: Sunday, March 12, 2017 04:13 - CONCLUSION: Mild haziness left lung base and probable mild case of pulmonary edema. Lester Lawton MD Renal Ultrasound 03/11/17 0000 Signed Impressions: Service Date/Time: Saturday, March 11, 2017 08:19 - CONCLUSION: Kidneys are normal in size. Trace ascites and pleural effusion. Nitin Styles MD FACR Head CT 03/09/17 1407 Signed Impressions: Service Date/Time: Thursday, March 09, 2017 14:30 - CONCLUSION: Normal examination. Arturo Rivero Jr., MD Abdomen/Pelvis CT 03/09/17 0000 Signed Impressions: Service Date/Time: Thursday, March 09, 2017 14:36 - CONCLUSION: 1. Distended gallbladder with thick wall suspicious for at least chronic cholecystitis. Correlation is suggested. 2. Fatty replacement to the liver. Nitin Styles MD FACR Physical Exam HEENT: Normocephalic; atraumatic; no jaundice. CHEST: CTA CARDIAC: RRR ABDOMEN: Soft, nondistended, nontender; no hepatosplenomegaly; bowel sounds are present in all four quadrants. EXTREMITIES: Mild generalized edema. SKIN: Normal; no rash; no jaundice. GREASE MONKEY: No focal deficits; alert and oriented times three. (Saba Garcia) Assessment and Plan Plan ASSESSMENT: - Upper GI bleed, Coffee ground emesis. EGD (03/10/17)---> Esophagitis, gastritis. No further active bleeding. HH stable at 8.0/23.2. - Hepatic encephalopathy. RESOLVED. Ammonia 11. Xifaxan. Lactulose d/c'd secondary to diarrhea (A/Ox3, nL ammonia). Diarrhea improving. - Elevated LFTs, likely shocked liver due to hypotension, but could be combined with underlying liver dz and alcohol abuse, toxicology negative Hepatitis negative, KOBI negative, ASMA negative, AMA pending, Ceruloplasmin 15, Alpha 1 Antitrypsin 176. AFP 2.7, Iron saturation 47.6%. Ferritin 13,571, Celiac negative. Hfe pending. T. Bilirubin 0.5, AST 47, ALT 101, Alk Phosph 90. - Cholecystitis. CT abdomen pelvis showed a dilated gallbladder concerning for at least chronic Cholecystitis and fatty liver. Does not appear to be in acute cholecystitis at this point but will defer to the Gen. surgery service. GS following, started diet. - Respiratory failure/septic shock/leukocytosis. Improved. Now extubated. Zosyn stopped. Low grade fever. BCx negative. - Alcohol abuse, hx of binge drinking X 5 days, was declined by [facility] Ying due to being too sick - Acute renal failure with electrolyte abnormalities, per primary/renal. Plan: - Diet as tolerated low-salt - Await AMA, Hfe gene - Monitor labs - Continue PPI - ? Liver biopsy, pending Hfe Gene results. - Notify Gi for active bleeding - Alcohol cessation, verbalizes understanding - If patient is stable and ready for d/c medically, then we can follow her Hfe Gene/Possible liver biopsy as outpatient. Pt understands the importance of complete ETOH cessation and GI FU. - If discharged tomorrow, FU MARY 2 weeks - Pt seen and examined by Dr. Jesus and myself and this note is written on his behalf (Saba Garcia) Physician Comments Agree with above, may need liver biopsy. (Regina Jesus MD) Saba Garcia Mar 14, 2017 16:02 Regina Jesus MD Mar 14, 2017 16:26
[2017-03-14 18:46] LABS: POTASSIUM 3.2 MEQ/L (3.5-5.1)
[2017-03-14 18:47] LABS: MAGNESIUM 1.8 MG/DL (1.5-2.5)
[2017-03-14] MEDS: MELATONIN 5 MG TAB PO SCH (21:03)
[2017-03-15] VITALS: BP 162/95; PULSE 120; RESP 18; TEMP 100.3; O2SAT 96
[2017-03-15] MEDS: OLANZapine ODT 5 MG TAB PO PRN ×2 (01:10→23:50)
[2017-03-15 04:00] VITALS: BP 167/94; PULSE 116; RESP 18; TEMP 100.3; O2SAT 94
[2017-03-15 08:00] VITALS: BP 146/74; PULSE 98; RESP 16; TEMP 98.4; O2SAT 97
[2017-03-15] MEDS: THIAMINE HCL 100 MG TAB PO SCH (08:49)
[2017-03-15] MEDS: PANTOPRAZOLE SOD 40 MG DELAYED RELEASE TAB PO SCH (08:49)
[2017-03-15] MEDS: RIFAXIMIN 550 MG TAB PO SCH ×2 (08:49→20:55)
[2017-03-15] MEDS ORDERED: POTASSIUM CHLORIDE 20 MEQ CONTROLLED RELEASE TAB PO ONE (10:00)
--- NOTE | 2017-03-15 10:40 | HHI.PR ---
Subjective Remarks Follow-up for possible infection Patient had low-grade fever yesterday. She denies any shortness of breathing, cough, abdominal pain, any urinary symptoms. Patient stated she feels great and very anxious to go home. She stated that she has not been walking much. She also deny any nausea or vomiting. Objective Vitals Vital Signs Date Time Temp Pulse Resp B/P Pulse Ox O2 Delivery O2 Flow Rate FiO2 03/15/17 08:00 98.4 98 16 146/74 97 03/15/17 04:00 100.3 116 18 167/94 94 03/15/17 00:00 100.3 120 18 162/95 96 03/14/17 20:00 100.4 97 20 152/93 100 03/14/17 16:00 98.4 93 16 153/79 97 03/14/17 10:45 98.9 96 20 133/84 98 I/O 03/14/17 03/14/17 03/14/17 03/15/17 03/15/17 03/15/17 07:00 15:00 23:00 07:00 15:00 23:00 Intake Total 580 ml 1320 ml Balance 580 ml 1320 ml Intake Oral 480 ml 1200 ml IV Total 100 ml 120 ml # Voids 3 7 # Bowel Movements 1 3 Result Diagram: 03/14/17 0340 03/14/17 1658 Objective Remarks GENERAL: in nad SKIN: Warm and dry. HEAD: Normocephalic. EYES: No scleral icterus. No injection or drainage. NECK: Supple, trachea midline. No JVD or lymphadenopathy. CARDIOVASCULAR: Regular rate and rhythm without murmurs, gallops, or rubs. RESPIRATORY: Breath sounds equal bilaterally. No accessory muscle use. GASTROINTESTINAL: Abdomen soft, non-tender, nondistended. MUSCULOSKELETAL: No cyanosis, or edema. BACK: Nontender without obvious deformity. No CVA tenderness. Medications and IVs Current Medications IV Flush 2 ml 2 ml UNSCH PRN IV FLUSH FLUSH AFTER USING IV ACCESS; Start at 14:15 Sodium Chloride 1,000 ml @ 1,000 mls/hr Q1H IV Last administered on 03/09/17t 15:29; Start 03/09/17 at 14:07; Stop 03/09/17 at 15:06; Status DC Pantoprazole Sodium 80 mg/ Sodium Chloride 35 ml @ 420 mls/hr ONCE ONCE IV Last administered on 03/09/17 16:22; Start 03/09/17 at 15:15; Stop 03/09/17 at 15: 19; Status DC Pantoprazole Sodium 80 mg/ Sodium Chloride 100 ml @ 10 mls/hr Q10H IV Last administered on 03/09/17 17:26; Start 03/09/17 at 15:15; Stop 03/10/17 at 10:16; Status DC Sodium Chloride (NS 1000 ml Inj) 1,000 ml @ 999 mls/hr BOLUS ONCE IV Last administered on 03/09/17 15:29; Start 03/09/17 at 14:45; Stop 03/09/17 at 15:45; Status DC Sodium Bicarbonate 10 meq 10 meq ONCE ONCE IV ; Start 03/09/17 at 14:45; Stop at 15:59; Status DC Sodium Bicarbonate 154 meq/Sodium Chloride 1,000 ml @ 0 mls/hr Q0M IV Last administered on 03/09/17 17:27; Start 03/09/17 at 14:34; Stop 03/10/17 at 10:16; Status DC Propofol (Diprivan 1000 Mg/100ml Inj) 100 ml @ As Directed STK-MED ONCE .ROUTE Last administered on 03/09/17 15:28; Start 03/09/17 at 14:56; Stop 03/09/17 at 14:57; Status DC Midazolam HCl (Versed Inj) 5 mg STK-MED ONCE .ROUTE Last administered on 15:32; Start 03/09/17 at 15:21; Stop 03/09/17 at 15:22; Status DC Succinylcholine Chloride (Quelicin Inj) 100 mg ONCE ONCE IV PUSH Last administered on 03/09/17 15:49; Start 03/09/17 at 15:45; Stop 03/09/17 at 15:47; Status DC Etomidate 20 mg 20 mg ONCE ONCE IV PUSH Last administered on 03/09/17 15:49; Start 03/09/17 at 15:45; Stop 03/09/17 at 15:47; Status DC Propofol (Diprivan 1000 Mg/100ml Inj) 100 ml @ 0 mls/hr TITRATE IV ; Start at 15:45; Stop 03/09/17 at 17:04; Status DC Midazolam HCl 5 mg 5 mg ONCE ONCE IV PUSH Last administered on 03/09/17 15:50 ; Start 03/09/17 at 15:45; Stop 03/09/17 at 15:47; Status DC Piperacillin Sod/ Tazobactam Sod 100 ml @ 200 mls/hr ONCE ONCE IV Last administered on 03/09/17 16:14; Start 03/09/17 at 15:45; Stop 03/09/17 at 16:14; Status DC Vancomycin HCl 1000 mg/Sodium Chloride 250 ml @ 250 mls/hr ONCE ONCE IV Last administered on 03/09/17 16:15; Start 03/09/17 at 15:45; Stop 03/09/17 at 16:44; Status DC Sodium Chloride (NS 1000 ml Inj) 1,000 ml @ 999 mls/hr BOLUS ONCE IV Last administered on 03/09/17 16:23; Start 03/09/17 at 15:45; Stop 03/09/17 at 16:45; Status DC Lactulose (Lactulose Liq) 30 ml ONCE ONCE OG-TUBE Last administered on 16:14; Start 03/09/17 at 16:00; Stop 03/09/17 at 16:01; Status DC Thiamine HCl (Thiamine Inj) 100 mg ONCE ONCE IM Last administered on 03/09/17 16:14; Start 03/09/17 at 16:00; Stop 03/09/17 at 16:01; Status DC Sodium Bicarbonate (Sodium Bicarbonate 8.4% Inj) 25 meq ONCE ONCE IV PUSH ; Start 03/09/17 at 16:00; Stop 03/09/17 at 16:01; Status DC Lactulose (Lactulose Liq) 30 ml QID PO Last administered on 03/12/17 09:11; Start 03/09/17 at 18:00; Stop 03/12/17 at 14:53; Status DC Rifaximin 550 mg 550 mg BID PO Last administered on 03/12/17 09:12; Start 03/09 at 21:00; Stop 03/12/17 at 14:53; Status DC Pharmacy Profile Note 0 ml @ 0 mls/hr UNSCH OTHER ; Start 03/09/17 at 16:00; Stop 03/12/17 at 08:39; Status DC Piperacillin Sod/ Tazobactam Sod 100 ml @ 200 mls/hr Q6H IV Last administered on 03/10/17 09:23; Start 03/09/17 at 20:00; Stop 03/10/17 at 10:35; Status DC Norepinephrine Bitartrate (Levophed-Dextrose Drip) 250 ml @ 0 mls/hr TITRATE IV ; Start 03/09/17 at 16:30; Stop 03/10/17 at 10:16; Status DC Terbutaline Sulfate (Brethine Inj) 1 mg UNSCH PRN SQ For Extravasation; Start 03/09/17 at 16:30; Stop 03/10/17 at 10:17; Status DC Fentanyl Citrate (fentaNYL INJ) 50 mcg Q1H PRN IV SEE LABEL COMMENTS; Start 03/09/17 at 16:45; Stop 03/10/17 at 10:19; Status DC Albuterol/ Ipratropium (Duoneb Neb) 1 ampule Q6HR NEB NEB Last administered on 03/13/17 20:57; Start 03/09/17 at 22:00; Stop 03/13/17 at 22:00; Status DC Albuterol Sulfate (Albuterol Neb) 2.5 mg Q4HR NEB PRN INH SHORTNESS OF BREATH; Start 03/09/17 at 16:45 Chlorhexidine Gluconate (Peridex 0.12% Liq) 15 ml BID@08,20 MT Last administered on 03/11/17 08:37; Start 03/09/17 at 20:00; Stop 03/11/17 at 11:49 ; Status DC Miscellaneous Information 1 [id number] XX Last administered on 03/09/17 16:45; Start 03/09/17 at 16:45 Chlorhexidine Gluconate (Chlorhexidine 2% Cloth) 3 pack Taper DAILY@04 TOP Last administered on 03/11/17 04:00; Start 03/10/17 at 04:00; Stop 03/11/17 at 11:49; Status DC Chlorhexidine Gluconate 3 pack 3 pack UNSCH PRN TOP HYGIENIC CARE; Start at 16:45; Stop 03/11/17 at 11:49; Status DC Propofol 100 ml @ 0 mls/hr TITRATE IV Last administered on 03/11/17 06:30; Start 03/09/17 at 16:45; Stop 03/11/17 at 11:49; Status DC Midazolam HCl (Versed Inj) 100 ml @ 0 mls/hr TITRATE IV Last administered on 04:35; Start 03/09/17 at 16:45; Stop 03/10/17 at 10:17; Status DC Midazolam HCl 5 mg 5 mg STK-MED ONCE .ROUTE ; Start 03/09/17 at 16:44; Stop at 16:45; Status DC Thiamine HCl/ Sodium Chloride (Thiamine Inj/NS Inj) 101 ml @ 101 mls/hr DAILY IV Last administered on 03/11/17 08:11; Start 03/09/17 at 19:00; Stop 03/11/17 at 23:59; Status DC Lidocaine/ Epinephrine (Xylocaine-Epi 1%-1:100,000 Inj) 30 ml ONCE ONCE INFIL ; Start 03/09/17 at 17:00; Stop 03/09/17 at 17:01; Status DC Lidocaine HCl (Xylocaine 1% Inj) 30 ml ONCE ONCE INFIL ; Start 03/09/17 at 17:15 ; Stop 03/09/17 at 17:16; Status DC Lidocaine/ Epinephrine (Xylocaine-Epi 1%-1:100,000 Inj) 20 ml ONCE ONCE INFIL ; Start 03/09/17 at 17:15; Stop 03/09/17 at 17:16; Status DC Lidocaine HCl (Xylocaine 1% Inj (50 ml)) 50 ml ONCE ONCE INFIL ; Start 03/09/17 at 17:15; Stop 03/09/17 at 17:16; Status DC Octreotide Acetate 50 mcg 50 mcg ONCE ONCE IV Last administered on 03/09/17 19 :39; Start 03/09/17 at 17:15; Stop 03/09/17 at 17:23; Status DC Octreotide Acetate 500 mcg/ Sodium Chloride 500.0 ml @ 50 mls/hr Q10H IV Last administered on 03/10/17 04:35; Start 03/09/17 at 19:15; Stop 03/10/17 at 10:17 ; Status DC Sodium Bicarbonate/ Sodium Chloride (Sodium Bicarbonate 8.4% Inj/1/2 NS 1000 ml Inj) 1,075 ml @ 150 mls/hr Q7H10M IV Last administered on 03/09/17 19:37; Start 03/09/17 at 17:30; Stop 03/09/17 at 20:23; Status DC Calcium Chloride (Calcium Chloride Inj) 1 gm ONCE ONCE IV PUSH ; Start 03/09/17 at 17:45; Stop 03/09/17 at 17:46; Status DC Calcium Chloride 1 gm 1 gm ONCE ONCE IV PUSH ; Start 03/09/17 at 17:45; Stop 03/09/17 at 17:46; Status DC Calcium Chloride/ Dextrose (Calcium Chloride Inj/D5W 100 ml Inj) 120 ml @ 120 mls/hr ONCE ONCE IV Last administered on 03/09/17 19:38; Start 03/09/17 at 18: 15; Stop 03/09/17 at 19:14; Status DC Sodium Bicarbonate 100 meq 100 meq NOW ONCE IV Last administered on 03/09/17 20:30; Start 03/09/17 at 20:30; Stop 03/09/17 at 20:31; Status DC Sodium Bicarbonate 150 meq/Sodium Chloride 1,150 ml @ 150 mls/hr Q7H40M IV Last administered on 03/10/17 04:35; Start 03/09/17 at 20:23; Stop 03/10/17 at 10:29; Status DC Vancomycin HCl/ Sodium Chloride (Vancomycin Inj/ NS 250 ml Inj) 250 ml @ 250 mls/hr ONCE@1200 ONCE IV Last administered on 03/10/17 11:57; Start 03/10/17 at 12:00; Stop 03/10/17 at 12:59; Status DC Pantoprazole Sodium (Protonix Inj) 40 mg Q12H IV PUSH Last administered on 03/14 10:05; Start 03/10/17 at 11:00; Stop 03/14/17 at 16:04; Status DC Haloperidol Lactate (Haldol Inj) 5 mg Q4H PRN IV PUSH agitation; Start at 10:30 Melatonin (Melatonin) 5 mg HS PO Last administered on 03/14/17 21:03; Start at 21:00 Olanzapine 5 mg 5 mg Q24H PRN PO if not asleep by 2300 Last administered on 01:10; Start 03/10/17 at 23:00 Fentanyl Citrate (fentaNYL DRIP) 250 ml @ 0 mls/hr TITRATE IV ; Start 03/10/17 at 10:30; Stop 03/11/17 at 11:49; Status DC Thiamine HCl 100 mg 100 mg DAILY PO Last administered on 03/15/17 08:49; Start 03/14/17 at 09:00 Sodium Chloride 1,000 ml @ 75 mls/hr [id number] IV Last administered on 23:04; Start 03/10/17 at 10:30; Stop 03/11/17 at 08:07; Status DC Piperacillin Sod/ Tazobactam Sod (Zosyn 3.375 Gm Premix) 50 ml @ 100 mls/hr Q6H IV Last administered on 03/14/17 07:49; Start 03/10/17 at 15:00; Stop at 15:09; Status DC Dextrose (D50w (Vial) Inj) 25 ml UNSCH PRN IV PUSH HYPOGLYCEMIA-SEE COMMENTS; Start 03/10/17 at 10:30; Stop 03/13/17 at 17:16; Status DC Insulin Human Regular 1 1 Q6HR SQ Last administered on 03/11/17 17:20; Start 03/10/17 at 12:00; Stop 03/13/17 at 17:16; Status DC Potassium Chloride (KCl 40 Meq Premix Inj) 100 ml @ 50 mls/hr BOLUS ONCE IV Last administered on 03/11/17 08:11; Start 03/11/17 at 07:45; Stop 03/11/17 at 09:44; Status DC Potassium Bicarb/ Potassium Chloride 75 meq 75 meq ONCE ONCE PO Last administered on 03/11/17 08:11; Start 03/11/17 at 07:45; Stop 03/11/17 at 07:46 ; Status DC Dextrose (D5W 1000 ml Inj) 1,000 ml @ 75 mls/hr [id number] IV Last administered on 03/13/17 05:22; Start 03/11/17 at 08:15; Stop 03/13/17 at 08:53; Status DC Desmopressin Acetate 2 mcg 2 mcg ONCE ONCE IV PUSH Last administered on 10:26; Start 03/11/17 at 08:15; Stop 03/11/17 at 08:16; Status DC Vancomycin HCl 1000 mg/Sodium Chloride 250 ml @ 250 mls/hr ONCE ONCE IV Last administered on 03/11/17 12:47; Start 03/11/17 at 12:00; Stop 03/11/17 at 12:59 ; Status DC Potassium Chloride 100 ml @ 50 mls/hr BOLUS ONCE IV Last administered on 03/12 09:12; Start 03/12/17 at 09:00; Stop 03/12/17 at 10:59; Status DC Magnesium Sulfate/ Dextrose (Magnesium Sulfate 1 Gm Premix) 100 ml @ 100 mls/ hr ONCE ONCE IV Last administered on 03/12/17 09:12; Start 03/12/17 at 09:00 ; Stop 03/12/17 at 09:59; Status DC Potassium Phosphate (K-Phos) 500 mg ONCE ONCE PO Last administered on 14:14; Start 03/12/17 at 12:15; Stop 03/12/17 at 12:20; Status DC Rifaximin (Xifaxan) 550 mg BID PO Last administered on 03/15/17 08:49; Start 03/12/17 at 21:00 Ondansetron HCl (Zofran Inj) 4 mg STK-MED ONCE .ROUTE ; Start 03/13/17 at 03:57 ; Stop 03/13/17 at 03:58; Status DC Ondansetron HCl 4 mg 4 mg Q6H PRN IV NAUSEA OR VOMITING Last administered on 22:33; Start 03/13/17 at 04:00 Potassium Phosphate/Sodium Chloride (Potassium Phosphate Inj/NS Inj) 155 ml @ 38.75 mls/ hr ONCE ONCE IV Last administered on 03/13/17 11:43; Start at 10:00; Stop 03/13/17 at 13:59; Status DC Potassium Chloride (KCl) 40 meq Q4H PO Last administered on 03/14/17 10:04; Start 03/14/17 at 06:00; Stop 03/14/17 at 10:01; Status DC Pantoprazole Sodium (Protonix) 40 mg DAILY PO Last administered on 03/15/17 08 :49; Start 03/15/17 at 09:00 Potassium Chloride (KCl) 20 meq ONCE ONCE PO ; Start 03/15/17 at 10:00; Stop at 10:01; Status UNV Side: Right Location: Subclavian A/P Problem List: (1) Septic shock ICD Code: A41.9 Status: Acute (2) Acute respiratory failure ICD Code: J96.00 Status: Acute (3) Hepatic encephalopathy ICD Code: K72.90 Status: Acute (4) Metabolic acidemia ICD Code: E87.2 Status: Acute (5) Upper gastrointestinal bleed ICD Code: K92.2 Status: Acute (6) Probable acute cholecystitis Status: Acute (7) Acute kidney failure ICD Code: N17.9 Status: Acute (8) Iatrogenic pneumothorax ICD Code: J95.811 Status: Acute (9) Hypocalcemia ICD Code: E83.51 Status: Acute (10) Hyponatremia ICD Code: E87.1 Status: Acute (11) Transaminitis ICD Code: R74.0 Status: Acute Assessment and Plan Fevers -Patient had low-grade fever last night. IV antibiotic was stopped yesterday. -She is asymptomatic and clinically looks well. Dealt with GI and stated to monitor former day. -Blood cultures so far negative. Encourage patient to ambulate today. Hepatic encephalopathy-resolved Alcohol dependence Agitated Delirium -Symptoms resolved completely. - Patient was initially intubated in which she was successfully extubated in the ICU. - She was given Haldol 5mg iv q 4h prn for agitation and now agitation has resolved completely. -Her ammonia was elevated. -She was initially on lactulose 30 mL to 6 hours but that was discontinued on -She was then put on rifaximin 550 mg by mouth po q12 -Thiamine 100 mg daily IV x 3 days then change to PO. -Tylenol and ASA levels normal. Urine drug screen is negative Acute hypoxic respiratory failure Severe metabolic acidosis- resolved. Iatrogenic right pneumothorax -Intubated for airway protection and significant metabolic acidosis -Incentive spirometry every hour while awake -Room air O2 sat 92% -DuoNeb every 6 hours and when necessary -Right pneumothorax secondary to ER physician placing a right central line, s/p chest tube placement. Chest tube discontinued 03/11 -03/12 chest x-ray no pneumothorax -Patient currently asymptomatic. Shock- likely not septic, no infectious etiology identified, resolved. Lactic acidosis- resolved Likely severe dehydration-resolved -Patient was given aggressive fluid resuscitation and which shock resolved. -Telemetry normal sinus rhythm Upper GI bleed Acute hepatitis with very elevated Transaminases -no more evidence of active bleeding. s/p protonix and octreotide drips -Protonix BID IV PPI. -General surgery and gastroenterology following. -no active intervention for gallbladder at this time, felt to be more likely secondary to acute hepatitis. -Broad-spectrum antibiotics but since there are no signs of infection clinically patient is doing very well will check with GI to see if they are okay with discontinuing antibiotics and monitor patient off of antibiotics. - Per Dr. Nelson, more likely to be ischemic hepatitis than alcohol induced. -hepatitis panel pending. Acute kidney injury-secondary to hypotension -Due to severe hypotension. -Aggressive fluid resuscitation as above -Monitor renal function closely. Burden catheter - send urine electrolytes and renal ultrasound. hyaline casts on u/a on admission, likely ATN. monitor. -Creatinine continues to improve. Patient has good urine output. -Avoid nephrotoxins. Thrombocytopenia -Monitor CBC, CMP, Coags -Platelet count 47, transfuse 1 unit of platelets on cysts 03/13/17 -Hemoglobin is stable. Platelets have improved. No signs of any bleeding. -Continue to monitor. Hypocalcemia-resolved Hypernatremia-resolved Hyperglycemia-resolved Hypokalemia -Will recheck potassium magnesium and replace as needed. PROPH: -Bilateral lower extremity SCDs. Patient to ambulate around the room out of bed to chair IV BID PPI. hold on starting chemical DVT prophylaxis given concern for GI bleed and drop in hgb. Discharge Planning Patient clinically is doing well but developed low-grade fever last night off of IV antibiotic per. No source of infection. Per GI will need to monitor for at least 1 more day. Shelby Negron MD Mar 15, 2017 10:40
[2017-03-15 11:22] LABS: HEMATOCRIT 26.3 % (35.0-46.0); MEAN CELL VOLUME 94.4 FL (80.0-100.0); MEAN CORPUSCULAR HEMOGLOBIN 31.7 PG (27.0-34.0); MEAN CORPUSCULAR HGB CONC 33.6 % (32.0-36.0); PLATELET COUNT 179 TH/MM3 (150-450); RED BLOOD COUNT 2.78 MIL/MM3 (4.00-5.30); RED CELL DISTRIBUTION WIDTH 13.3 % (11.6-17.2); REVIEW FLAG FINAL; WHITE BLOOD COUNT 7.1 TH/MM3 (4.0-11.0)
[2017-03-15 11:31] LABS: APTT (PATIENT) 25.1 SEC (24.3-30.1); INTERNATIONAL NORMALIZED RATIO 0.9 RATIO; PROTHROMBIN TIME - PATIENT 10.4 SEC (9.8-11.6)
[2017-03-15 11:36] LABS: ANION GAP 14 MEQ/L (5-15); AST (GOT) 28 U/L (15-37); BICARBONATE 23.3 MEQ/L (21.0-32.0); BLOOD UREA NITROGEN 20 MG/DL (7-18); CHLORIDE 104 MEQ/L (98-107); GLOMERULAR FILTRATION RATE 34 ML/MIN (>89); MAGNESIUM 1.7 MG/DL (1.5-2.5); SODIUM (NA) 141 MEQ/L (136-145)
[2017-03-15 11:37] LABS: ALT (GPT) 84 U/L (10-53)
[2017-03-15 11:39] LABS: ALKALINE PHOSPHATASE 92 U/L (45-117); TOTAL BILIRUBIN ADULT 0.5 MG/DL (0.2-1.0)
[2017-03-15 12:00] VITALS: BP 151/92; PULSE 85; RESP 16; TEMP 98.5; O2SAT 98
--- NOTE | 2017-03-15 12:27 | HHI.GIFU ---
Subjective Remarks Resting in bed. Had low grade fevers overnight. Had nausea with meal but states it is the "hospital food." She is not having any abdominal pain or tenderness. She is still having diarrhea, but states it is becoming a thicker consistency and she believes it is improving. Still 2-3 per day. (Saba Garcia) Objective Vitals I&O Vital Signs Date Time Temp Pulse Resp B/P Pulse Ox O2 Delivery O2 Flow Rate FiO2 03/15/17 08:00 98.4 98 16 146/74 97 03/15/17 04:00 100.3 116 18 167/94 94 03/15/17 00:00 100.3 120 18 162/95 96 03/14/17 20:00 100.4 97 20 152/93 100 03/14/17 16:00 98.4 93 16 153/79 97 I/O 03/14/17 03/14/17 03/14/17 03/15/17 03/15/17 03/15/17 07:00 15:00 23:00 07:00 15:00 23:00 Intake Total 580 ml 1320 ml Balance 580 ml 1320 ml Intake Oral 480 ml 1200 ml IV Total 100 ml 120 ml # Voids 3 7 # Bowel Movements 1 3 Laboratory Laboratory Tests Test 03/14/17 03/15/17 16:58 10:21 Potassium Level 3.2 3.0 Magnesium Level 1.8 1.7 White Blood Count 7.1 Red Blood Count 2.78 Hemoglobin 8.8 Hematocrit 26.3 Mean Corpuscular Volume 94.4 Mean Corpuscular Hemoglobin 31.7 Mean Corpuscular Hemoglobin 33.6 Concent Red Cell Distribution Width 13.3 Platelet Count 179 Mean Platelet Volume 8.3 Prothrombin Time 10.4 Prothromb Time International 0.9 Ratio Activated Partial 25.1 Thromboplast Time Sodium Level 141 Chloride Level 104 Carbon Dioxide Level 23.3 Anion Gap 14 Blood Urea Nitrogen 20 Creatinine 1.60 Estimat Glomerular Filtration 34 Rate Random Glucose 85 Calcium Level 7.9 Phosphorus Level 2.7 Total Bilirubin 0.5 Aspartate Amino Transf 28 (AST/SGOT) Alanine Aminotransferase 84 (ALT/SGPT) Alkaline Phosphatase 92 Ammonia 12 Total Protein 5.8 Albumin 2.4 Imaging Last Impressions Chest X-Ray 03/12/17 0000 Signed Impressions: Service Date/Time: Sunday, March 12, 2017 04:13 - CONCLUSION: Mild haziness left lung base and probable mild case of pulmonary edema. Lester Lawton MD Renal Ultrasound 03/11/17 0000 Signed Impressions: Service Date/Time: Saturday, March 11, 2017 08:19 - CONCLUSION: Kidneys are normal in size. Trace ascites and pleural effusion. Nitin Styles MD FACR Head CT 03/09/17 1407 Signed Impressions: Service Date/Time: Thursday, March 09, 2017 14:30 - CONCLUSION: Normal examination. Arturo Rivero Jr., MD Abdomen/Pelvis CT 03/09/17 0000 Signed Impressions: Service Date/Time: Thursday, March 09, 2017 14:36 - CONCLUSION: 1. Distended gallbladder with thick wall suspicious for at least chronic cholecystitis. Correlation is suggested. 2. Fatty replacement to the liver. Nitin Styles MD FACR Physical Exam HEENT: Normocephalic; atraumatic; no jaundice. CHEST: CTA CARDIAC: RRR ABDOMEN: Soft, nondistended, nontender; no hepatosplenomegaly; bowel sounds are present in all four quadrants. EXTREMITIES: Mild generalized edema. SKIN: Normal; no rash; no jaundice. FITNESS ATTENDANT: No focal deficits; alert and oriented times three. (Saba Garcia [facility]) Assessment and Plan Plan ASSESSMENT: - Upper GI bleed, Coffee ground emesis. EGD (03/10/17)---> Esophagitis, gastritis. No further active bleeding. HH stable at 8.8/26.3. No GI bleeding. - Persistent fevers. CT revealed dilated gallbladder concerning for at least chronic cholecystitis and fatty liver, she was asymptomatic and GS did not feel this was acute cholecystitis. She is tolerating diet. Still having diarrhea, although improving. Will get RUQ US to evaluate for GB wall thickening/pericholecystic fluid, check stool studies , and plan for colonoscopy in am to r/o colitis. (Pt has never had a colonoscopy). She is agreeable. - Hepatic encephalopathy. RESOLVED. Ammonia 11. Xifaxan. Lactulose d/c'd secondary to diarrhea (A/Ox3, nL ammonia). Diarrhea improving. - Elevated LFTs, likely shocked liver due to hypotension, but could be combined with underlying liver dz and alcohol abuse, toxicology negative Hepatitis negative, KOBI negative, ASMA negative, AMA pending, Ceruloplasmin 15, Alpha 1 Antitrypsin 176. AFP 2.7, Iron saturation 47.6%. Ferritin 13,571, Celiac negative. Hfe pending. LFTs continue to improve. - Possible Cholecystitis. CT abdomen pelvis showed a dilated gallbladder concerning for at least chronic cholecystitis and fatty liver, she was asymptomatic and GS did not feel this was acute cholecystitis. Given her persistent fevers, we will check an US. - Respiratory failure/septic shock/leukocytosis. Improved. Now extubated. Zosyn stopped. Low grade fever. BCx negative. - Alcohol abuse, hx of binge drinking X 5 days, was declined by Christopher Ying due to being too sick - Acute renal failure with electrolyte abnormalities, per primary/renal. Plan: - Plan for colonoscopy in am - Obtain consents - Clear liquids - NPO after MN - Golytely prep - CDiff, Stool studies - RUQ US - Await AMA, Hfe gene - Monitor labs - Continue PPI - ? Liver biopsy, pending Hfe Gene results. - Notify Gi for active bleeding - Alcohol cessation, verbalizes understanding - Pt seen and examined by Dr. Jesus and myself and this note is written on his behalf (Saba Garcia) Physician Comments Seen and examined with ANJELICA, colonoscopy planned for tomorrow for diarrhea and anemia. Low grade fevers, u/s liver also recommended. (Regina Jesus MD) Saba Garcia Mar 15, 2017 12:27 Regina Jesus MD Mar 15, 2017 14:41
[2017-03-15 13:53] LABS: MITOCHONDRIAL ABS LESS THAN 20.0 U (())
[2017-03-15 16:00] VITALS: BP 142/82; PULSE 86; RESP 15; TEMP 99; O2SAT 99
[2017-03-15] MEDS ORDERED: PEG (High)/E-LYTE SOLN 4000 ML BTL PO ONE (16:00)
--- NOTE | 2017-03-15 19:33 | RADRPT ---
EXAM DATE/TIME: 03/15/2017 18:12 [facility] COMPARISON: CT ABDOMEN & PELVIS W/O CONTRAST, March 09, 2017, 14:36. INDICATIONS : Acute cholelithiasis. MEDICAL HISTORY : Altered mental status. Sepsis. Alcohol abuse. Tobacco use. SURGICAL HISTORY : Unable to obtain. ENCOUNTER: Initial ACUITY: 1 day PAIN SCORE: 0/10 LOCATION: Right upper quadrant MEASUREMENTS: LIVER: 15.5 cm length COMMON DUCT: 4 mm RIGHT KIDNEY: 11.0 x 5.2 x 6.0 cm FINDINGS: LIVER: Liver is fatty infiltrated. No focal hepatic lesion. No ductal dilatation. COMMON DUCT: No intraluminal mass or stone visualized. GALLBLADDER: Partly contracted and accounting for this, wall thickness of 4 mm is within normal limits. Negative s onographic Velez's sign. No pericholecystic fluid. PANCREAS: The visualized portions are within normal limits. RIGHT KIDNEY: No evidence of hydronephrosis, stone, or mass. An at least small right pleural effusion is incidentally noted. CONCLUSION: 1. Fatty liver. 2. 4 mm gallbladder wall thickness but incompletely distended. Doubt cholecystitis. No pericholecysti c fluid seen. Negative sonographic Velez's sign. I don't see a stone. 3. Small right pleural effusion noted. Bogdan López MD on March 15, 2017 at 19:28 Board Certified Radiologist. This report was verified electronically.
[2017-03-15 20:00] VITALS: BP 178/94; PULSE 85; RESP 18; TEMP 97.9; O2SAT 100
[2017-03-15] MEDS: MELATONIN 5 MG TAB PO SCH (20:55)
[2017-03-15 22:32] LABS: C. DIFF EPI 027 PRESUMPTIVE NEGATIVE (NEGATIVE); C. DIFF TOXIN PCR NEGATIVE (NEGATIVE)
[2017-03-16] VITALS: BP 150/82; PULSE 104; RESP 20; TEMP 98.7; O2SAT 97
[2017-03-16 04:00] VITALS: BP 160/74; PULSE 106; RESP 20; TEMP 100.1; O2SAT 95
[2017-03-16 08:14] VITALS: BP 148/77; PULSE 105; RESP 20; TEMP 99; O2SAT 98
[2017-03-16 08:40] VITALS: BP 153/82; PULSE 96; RESP 18; TEMP 99.3; O2SAT 98
[2017-03-16 08:42] LABS: AUTOMATED NEUTROPHIL # 3.4 TH/MM3 (1.8-7.7); BASOPHIL % 0.4 % (0.0-2.0); EOSINOPHIL # 0.2 TH/MM3 (0-0.4); EOSINOPHIL % 3.1 % (0.0-4.0); HEMATOCRIT 24.6 % (35.0-46.0); HEMO FLAGS DIFF FINAL; LYMPH % 19.5 % (9.0-44.0); LYMPHOCYTE # 1.3 TH/MM3 (1.0-4.8); MEAN CORPUSCULAR HEMOGLOBIN 31.9 PG (27.0-34.0); MEAN CORPUSCULAR HGB CONC 33.9 % (32.0-36.0); MONO % 25.6 % (0.0-8.0); NEUT % 51.4 % (16.0-70.0); PLATELET COUNT 280 TH/MM3 (150-450); RED BLOOD COUNT 2.62 MIL/MM3 (4.00-5.30); RED CELL DISTRIBUTION WIDTH 13.2 % (11.6-17.2); WHITE BLOOD COUNT 6.5 TH/MM3 (4.0-11.0)
[2017-03-16 08:48] LABS: APTT (PATIENT) 23.7 SEC (24.3-30.1); PROTHROMBIN TIME - PATIENT 10.7 SEC (9.8-11.6)
[2017-03-16 09:12] LABS: ANION GAP 14 MEQ/L (5-15); AST (GOT) 22 U/L (15-37); BICARBONATE 22.6 MEQ/L (21.0-32.0); BLOOD UREA NITROGEN 18 MG/DL (7-18); CHLORIDE 107 MEQ/L (98-107); GLOMERULAR FILTRATION RATE 36 ML/MIN (>89); MAGNESIUM 1.6 MG/DL (1.5-2.5); POTASSIUM 3.3 MEQ/L (3.5-5.1); SODIUM (NA) 144 MEQ/L (136-145)
[2017-03-16 09:13] LABS: ALT (GPT) 68 U/L (10-53)
[2017-03-16 09:15] LABS: ALKALINE PHOSPHATASE 85 U/L (45-117); TOTAL BILIRUBIN ADULT 0.4 MG/DL (0.2-1.0)
[2017-03-16] MEDS ORDERED: PROPOFOL 200 MG/20 ML AMP IV PUSH ONE (09:15)
--- NOTE | 2017-03-16 09:47 | GIPROC ---
[facility] [address] [facility]. [facility], [id number] COLONOSCOPY PROCEDURE REPORT EXAM DATE: 03/16/2017 PATIENT NAME: Flakita Kumar MR #: [id number] BIRTHDATE: 1965 ENDOSCOPIST: Regina Jesus MD ORDER #: [id number] PRODUCTION SUPERVISOR OFF SHIFT: Cary Kirkland and Jeff Barker STATUS: inpatient INDICATIONS: The patient is a 51 yr old female here for a colonoscopy due to abdominal pain and iron deficiency anemia PROCEDURE PERFORMED: Colonoscopy with polypectomy MEDICATIONS: None and Per Anesthesia. PREP QUALITY: The Barco Bowel Prep Score was Right colon 2, Mid colon 2, and Left colon 3. Total = 7. PREP TYPE:GoLytely ESTIMATED BLOOD LOSS: None CONSENT: The patient understands the risks and benefits of the procedure and understands that these risks include, but are not limited to: sedation, allergic reaction, infection, perforation and/or bleeding. Alternative means of evaluation and treatment include, among others: physical exam, x-rays, and/or surgical intervention. The patient elects to proceed with this endoscopic procedure. medical equipment was checked for proper function. Hand hygiene and appropriate measures for infection prevention was taken. After the risks, benefits and alternatives of the procedure were thoroughly explained, Informed consent was verified, confirmed and timeout was successfully executed by the treatment team. A digital exam revealed external hemorrhoids The Pentax [id number] endoscope was introduced through the anus and advanced to the cecum, which was identified by both the appendix and ileocecal valve. The instrument was then slowly withdrawn as the colon was fully examined. COLON FINDINGS: A polypoid shaped semi-pedunculated polyp ranging between 5-9mm in size was found in the sigmoid colon. A polypectomy was performed using snare cautery. The resection was complete and the polyp tissue was completely retrieved. Retroflexed views revealed internal hemorrhoids and Retroflexed views revealed small internal hemorrhoids The scope was then completely withdrawn from the patient and the procedure terminated. ADVERSE EVENTS: There were no complications. IMPRESSIONS: 1. A semi-pedunculated polyp ranging between 5-9mm in size was found in the sigmoid colon; polypectomy was performed using snare cautery 2. Retroflexed views revealed internal hemorrhoids 3. Retroflexed views revealed small internal hemorrhoids 4. Revealed external hemorrhoids RECOMMENDATIONS: 1. Await biopsy results. Biopsy results will not be ready for 7-10 days. If you don't hear from us in two weeks, call our office for results. 2. Yearly hemoccult RECALL: Return 3 years Colonoscopy, pending biopsy results Regina Jesus MD eSigned: Regina Jesus MD 03/16/2017 9:47 AM cc:
[2017-03-16] MEDS: RIFAXIMIN 550 MG TAB PO SCH (10:45)
[2017-03-16] MEDS: THIAMINE HCL 100 MG TAB PO SCH (10:45)
[2017-03-16] MEDS: PANTOPRAZOLE SOD 40 MG DELAYED RELEASE TAB PO SCH (10:45)
[2017-03-16] MEDS ORDERED: OMEP40CA2 PO (11:33)
--- NOTE | 2017-03-16 11:34 | HHI.DS ---
Discharge Summary Admission Date Mar 09, 2017 at 15:54 Discharge Date: Mar 16, 2017 Admitting Diagnosis altered mental status, acute cholecystitis, sepsis, liver failure (1) Septic shock ICD Code: A41.9 Diagnosis: Principal (2) Acute respiratory failure ICD Code: J96.00 Diagnosis: Principal (3) Hepatic encephalopathy ICD Code: K72.90 Diagnosis: Principal (4) Metabolic acidemia ICD Code: E87.2 Diagnosis: Principal (5) Upper gastrointestinal bleed ICD Code: K92.2 Diagnosis: Principal (6) Acute kidney failure ICD Code: N17.9 Diagnosis: Principal (7) Iatrogenic pneumothorax ICD Code: J95.811 Diagnosis: Principal (8) Hypocalcemia ICD Code: E83.51 Diagnosis: Principal (9) Hyponatremia ICD Code: E87.1 Diagnosis: Principal (10) Gastritis ICD Code: K29.70 Diagnosis: Principal Procedures See hospital course. Brief History - From Admission Patient is a 51-year-old female with past medical history of alcohol dependence , no other known history was brought in by the family members after she went on a heavy drinking binge for 5 days. Family initially took the patient to [facility] but they refused admit as a patient was too sick. No other history is available as the patient is intubated and there is no bystander. Initial vitals showed a blood pressure 72/42 patient was tachycardic. She received 3 L normal saline IV fluid bolus. ABG showed pH of 7.14 with a base excess of -22. Patient also had altered mental status. Patient was intubated due to severe metabolic acidosis and altered mental status. Lab work came back abnormal, white count was 19.9 with left shift, BUN 38 creatinine of 1.76, protein corrected calcium was 6.9 bicarbonate was 9.5 goal is to 14 AST was 4426. Ammonia level was 247. ALT and lactic acid are pending at this time. A CT abdomen pelvis showed a dilated gallbladder concerning for at least chronic cholecystitis. Gen. surgery had been consulted for possible acute cholecystitis I evaluated the patient in the ED. Hemodynamically improved after 3 L boluses, patient remains confused on the ventilator. Patient was noted to have coffee- ground material from NG tube. IV Protonix infusion started and I have added octreotide. I have discussed with Dr. Nelson, patient will undergo EGD tomorrow a.m. patient received vancomycin and Zosyn in the ED which will be continued. General surgery consulted with Dr. Dumont pending at this time. I have also requested Tylenol and salicylate levels, Liver enzymes are extremely elevated which could be from ischemic hepatitis. It was also noted that patient had pneumothorax after central line placement by the ER physician. I have discussed this with Dr. Felix and she will place a chest tube. Lactate pending at this time CBC/BMP: 03/16/17 0826 03/16/17 0826 Significant Findings Laboratory Tests Test 03/14/17 03/14/17 03/15/17 03/16/17 03:40 16:58 10:21 08:26 Red Blood Count 2.50 MIL/MM3 2.78 MIL/MM3 2.62 MIL/MM3 (4.00-5.30) (4.00-5.30) (4.00-5.30) Hemoglobin 8.0 GM/DL 8.8 GM/DL 8.3 GM/DL (11.6-15.3) (11.6-15.3) (11.6-15.3) Hematocrit 23.2 % 26.3 % 24.6 % (35.0-46.0) (35.0-46.0) (35.0-46.0) Platelet Count 87 TH/MM3 (150-450) Potassium Level 2.7 MEQ/L 3.2 MEQ/L 3.0 MEQ/L 3.3 MEQ/L (3.5-5.1) (3.5-5.1) (3.5-5.1) (3.5-5.1) Blood Urea Nitrogen 24 MG/DL (7-18) 20 MG/DL (7-18) Creatinine 1.93 MG/DL 1.60 MG/DL 1.53 MG/DL (0.50-1.00) (0.50-1.00) (0.50-1.00) Estimat Glomerular Filtration 27 ML/MIN (>89) 34 ML/MIN (>89) 36 ML/MIN (>89) Rate Calcium Level 7.3 MG/DL 7.9 MG/DL 8.2 MG/DL (8.5-10.1) (8.5-10.1) (8.5-10.1) Aspartate Amino Transf 47 U/L (15-37) (AST/SGOT) Alanine Aminotransferase 101 U/L (10-53) 84 U/L (10-53) 68 U/L (10-53) (ALT/SGPT) Ammonia 10 MCMOL/L LESS THAN 10 (11-32) MCMOL/L (11-32) Total Protein 4.9 GM/DL 5.8 GM/DL 5.7 GM/DL (6.4-8.2) (6.4-8.2) (6.4-8.2) Albumin 2.1 GM/DL 2.4 GM/DL 2.3 GM/DL (3.4-5.0) (3.4-5.0) (3.4-5.0) Monocytes (%) (Auto) 25.6 % (0.0-8.0) Monocytes # (Auto) 1.7 TH/MM3 (0-0.9) Activated Partial 23.7 SEC Thromboplast Time (24.3-30.1) Random Glucose 72 MG/DL (74-106) Imaging Last Impressions Gall Bladder Ultrasound 03/15/17 0000 Signed Impressions: Service Date/Time: March 18:12 - CONCLUSION: 1. Fatty liver. 2. 4 mm gallbladder wall thickness but incompletely distended. Doubt cholecystitis. No pericholecystic fluid seen. Negative sonographic Velez's sign. I don't see a stone. 3. Small right pleural effusion noted. Bogdan López MD Chest X-Ray 03/12/17 0000 Signed Impressions: Service Date/Time: Sunday, March 12, 2017 04:13 - CONCLUSION: Mild haziness left lung base and probable mild case of pulmonary edema. Lester Lawton MD Renal Ultrasound 03/11/17 0000 Signed Impressions: Service Date/Time: Saturday, March 11, 2017 08:19 - CONCLUSION: Kidneys are normal in size. Trace ascites and pleural effusion. Nitin Styles MD FACR Head CT 03/09/17 5027 Signed Impressions: Service Date/Time: Thursday, March 09, 2017 14:30 - CONCLUSION: Normal examination. Arturo Rivero Jr., MD Abdomen/Pelvis CT 03/09/17 0000 Signed Impressions: Service Date/Time: Thursday, March 09, 2017 14:36 - CONCLUSION: 1. Distended gallbladder with thick wall suspicious for at least chronic cholecystitis. Correlation is suggested. 2. Fatty replacement to the liver. Nitin Styles MD FACR PE at Discharge GENERAL: in nad SKIN: Warm and dry. HEAD: Normocephalic. EYES: No scleral icterus. No injection or drainage. NECK: Supple, trachea midline. No JVD or lymphadenopathy. CARDIOVASCULAR: Regular rate and rhythm without murmurs, gallops, or rubs. RESPIRATORY: Breath sounds equal bilaterally. No accessory muscle use. GASTROINTESTINAL: Abdomen soft, non-tender, nondistended. MUSCULOSKELETAL: No cyanosis, or edema. BACK: Nontender without obvious deformity. No CVA tenderness. Pt update on day of discharge Follow-up for low-grade fever Patient has not had any low-grade fever for greater than 24 hours. She has no complaints. She is an bleeding. She is very anxious to go home. She denies any nausea, vomiting, abdominal pain, and chest pain. Hospital Course Hepatic encephalopathy-resolved Alcohol dependence Agitated Delirium -Patient presented with altered mental status in which she was admitted to the ICU since she was intubated. -She was given supportive care but also Haldol for agitation. -Once her mental status improved she was successfully extubated in the ICU. -Since ammonium level was elevated she was put on lactulose and that was discontinue on 03/13 in which she was switched to rifaxmin. Rifaxmin was not given on discharge. Per GI to not give medication. -She was also put on Thiamine -Urine drug screen was done and that was negative. Acute hypoxic respiratory failure Severe metabolic acidosis- Iatrogenic right pneumothorax -Intubated for airway protection and significant metabolic acidosis -Patient was given supportive care. When a right central line was placed patient had a right pneumothorax secondary to ER physician placing the central line. Chest tube was placed. Chest tube was discontinue on 03/11. - On 03/12 chest x-ray was repeated and showed no pneumothorax. -Patient currently asymptomatic. Shock Lactic acidosis- Likely severe dehydration-resolved -Patient was given aggressive fluid resuscitation and which shock resolved. -Telemetry normal sinus rhythm Upper GI bleed Acute hepatitis with very elevated Transaminases -Patient was treated initially with Protonix and octreotide drip. -She had a EGD done which showed gastritis and esophagitis in which she was transitioned to oral PPI. -She was treated empirically with Zosyn although there were really no source of infection. Patient was taken off Zosyn and had a low-grade fever one day after but did not resolve. She can continue to clinically do well. -She also had a colonoscopy done which showed semi-pedunculated polyp ranging between 5-9mm in size was found in the sigmoid colon; polypectomy was performed using snare cautery, internal hemorrhoids and external hemorrhoids. -Patient was directed to follow with GI in 2 weeks for results. Acute kidney injury-secondary to hypotension -Due to severe hypotension. -Aggressive fluid resuscitation with IV fluids which improved renal function. Patient may good urine output. - send urine electrolytes and renal ultrasound. hyaline casts on u/a on admission, likely ATN. monitor. -Creatinine continues to improve. Patient has good urine output. -Avoid nephrotoxins. Thrombocytopenia -Monitor CBC, CMP, Coags -Platelet count 47, transfuse 1 unit of platelets on cysts 03/13/17 -Hemoglobin is stable. Platelets have improved. No signs of any bleeding. -Continue to monitor. Hypocalcemia Hypernatremia Hyperglycemia Hypokalemia -Replenish as needed. Pt Condition on Discharge: Good Discharge Disposition: Discharge Home Discharge Time: <= 30 minutes Discharge Instructions DIET: Follow Instructions for: As Tolerated, No Restrictions Activities you can perform: Regular-No Restrictions Follow up Referrals: Gastroenterology - 2 Weeks @ [facility] New Medications: Omeprazole (Omeprazole) 40 Mg Cap 40 MG PO DAILY gastritis #30 Ref 0 CAP Shelby Negron MD Mar 16, 2017 11:34
--- NOTE | 2017-03-16 11:34 | HHI.DCPOC ---
Discharge Care Plan Diagnosis: (1) Acute respiratory failure (2) Septic shock (3) Hepatic encephalopathy (4) Upper gastrointestinal bleed (5) Renal insufficiency Goals to Promote Your Health * To prevent worsening of your condition and complications * To maintain your health at the optimal level Directions to Meet Your Goals Take your medications as prescribed Follow your dietary instruction Follow activity as directed Keep your appointments as scheduled Take your immunizations and boosters as scheduled If your symptoms worsen call your PCP, if no PCP go to Urgent Care Center or Emergency Room Smoking is Dangerous to Your Health. Avoid second hand smoke Call the 24-hour hour crisis hotline for domestic abuse at Shelby Negron MD Mar 16, 2017 11:33
[2017-03-16 12:00] VITALS: BP 165/79; PULSE 82; RESP 15; TEMP 97.5; O2SAT 100
--- NOTE | 2017-03-18 13:26 | HHI.PR ---
Addendum To [facility] Progress Not Reason for addendum: Additonal documentation (Patient paged about LE edema. She stated that she has been walking more and now has B/L LE edema. patient denied any calf pain. Denied any SOB or palpitations. She stated that her father gave her some lasix but has not taking it. patient seen in [facility] but does not know her baseline creatiniet. Told patient that most likely 3rd spacing due to excessive amount of IVFs given in the hospital since she was septic and in ARF. patient also has low albumin. patient told to self palpate calves and she stated no pain. recommend to elevate legs and get compression stockings. patient told if no improvement or worsens to go to ED for further work up. patient also told need to becareful with lasix because she has renal failure. I recommend not to take it until evaluated by PCP. Told patient to see her PCP SHAVON to see if she needs lasix and if so she will need close monitoring of her renal function. I also told patient need to see PCP for hospital follow up soon. patient understood and all question answer to her satisfication.) Shelby Negron MD Mar 18, 2017 13:26
[2017-03-20 08:36] LABS: HEREDITARY HEMOCHROM SPECIMEN WB Whole Blood (())
== END 2017-03-16 17:03 | disposition home or self-care (01) | DRG 441 ==
LOC: NEPE 13:43 → NEDA 15:54 → HIMW 18:00 → HOCB 03-14 10:36
PROVIDERS: ADMIT Family Medicine; ATTEND Family Medicine
PROC: 5A1945Z Respiratory Ventilation, 24-96 Consecutive Hours (ICD-10-PCS; principal; 2017-03-09)
PROC: 0BH17EZ Insertion of Endotracheal Airway into Trachea, Via Natural or Artificial Opening (ICD-10-PCS; 2017-03-09)
PROC: 0W9930Z Drainage of Right Pleural Cavity with Drainage Device, Percutaneous Approach (ICD-10-PCS; 2017-03-09)
PROC: 02HV33Z Insertion of Infusion Device into Superior Vena Cava, Percutaneous Approach (ICD-10-PCS; 2017-03-09)
PROC: 0DJ08ZZ Inspection of Upper Intestinal Tract, Via Natural or Artificial Opening Endoscopic (ICD-10-PCS; 2017-03-10)
PROC: 30233R1 Transfusion of Nonautologous Platelets into Peripheral Vein, Percutaneous Approach (ICD-10-PCS; 2017-03-13)
PROC: 0DBN8ZZ Excision of Sigmoid Colon, Via Natural or Artificial Opening Endoscopic (ICD-10-PCS; 2017-03-16)
DX: K72.00 Acute and subacute hepatic failure without coma (principal); J96.01 Acute respiratory failure with hypoxia; N17.0 Acute kidney failure with tubular necrosis; R57.9 Shock, unspecified; K29.71 Gastritis, unspecified, with bleeding; E87.0 Hyperosmolality and hypernatremia; F10.231 Alcohol dependence with withdrawal delirium; E87.2 Acidosis; J95.811 Postprocedural pneumothorax; E87.1 Hypo-osmolality and hyponatremia; D69.6 Thrombocytopenia, unspecified; E83.51 Hypocalcemia; E86.0 Dehydration; K29.70 Gastritis, unspecified, without bleeding; K81.1 Chronic cholecystitis; K76.0 Fatty (change of) liver, not elsewhere classified; K21.0 Gastro-esophageal reflux disease with esophagitis; R73.9 Hyperglycemia, unspecified; E87.6 Hypokalemia; F41.9 Anxiety disorder, unspecified; D50.9 Iron deficiency anemia, unspecified; D12.5 Benign neoplasm of sigmoid colon; K64.8 Other hemorrhoids; K64.4 Residual hemorrhoidal skin tags; Y90.0 Blood alcohol level of less than 20 mg/100 ml; Z72.0 Tobacco use
CPT/HCPCS: 31500; 32551; 36430; 36556; 36600; 70450; 71010; 74176; 76705; 76775; 76937; 80053; 80074; 80202; 80307; 81001; 81256; 82103; 82105; 82140; 82390; 82550; 82552; 82570; 82728; 82805; 82948; 83516; 83520; 83540; 83550; 83605; 83735; 83930; 84100; 84132; 84295; 84300; 84443; 84484; 85007; 85014; 85018; 85025; 85027; 85610; 85730; 86038; 86256; 86850; 86900; 86901; 87040; 87205; 87328; 87329; 87493; 87506; 87641; 88305; 93005; 94002; 94003; 94150; 94640; 94664; 94667; 96374; 96375; C9113; J0330; J2250; J2354; J2405; J2543; J2597; J3370; J3411; J3475; J3480; J7030; J7040; J7050; J7070; P9035